=== PATIENT | male | born 1965 | race African-American/Black ===

== ENCOUNTER → 2021-12-21 10:54 | Outpatient (BNVA) | payer OTHER, SELFPAY | PROVIDERS: PCP Internal Medicine; Visit Provider Physician Assistant | DX: K59.09 Other constipation (principal); R12 Heartburn; K58.9 Irritable bowel syndrome, unspecified; A04.8 Other specified bacterial intestinal infections; Z86.79 Personal history of other diseases of the circulatory system; Z12.11 Encounter for screening for malignant neoplasm of colon | CPT/HCPCS: 99202 ==

== ENCOUNTER 2022-02-13 17:12 | Outpatient (REF) | payer OTHER, SELFPAY | END 2022-02-13 17:13 | disposition home or self-care (01) | LOC: HO.LNP 17:12 | PROVIDERS: Visit Provider Physician Assistant | DX: A04.8 Other specified bacterial intestinal infections (principal) | CPT/HCPCS: 87338 ==

== ENCOUNTER 2022-02-19 14:41 | Outpatient (REF) | payer OTHER, SELFPAY ==
[2022-02-19 15:01] LABS: MANUAL DIFF FLAG NO
[2022-02-19 15:04] LABS: Basophils Percent Auto 0.5 % (0-2); Eosinophils Absolute Auto 0.2 X10*3/uL (0.0-0.4); Eosinophils Percent Auto 1.7 % (0-4); Hemoglobin 13.8 g/dl (14.0-18.0); Imm Gran Abs Auto 0.01 X10*3/uL (0.00-0.03); Imm Gran Pct Auto 0.1 % (0.0-0.4); Lymphocytes Absolute Auto 3.1 X10*3/uL (1.2-4.9); Lymphocytes Percent Auto 35.8 % (20-40); Mean Corpuscular HGB Conc 32.1 g/dl (31.0-36.0); Mean Corpuscular Hemoglobin 26.3 pg (27.0-33.0); Mean Corpuscular Volume 81.9 fL (80.0-98.0); Monocytes Absolute Auto 0.7 X10*3/uL (0.1-1.2); Monocytes Percent Auto 8.5 % (2-11); Neutrophils Absolute Auto 4.6 x10*3/uL (2.0-8.3); Neutrophils Percent Auto 53.4 % (45-73); Platelet Count 193 X10*3/uL (160-400); Red Blood Count 5.25 X10*6/uL (4.60-5.80); Red Cell Distribution Width 15.3 % (11.0-16.0); White Blood Count 8.6 X10*3/uL (4.8-10.8)
[2022-02-19 16:14] LABS: Alanine Aminotransferase 18 U/L (0-40); Albumin Level 4.2 g/dL (3.5-5.0); Alkaline Phosphatase 80 U/L (39-117); Anion Gap 10 (12-20); Aspartate Amino Transferase 30 U/L (5-37); Bilirubin Total 0.4 mg/dL (0.0-1.0); Blood Urea Nitrogen 14 mg/dL (9-16); Calcium 9.3 mg/dL (8.4-10.2); Carbon Dioxide 29 mmol/L (22-29); Chloride 104 mmol/L (96-108); Estimated Glomerular Filt Rate > 60; Glucose Random 102 mg/dL (60-115); Sodium 139 mmol/L (135-145); Thyroid Stimulating Hormone 0.67 uIU/mL (0.32-4.0)
== END 2022-02-19 14:42 | disposition home or self-care (01) ==
LOC: HO.XRAY 14:41
PROVIDERS: PCP Internal Medicine; Visit Provider Physician Assistant
DX: K59.09 Other constipation (principal); K58.9 Irritable bowel syndrome, unspecified; R12 Heartburn; Z86.79 Personal history of other diseases of the circulatory system
CPT/HCPCS: 36415; 74018; 80053; 84443; 85025; 99212

== ENCOUNTER 2024-03-20 07:36 | Inpatient (IN) | payer OTHER, SELFPAY ==
[2024-03-20] VITALS (7 sets, daily range): BP systolic 161–174; BP diastolic 82–107; PULSE 67–97; RESP 14–20; TEMP 36.7–36.8; O2SAT 98–159; BMI 23.9
--- NOTE | ~2024-03-20 | CT_ITS ---
EXAMINATION: CT ANGIOGRAM HEAD AND NECK CLINICAL INFORMATION: Left-sided weakness. COMPARISON: None available. TECHNIQUE: Noncontrast axial imaging of the head was performed. This was followed by test bolus sequences and head and neck intravenous bolus administration mL of . Helical imaging was performed in the axial plane from the aortic arch to the skull vertex. A [address] head was also obtained. The data was processed at the fibre technologist's workstation for generation of MIP sequences. Angled MIPs and volume rendered reformatted images were also generated at an offline 3D workstation. Stenoses are assessed in accordance with NASCET criteria unless otherwise indicated. This CT examination was performed using dose optimization techniques as appropriate, variously including the following: *Automated exposure control *Adjustment of mA and/or kV according to patient size (this includes techniques or standardized protocols for targeted exams where dose is matched to indication/reason for exam; i.e. extremities or head) *Use of iterative reconstruction technique FINDINGS: NONCONTRAST HEAD CT: There is no evidence of intracranial hemorrhage or extra-axial fluid collection. There is no mass effect, or edema. No CT evidence of acute territorial infarct. Ventricles, sulci, and cisterns are normal in size and configuration for patient age. No hydrocephalus. No midline shift. Negative hyperdense MCA sign. Negative insular ribbon sign. No significant white matter abnormalities. Mild atheromatous calcification of the bilateral carotid siphons and V4 segments vertebral arteries bilaterally. Globes and orbital contents image normally. No extracranial soft tissue abnormalities. The paranasal sinuses, mastoid air cells, and tympanic cavities are normally aerated. No suspicious bony abnormalities. NECK CTA: -AORTIC ARCH: Normal in caliber without aneurysm. Mild atheromatous calcified plaque. -GREAT VESSEL ORIGINS: 3 vessel branching pattern. Great vessels mildly patent. -RIGHT COMMON CAROTID ARTERY: Normal in course and caliber to the level of the bifurcation. -CERVICAL RIGHT INTERNAL CAROTID ARTERY: Mild calcific atherosclerotic disease of the carotid bulb and proximal internal carotid artery without flow-limiting stenosis. -LEFT COMMON CAROTID ARTERY: Normal in course and caliber to the level of the bifurcation. -CERVICAL LEFT INTERNAL CAROTID ARTERY: Mild calcific atherosclerotic disease of the carotid bulb and proximal internal carotid artery without flow-limiting stenosis. -CERVICAL RIGHT VERTEBRAL ARTERY: Patent origin. Normal in course and caliber into the skull base. -CERVICAL LEFT VERTEBRAL ARTERY: Mildly dominant. Moderate origin stenosis secondary to calcific plaque. Remainder of the vessel is normal in course and caliber into the skull base. OTHER, SOFT TISSUES: -Globally enlarged thyroid without discrete nodule is detected. -No masses or adenopathy. -Lung apices demonstrate no abnormalities. -Imaged superior mediastinal structures appear normal. OSSEOUS STRUCTURES: -Degenerative changes of the cervical spine present with large ventral disc osteophytes spanning C3-C5. These indent upon the anterior right retropharyngeal space. -Prior anterior plate and screw fusion of C5-6 with disc prosthesis. No complication. 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 CTA OF THE BRAIN: -INTRACRANIAL INTERNAL CAROTID ARTERIES: Calcific atherosclerotic disease of the intracranial internal carotid arteries without occlusion or flow-limiting stenosis. No aneurysm. -RIGHT ANTERIOR CEREBRAL ARTERY: Normal A1 segment. Normal arborization of the distal segments. -LEFT ANTERIOR CEREBRAL ARTERY: Normal A1 segment. Normal arborization of the distal segments. -ANTERIOR COMMUNICATING ARTERY: Normal. -RIGHT MIDDLE CEREBRAL ARTERY: Normal M1 segment of the MCA without focal stenosis or occlusion. Normal arborization of the distal segments. -LEFT MIDDLE CEREBRAL ARTERY: Normal M1 segment of the MCA without focal stenosis or occlusion. Normal arborization of the distal segments. -RIGHT VERTEBRAL ARTERY V4: Normal in course and caliber. Normal PICA branch. -LEFT VERTEBRAL ARTERY V4: Normal in course and caliber. Normal PICA branch. -BASILAR ARTERY: Normal without focal stenosis or occlusion. Normal appearance of the proximal superior cerebellar arteries. Normal basilar tip. Normal right AICA branch. Duplicated left AICA branches. -RIGHT POSTERIOR CEREBRAL ARTERY: Normal P1 segment. Normal opacification of the distal BORING MACHINE OPERATOR segments. -LEFT POSTERIOR CEREBRAL ARTERY: Normal P1 segment. Normal opacification of the distal BORING MACHINE OPERATOR segments. -POSTERIOR COMMUNICATING ARTERIES: Not well seen. MIPPED reconstructions demonstrate no vascular territories of oligemia. Normal opacification of the superior sagittal, straight, transverse, and sigmoid sinuses. No venous thrombosis. CT/CT angio head neck IMPRESSION: 1. No evidence of acute cranial hemorrhage, mass effect, edema, or acute territorial infarction. 2. Moderate stenosis at the origin of the left vertebral artery. 3. Otherwise, no additional evidence of significant stenosis, occlusion, dissection, or aneurysm in the major cervical or intracranial arterial circulation. 4. No evidence of venous thrombosis. 5. Globally enlarged thyroid gland. 6. Additional ancillary findings as discussed in the body of the report. Electronically signed by: Deshawn Constantino MD 03/20/2024 11:10 AM [place]
--- NOTE | 2024-03-20 07:54 | ED_ITS ---
HPI - General Adult General Chief complaint: Weakness Stated complaint: LIMPING LEG PAIN Time Seen by Provider: 03/20/24 07:54 History of Present Illness ED Provider: Rosa IRAHETA narrative: The patient is a 58-year-old male who says that yes shopping he started to feel that the left side of his body felt heavy and weak. This was at around 15:00. The symptoms persisted throughout the evening. He went to bed last night with these symptoms present but he became more concerned this morning when he woke up and the symptoms were present and so he had his girlfriend called 911 and he was brought to the hospital. Not had any difficulty speaking. He has not missed any facial changes. He may have a mild headache but no severe headache. The patient says that he has experienced similar symptoms when he has had potassium problems in the past. He says that his potassium problems were usually attributed to his blood pressure medications. No chest pain or shortness of breath. No fever, sweats, chills. Related Data Home Medications ?Medication ?Instructions ?Recorded ?Confirmed docusate sodium 100 mg capsule 100 mg PO DAILY 12/21/21 02/19/22 (Colace) lisinopril 5 mg tablet 5 mg PO DAILY 12/21/21 02/19/22 Previous Rx's ?Medication ?Instructions ?Recorded methylcellulose (laxative) 500 mg 500 mg PO TID #90 tabs 12/21/21 tablet (Citrucel) bisacodyl 10 mg rectal suppository 10 mg AL DAILY PRN constipation 02/19/22 (Dulcolax (bisacodyl)) #20 ea docusate sodium 100 mg capsule 200 mg (2 x 100 mg) PO BEDTIME #60 02/19/22 (Colace) caps polyethylene glycol 3350 17 17 g PO DAILY #510 grams 02/19/22 gram/dose oral powder (Miralax) Allergies Allergy/AdvReac Type Severity Reaction Status Date / Time No Known Allergies Allergy Verified 03/20/24 07:55 Review of Systems 2 Review of Systems: Yes all other systems are reviewed and are negative [facility] Past Medical History Surgical History Hx of heart surgery Hx of hernia repair Hx of neck surgery Family History Family History Mother HTN (hypertension) Maternal Grandmother HTN (hypertension) Social History Social History Household Members: Family Alcohol intake: current Patient Tobacco Use Status: Current everyday Tobacco user Tobacco use type: Cigarette Cigarette Packs Per Day: 1.5 Cigarettes Per Day: 10 Years Smoked: 15 Substance Use Type: Marijuana Advance Directives: No Advance Directives Information Provided: Yes Physical Exam ED Vital Signs: Vital Signs - 24 hr 03/20/24 07:53 03/20/24 08:26 03/20/24 08:47 Temperature 98.2 F Pulse Rate 74 69 67 Respiratory Rate 16 20 16 Blood Pressure 161/102 H 161/99 H Pulse Oximetry 100 100 159 H Oxygen Delivery Method Room Air Room Air Room Air BMI result Body Mass Index 23.9 Const Other: The patient is a slim 58-year-old man who was awake and alert with a normal mental status. He does not appear obviously acutely ill. He is not exhibit any obvious neurological deficit. HENMT Other: Face is symmetrical. Tongue is midline. Eyes Other: Pupils are round equal, conjunctivae are clear, extraocular movements are intact bilaterally, including lateral movements in both directions. Visual watkins are intact to confrontation. Neck Neck: Yes no JVD Resp Effort & Inspection: normal respiratory effort Auscultation: clear to auscultation bilaterally Cardio Rate: regular rate Rhythm: regular rhythm Heart sounds: S1 normal heart sound present and S2 normal heart sound present GI Other: The abdomen is soft and nontender Skin Other: Skin is dry and unremarkable Neuro Other: The patient is awake and alert with a normal mental status. He is appropriately oriented. He follows commands appropriately. Lateral gaze is intact. Visual watkins are intact. The face is symmetrical. Speech is normal, no aphasia or dysarthria. The patient reports a sense of weakness in the left arm in the left leg but he seems to have 5/5 strength in both extremities although he does seem stronger on the right side. Finger-nose is intact. Heel-winter is intact. Sensation is intact throughout. When he walks he seems to be making additional effort to move the left leg. When I check his strength I have a suspicion that there is an extremely subtle weakness to the left arm and the left leg but the weakness is of both extremities are so subtle I do not feel I can give them a point on the NIH stroke scale. Therefore the NIH stroke scale for this patient is 0. Medications Administered Discontinued Medications Generic Name Dose Route Start Last Admin Trade Name Annamarie PRN Reason Stop Dose Admin Iohexol 70 ml 03/20/24 10:21 03/20/24 10:27 Iohexol 350 Mg/Ml 100 Ml Infus..Btl IV 03/20/24 10:22 70 ml ONCE ONE Administration Medical Decision Making Medical Decision Making [facility] Narrative: The patient is a 58-year-old male who presents with a complaint that the left arm in the left leg feel ?heavy. ? On my exam I really do not appreciate any definite weakness except for possibly some weakness that is so subtle it is hard to characterize. Functionally the patient's NIH stroke scale is 0. He does have some difficulty using the left leg when he walks. This is the most objective finding. Symptoms began yesterday. He is therefore well outside the window for consideration of thrombolytic therapy. additionally his symptoms are so mild he would not has been a thrombolytic candidate. Nevertheless I think his physical exam suggests a very subtle stroke affecting the left arm and left leg. I will order a swallow screen which I assume he will pass and will order aspirin. He is hypertensive. This will be tolerated. He will be admitted to the hospitalist service. Lab Data 03/20/24 08:34 03/20/24 08:34 Labs: Lab Results 03/20/24 03/20/24 Range/Units 08:34 11:15 WBC 5.9 (4.8-10.8) X10*3/uL RBC 5.33 (4.60-5.80) X10*6/uL Hgb 15.5 (14.0-18.0) g/dl Hct 45.5 (42.0-52.0) % MCV 85.4 (80.0-98.0) fL MCH 29.1 (27.0-33.0) pg MCHC 34.1 (31.0-36.0) g/dl RDW 15.4 (11.0-16.0) % Plt Count 179 (160-400) X10*3/uL MPV 9.8 (9.4-12.4) fL Immature Gran % (Auto) 0.2 (0.0-0.4) % Neut % (Auto) 55.3 (45-73) % Lymph % (Auto) 35.9 (20-40) % [place] % (Auto) 6.9 (2-11) % Eos % (Auto) 1.0 (0-4) % Baso % (Auto) 0.7 (0-2) % Lymph # (Auto) 2.1 (1.2-4.9) X10*3/uL [place] # (Auto) 0.4 (0.1-1.2) X10*3/uL Eos # (Auto) 0.1 (0.0-0.4) X10*3/uL Baso # (Auto) 0.0 (0.0-0.2) X10*3/uL Abs Immat Gran (auto) 0.01 (0.00-0.03) X10*3/uL Absolute Neuts (auto) 3.3 (2.0-8.3) x10*3/uL Absolute Nucleated RBC 0.000 (0.0-0.012) X10*3/uL Nucleated RBC % (auto) 0.0 (0.0-0.2) /100WBC Sodium 141 (135-145) mmol/L Potassium 3.7 (3.3-5.1) mmol/L Chloride 109 H (96-108) mmol/L Carbon Dioxide 27 (22-29) mmol/L Anion Gap 9 L (12-20) BUN 6 L (9-16) mg/dL Creatinine 0.77 (0.5-1.4) mg/dL Estim Creat Clear Calc 96.5 Estimated GFR > 60 Random Glucose 83 (60-115) mg/dL Calcium 8.2 L D (8.4-10.2) mg/dL Magnesium 1.9 (1.6-2.6) mg/dL Total Bilirubin 0.4 (0.0-1.0) mg/dL Direct Bilirubin 0.2 (0.0-0.5) mg/dL AST 31 (5-37) U/L ALT 23 (0-40) U/L Alkaline Phosphatase 66 (39-117) U/L Troponin I High Sens < 2.7 (<3.5-35.0) ng/L C-Reactive Protein < 0.10 (< or = 0.50) mg/dL B-Natriuretic Peptide 40 (<100) pg/mL Total Protein 7.4 (6.5-8.0) g/dL Albumin 3.9 (3.5-5.0) g/dL Urine Color Yellow Urine Appearance Clear Urine pH 6.5 (5.0-9.0) Ur Specific [place] >= 1.030 H (1.005-1.025) Urine Protein Trace (Neg-Trace) mg/dL Urine Glucose (UA) Negative (Negative) mg/dL Urine Ketones Negative (Negative) mg/dL Urine Blood Negative (Negative) Urine Nitrite Negative (Negative) Ur Leukocyte Esterase Negative (Negative) Ethyl Alcohol 76 mg/dL Influenza Type A (PCR) NEGATIVE (Negative) Influenza Type B (PCR) NEGATIVE (Negative) RSV RNA Qual (PCR) NEGATIVE (Negative) SARS-CoV-2 RNA (RT-PCR) NEGATIVE (Negative) Independent Interpretation I performed an independent interpretation of an: EKG Interpretation: EKG at await 1 2 shows an incomplete right bundle branch block. He has T-wave inversions inferiorly and laterally. Critical Care Time Critical Care Time Critical Care Time: Yes Total Critical Care Time: 35 Attestation: The patient was critically ill with a high probability of imminent or life- threatening deterioration. ?I spent greater than 30 minutes of discontinuous time evaluating the patient, delivering critical care at the bedside, discussing evaluating data with consultants. ?Critical care time does not include time spent performing separately billable procedures or teaching. ?Time spent performing critical care with 35 minutes. Discharge Plan Discharge Prescriptions: No Action polyethylene glycol 3350 [Miralax] 17 gram/dose powder 17 g PO DAILY Qty: 510 6RF docusate sodium [Colace] 100 mg capsule 200 mg PO BEDTIME Qty: 60 5RF bisacodyl [Dulcolax (bisacodyl)] 10 mg suppository 10 mg AL DAILY PRN (Reason: constipation) Qty: 20 0RF lisinopril 5 mg tablet 5 mg PO DAILY docusate sodium [Colace] 100 mg capsule 100 mg PO DAILY Citrucel 500 mg tablet 500 mg PO TID Qty: 90 5RF Print Language: Yoruba
--- NOTE | 2024-03-20 07:59 | ECG_ITS ---
Test Reason : lt side weakness Blood Pressure : */* mmHG Vent. Rate : 69 BPM Atrial Rate : 69 BPM P-R Int : 156 ms QRS Dur : 92 ms QT Int : 412 ms P-R-T Axes : 37 61 -37 degrees QTcB Int : 441 ms Normal sinus rhythm Incomplete right bundle branch block Minimal voltage criteria for LVH, may be normal variant ( Sokolow-Canales ) T wave abnormality, consider inferolateral ischemia Abnormal ECG No previous ECGs available Referred By: Oracio Lee Electronically Signed By: GENA ESPINOSA MD
--- OUTSIDE RECORDS SUMMARY | 2024-03-20 08:21 | XMS_ITS ---
Author Name [facility] [facility] [place] Address [address] [place] [id number] Care Team Providers Care Diploma Dental Assistant Name Role Phone JAMMIE MCFARLANE Primary Care Provider Unavailabl e Insurance Providers: All historical and current Section Date Range: From patient's date of to the date document was created. This section includes the names of all active insurance providers for the patient. Insurance Provider Type of Coverage Plan Name Start of Policy Coverage End of Policy Coverage Group Number Member ID Insurance Provider's Telephone Number Policy Cullen's Name Patient's Relationship to Policy Cullen [facility] Mar 04, 2021 MEDICAI D [id number] [phone] [facility],[place] LTER PATIENT MEDICAID MEDICAID [facility] [place] Mar 11, 2017 MEDICAI D [id number] CHES,MI LTER PATIENT Selected Encounter This section includes the information on record at [place] for the Encounter. Date/Time Encounter Type Encounter Description Reason Pro vider Source Oct 28, 2023 10:39 AM Outpatient Encounter ADMIN PAT ACTIVTIES (MASNONCT) I[facility] Encounter Template Text not used by [facility] Plan of Treatment: Future Appointments (+ 6 months) and Future Tests (+/- 45 days) The Plan of Treatment section includes future care activities for the [facility] This section includes future appointments and future orders which are active, pending or scheduled. Future Appointments This section includes appointments that were scheduled to occur 6 months from the date of the Encounter, up to a maximum of 20 appointments. The data comes from all [facility]. Appointment Date/Time Appointment Type Appointme nt Facility Name Nov 22, 2023 03:00 PM AMBULATORY - MEDICINE [facility] Dec 05, 2023 09:00 AM AMBULATORY - PSYCHIATRY [facility] Dec 19, 2023 10:00 AM AMBULATORY - PSYCHIATRY [facility] Apr 15, 2024 02:30 PM AMBULATORY - NONE [facility] [place] [facility] Active, Pending, and Scheduled Orders This section includes a listing of several types of active, pending, and scheduled orders, including clinic medications orders, diagnostic test orders, procedure orders and consult orders; where the start date of the order is 45 days before the date of the Encounter or 45 days after the date of theEncounter. The data comes from all [facility]. Test Date/Time Test Type Test Details Facility Name Nov 22, 2023 03:53 PM Consult Order COMMUNITY CARE-COLONOSCOPY SCREENING Cons Interventionist's [facility] Social History: Smoking Status (Most current) and Tobacco Use (All prior to encounter date) This section includes the most current, and the historical, smoking and tobacco- related health factors from the [place] facility where the Encounter took place. Current Smoking Status This section includes the most current smoking, or tobacco-related health factor, from the [place] facility where the Encounter took place. Date/Time Current Smoking Status Comment Delphine bennett Apr 17, 2021 09:00 AM VA-TOBACCO USER EVERY DAY [facility] [place] [facility] Tobacco Use History This section includes a history of the smoking, or tobacco-related health factors, that were collected on or before the date of the Encounter. The data comes from the [place] facility where the Encounter took place. 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 May 11, 2020 10:54 AM VA-TOBACCO USE > 15 LESS THAN 30 YEARS [facility] May 11, 2020 10:54 AM VA-TOBACCO USE ADVICE [facility] May 11, 2020 10:54 AM VA-TOBACCO USE PULMONOLOGIST INTENSIVIST YES Vet would like Patche to help him quit. [facility] May 11, 2020 10:54 AM VA-TOBACCO USE MED NOTIFY PROVIDER Wants Patches. [facility] May 11, 2020 10:54 AM VA-TOBACCO USER EVERY DAY [facility] Encounter Notes: All associated encounter notes This section contains the clinical notes associated to the Encounter. Date/Time Encounter Note(s) Provider Source Oct 30, 2023 08:41 AM ADDENDUM: LOCAL TITLE: Addendum STANDARD TITLE: ADDENDUM DATE OF NOTE: OCT 30, 2023@08:41:56 ENTRY DATE: OCT 30, 2023@08:41:56 AUTHOR: RUSH HEDRICK EXP COSIGNER: URGENCY: STATUS: COMPLETED I do not see this medication in patient chart. Please inform the Thank you /damien/ RUSH HEDRICK MD PRIMARY CARE PHYSICIAN Signed: 10/30/2023 08:42 Receipt Acknowledged By: 10/30/2023 11:30 /damien/ CATALINA HUERTA RN-BC REGISTERED NURSE === --- Original Document --- 10/28/23 CCC: SCHEDULING ADMINISTRATION: Patient Demographics Patient Name: ABDIAZIZ VILLAVICENCIO Patient Primary Phone: [phone] Patient Primary Address: [address] [place] [id number] Patient : 1965 Patient Age: 58 Caller/Recipient Relation to Patient: Self Administrative Administrative Note Reason: Other Administrative Note Comments: called requesting to renew the below medications. 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 [place] states he is completely out. denied symptoms and declined transfer to triage at this time. Kindly assist with a return call [phone] HCTZ 12.5/LISINOPRIL 20MG TAB ASPIRIN 81MG EC TAB HYDROCHLOTHIAZIDE IMPORTANT: This note was created by [facility] staff. Please do not alert the staff member by adding them as a signer for future communications. Alerts are not monitored by this user. /damien/ WILFRED FLETCHER [facility] Signed: 10/28/2023 10:39 Receipt Acknowledged By: 10/28/2023 12:15 /es/ CATALINA HUERTA RN- REGISTERED NURSE 10/30/2023 08:41 /damien/ RUSH HEDRICK MD PRIMARY CARE PHYSICIAN RUSH HEDRICK [facility] [place] [facility] Oct 28, 2023 10:39 AM ADMINISTRATIVE NOT E: LOCAL TITLE: CCC: SCHEDULING ADMINISTRATION STANDARD TITLE: ADMINISTRATIVE NOTE DATE OF NOTE: OCT 28, 2023@10:39:14 ENTRY DATE: OCT 28, 2023@10:39:14 AUTHOR: WILFRED CUI EXP COSIGNER: URGENCY: STATUS: COMPLETED CCC: SCHEDULING ADMINISTRATION Has ADDENDA Patient Demographics Patient Name: ABDIAZIZ VILLAVICENCIO Patient Primary Phone: [phone] Patient Primary Address: [address] [place] [id number] Patient : 1965 Patient Age: 58 Caller/Recipient Relation to Patient: Self Administrative Administrative Note Reason: Other Administrative Note Comments: called requesting to renew the below medications. 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 [place] states he is completely out. denied symptoms and declined transfer to triage at this time. Kindly assist with a return call [phone] HCTZ 12.5/LISINOPRIL 20MG TAB ASPIRIN 81MG EC TAB HYDROCHLOTHIAZIDE IMPORTANT: This note was created by [facility] staff. Please do not alert the staff member by adding them as a signer for future communications. Alerts are not monitored by this user. /damien/ WILFRED FLETCHER 1 [facility] Signed: 10/28/2023 10:39 Receipt Acknowledged By: 10/28/2023 12:15 /damien/ CATALINA HUERTA RN-BC REGISTERED NURSE 10/30/2023 08:41 /damien/ RUSH HEDRICK MD PRIMARY CARE PHYSICIAN 10/30/2023 ADDENDUM STATUS: COMPLETED I do not see this medication in patient chart. Please inform the Thank you /james HEDRICK MD PRIMARY CARE PHYSICIAN Signed: 10/30/2023 08:42 Receipt Acknowledged By: * AWAITING SIGNATURE * SAÚL FRANKS JESSICA L [facility]
--- OUTSIDE RECORDS SUMMARY | 2024-03-20 08:21 | XMS_ITS | Encounter Summary ---
Author Name [facility] [facility] [place] Organization [facility] [place] Address [address] [place] [address] Care Team Providers Care Vp Treasurer Name Role Phone JAMMIE MCFARLANE Primary Care [...] Cullen's Name Patient's Relationship to Policy [facility] Mar 04, 2021 MEDICAI D [id number] [place], [place] LTER PATIENT MEDICAID MEDICAID [facility] [place] Mar 11, 2017 MEDICAI D [id number] [facility] LTER PATIENT Selected Encounter This section includes the information on record at [place] for the Encounter. Date/Time Encounter Type Encounter Description Reason Pro vider Source Oct 28, 2023 12:11 PM Outpatient Encounter PRIMARY CARE/MEDICINE IHE Encounter Template Text not used by [facility] Plan of Treatment: Future Appointments (+ 6 months) and Future Tests (+/- 45 days) The Plan of Treatment section includes future care activities for the patient from all [facility] treatmentfacilities. This section includes future appointments and future orders which are active, pending or scheduled. Future Appointments This section includes appointments that were scheduled to occur 6 months from the date of the Encounter, up to a maximum of 20 appointments. The data comes from all [place] treatment [facility]. Appointment Date/Time Appointment Type Appointme nt Facility Name Nov 22, 2023 03:00 PM AMBULATORY - MEDICINE [facility] Dec 05, 2023 09:00 AM AMBULATORY - PSYCHIATRY [facility] Dec 19, 2023 10:00 AM AMBULATORY - PSYCHIATRY [facility] Apr 15, 2024 02:30 PM AMBULATORY - NONE [facility] Active, Pending, and Scheduled Orders This section includes a listing of several types of active, pending, and scheduled orders, including clinic medications orders, diagnostic test orders, procedure orders and consult orders; where the start date of the order is 45 days before the date of the Encounter or 45 days after the date of theEncounter. The data comes from all [facility]. Test Date/Time Test Type Test Details Facility Name Nov 22, 2023 03:53 PM Consult Order COMMUNITY CARE-COLONOSCOPY SCREENING Cons Surface [facility] Choice [place] Social History: Smoking Status (Most current) and Tobacco Use (All prior to encounter date) This section includes the most current, and the historical, smoking and tobacco- related health factors from the [place] facility where the Encounter took place. Current Smoking Status This section includes the most current smoking, or tobacco-related health factor, from the [place] facility where the Encounter took place. Date/Time Current Smoking Status Comment [facility] Apr 17, 2021 09:00 AM VA-TOBACCO USER EVERY DAY [facility] Tobacco Use History This section includes a history of the smoking, or tobacco-related health factors, that were collected on or before the date of the Encounter. The data comes from the [place] facility where the Encounter took place. 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 [facility] May 11, 2020 10:54 AM VA-TOBACCO USE MED NOTIFY PROVIDER Wants Patches. [facility] May 11, 2020 10:54 AM VA-TOBACCO USER EVERY DAY [facility] Encounter Notes: All associated encounter notes This section contains the clinical notes associated to the Encounter. Date/Time Encounter Note(s) Provider Source Oct 30, 2023 09:02 AM ADDENDUM: LOCAL TITLE: Addendum STANDARD TITLE: ADDENDUM DATE OF NOTE: OCT 30, 2023@09:02:05 ENTRY DATE: OCT 30, 2023@09:02:06 AUTHOR: RUSH HEDRICK EXP COSIGNER: URGENCY: STATUS: COMPLETED I renew his baby aspirin. The diuretics were prescribed only for 1 month in March We are going to discuss during his office visit /damien/ RUSH HEDRICK MD PRIMARY CARE PHYSICIAN Signed: 10/30/2023 09:02 Receipt Acknowledged By: 11/01/2023 15:38 /damien/ CATALINA HUERTA RN-BC REGISTERED NURSE ======== --- Original Document --- 10/28/23 OUTPATIENT MEDICATION REQUEST: Please renew. Noelle reports that he is out of supply for following medications: 03/07/2023 14:08 New Order entered by CHILO SINGH (PHYSICIAN) Order Text: ASPIRIN TAB,EC 81MG TAKE ONE TABLET BY MOUTH ONCE DAILY TO PREVENT STROKE/HEART ATTACK Quantity: 90 Refills: 0 Indication: FOR MYOCARDIAL REINFARCTION PREVENTION 03/08/2023 03:16 Change entered by MORALES CARDONA (Availigent) Changed to: ASPIRIN TAB,EC 81MG TAKE ONE TABLET BY MOUTH ONCE DAILY TO PREVENT STROKE/HEART ATTACK Quantity: 120 Refills: 0 Indication: FOR MYOCARDIAL REINFARCTION PREVENTION 03/07/2023 14:09 New Order entered by CHILO SINGH (PHYSICIAN) Order Text: HYDROCHLOROTHIAZIDE/TRIAMTERENE TAB HCTZ 25/TRIAMTERENE 37.5MG TAB TAKE ONE TABLET BY MOUTH ONCE DAILY Quantity: 30 Refills: 0 Indication: FOR HIGH BLOOD PRESSURE /CATALINA Henderson REGISTERED NURSE Signed: 10/28/2023 12:18 Receipt Acknowledged By: 10/30/2023 09:01 /damien/ RUSH HEDRICK MD PRIMARY CARE PHYSICIAN 10/28/2023 ADDENDUM STATUS: COMPLETED Called [place] and advised that his EMR indicates that he received a 30 day supply of his hctz/triamterine in Mar 2023 and should have run out in Apr 2023. [place] reports that he had needed to be scheduled for his annual appt with PCP and then found out that PCP had left clinic. Author advised that medication requests have been forwarded to new PCP for review and that he will be contacted to schedule an appt with his currently assigned PCP to discuss management of his chronic medical conditions. /CATALINA Henderson REGISTERED NURSE Signed: 10/28/2023 12:21 10/28/2023 ADDENDUM STATUS: COMPLETED Please contact [place] to assist with scheduling PCP appt for for follow up on chronic diagnoses. /CATALINA Henderson REGISTERED NURSE Signed: 10/28/2023 12:21 Receipt Acknowledged By: 10/28/2023 15:05 /james WANG ADVANCED FINANCIAL SERVICES EDUCATION CONSULTANT 10/28/2023 ADDENDUM STATUS: COMPLETED THIS SOLUTION COORDINATOR HAD SPOKEN TO TO SCHEDULE F2F APPT WITH CWM/SO/PACT EIGHT PROVIDER ON 11/20/2023 AT 14:00 FOR 60MINS NEW PATIENT AND TO DISCUSS CHRONIC DIAGNOSES. /damien/ LEOPOLDO WANG ADVANCED FINANCIAL SERVICES EDUCATION CONSULTANT Signed: 10/28/2023 15:08 10/28/2023 ADDENDUM STATUS: COMPLETED THIS SOLUTION COORDINATOR HAD SPOKEN TO TO RESCHEDULE F2F APPT WITH CWM/SO/PACT EIGHT PROVIDER ON 11/22/2023 AT 15:00 FOR NEW PT 60MINS FOR CHRONIC DIAGNOSES. /james WANG ADVANCED FINANCIAL SERVICES EDUCATION CONSULTANT Signed: 10/28/2023 15:13 RUSH HEDRICK YANCEY Oct 28, 2023 12:21 PM ADDENDUM: LOCAL TITLE: Addendum STANDARD TITLE: ADDENDUM DATE OF NOTE: OCT 28, 2023@12:21:19 ENTRY DATE: OCT 28, 2023@12:21:19 AUTHOR: SAÚL FRANKSER: URGENCY: STATUS: COMPLETED Please contact [place] to assist with scheduling PCP appt for [place] for follow up on chronic diagnoses. /CATALINA Henderson RN-BC REGISTERED NURSE Signed: 10/28/2023 12:21 Receipt Acknowledged By: 10/28/2023 15:05 /james WANG ADVANCED FINANCIAL SERVICES EDUCATION CONSULTANT ======== --- Original Document --- 10/28/23 OUTPATIENT MEDICATION REQUEST: Please renew. reports that he is out of supply for following medications: 03/07/2023 14:08 New Order entered by CHILO SINGH (PHYSICIAN) Order Text: ASPIRIN TAB,EC 81MG TAKE ONE TABLET BY MOUTH ONCE DAILY TO PREVENT STROKE/HEART ATTACK Quantity: 90 Refills: 0 Indication: FOR MYOCARDIAL REINFARCTION PREVENTION 03/08/2023 03:16 Change entered by MORALES CARDONA ([employer]ail[employer]) Changed to: ASPIRIN TAB,EC 81MG TAKE ONE TABLET BY MOUTH ONCE DAILY TO PREVENT STROKE/HEART ATTACK Quantity: 120 Refills: 0 Indication: FOR MYOCARDIAL REINFARCTION PREVENTION 03/07/2023 14:09 New Order entered by CHILO SINGH (PHYSICIAN) Order Text: HYDROCHLOROTHIAZIDE/TRIAMTERENE TAB HCTZ 25/TRIAMTERENE 37.5MG TAB TAKE ONE TABLET BY MOUTH ONCE DAILY Quantity: 30 Refills: 0 Indication: FOR HIGH BLOOD PRESSURE /es/ CATALINA HUERTA RN-BC REGISTERED NURSE Signed: 10/28/2023 12:18 Receipt Acknowledged By: * AWAITING SIGNATURE * RUSH HEDRICK 10/28/2023 ADDENDUM STATUS: COMPLETED Called and advised that his EMR indicates that he received a 30 day supply of his hctz/triamterine in Mar 2023 and should have run out in Apr 2023. reports that he had needed to be scheduled for his annual appt with PCP and then found out that PCP had left clinic. Author advised that medication requests have been forwarded to new PCP for review and that he will be contacted to schedule an appt with his currently assigned PCP to discuss management of his chronic medical conditions. /damien/ CATALINA HUERTA RN-BC REGISTERED NURSE Signed: 10/28/2023 12:21 SAÚL FRANKS Oct 28, 2023 12:11 PM MEDICATION MGT NOT E: LOCAL TITLE: OUTPATIENT MEDICATION REQUEST STANDARD TITLE: MEDICATION MGT NOTE DATE OF NOTE: OCT 28, 2023@12:11 ENTRY DATE: OCT 28, 2023@12:11:57 AUTHOR: SAÚL FRANKS COSIGNER: URGENCY: STATUS: COMPLETED OUTPATIENT MEDICATION REQUEST Has ADDENDA Please renew. reports that he is out of supply for following medications: 03/07/2023 14:08 New Order entered by CHILO SINGH (PHYSICIAN) Order Text: ASPIRIN TAB,EC 81MG TAKE ONE TABLET BY MOUTH ONCE DAILY TO PREVENT STROKE/HEART ATTACK Quantity: 90 Refills: 0 Indication: FOR MYOCARDIAL REINFARCTION PREVENTION 03/08/2023 03:16 Change entered by MORALES CARDONA (CLINICAL PHARMA) Changed to: ASPIRIN TAB,EC 81MG TAKE ONE TABLET BY MOUTH ONCE DAILY TO PREVENT STROKE/HEART ATTACK Quantity: 120 Refills: 0 Indication: FOR MYOCARDIAL REINFARCTION PREVENTION 03/07/2023 14:09 New Order entered by CHILO SINGH (PHYSICIAN) Order Text: HYDROCHLOROTHIAZIDE/TRIAMTERENE TAB HCTZ 25/TRIAMTERENE 37.5MG TAB TAKE ONE TABLET BY MOUTH ONCE DAILY Quantity: 30 Refills: 0 Indication: FOR HIGH BLOOD PRESSURE /damien/ CATALINA HUERTA RN-BC REGISTERED NURSE Signed: 10/28/2023 12:18 Receipt Acknowledged By: 10/30/2023 09:01 /damien/ RUSH HEDRICK MD PRIMARY CARE PHYSICIAN 10/28/2023 ADDENDUM STATUS: COMPLETED Called [place] and advised that his EMR indicates that he received a 30 day supply of his hctz/triamterine in Mar 2023 and should have run out in Apr 2023. [place] reports that he had needed to be scheduled for his annual appt with PCP and then found out that PCP had left clinic. Author advised that medication requests have been forwarded to new PCP for review and that he will be contacted to schedule an appt with his currently assigned PCP to discuss management of his chronic medical conditions. /CATALINA Henderson RN-KJ REGISTERED NURSE Signed: 10/28/2023 12:21 10/28/2023 ADDENDUM STATUS: COMPLETED Please contact [place] to assist with scheduling PCP appt for [place] for follow up on chronic diagnoses. /CATALINA Henderson RN-KJ REGISTERED NURSE Signed: 10/28/2023 12:21 Receipt Acknowledged By: 10/28/2023 15:05 /damien/ LEOPOLDO WANG ADVANCED FINANCIAL SERVICES EDUCATION CONSULTANT 10/28/2023 ADDENDUM STATUS: COMPLETED THIS SOLUTION COORDINATOR HAD SPOKEN TO TO SCHEDULE F2F APPT WITH CWM/SO/PACT EIGHT PROVIDER ON 11/20/2023 AT 14:00 FOR 60MINS NEW PATIENT AND TO DISCUSS CHRONIC DIAGNOSES. /damien/ LEOPOLDO WANG ADVANCED FINANCIAL SERVICES EDUCATION CONSULTANT Signed: 10/28/2023 15:08 10/28/2023 ADDENDUM STATUS: COMPLETED THIS SOLUTION COORDINATOR HAD SPOKEN TO TO RESCHEDULE F2F APPT WITH CWM/SO/PACT EIGHT PROVIDER ON 11/22/2023 AT 15:00 FOR NEW PT 60MINS FOR CHRONIC DIAGNOSES. /es/ LEOPOLDO WANG ADVANCED FINANCIAL SERVICES EDUCATION CONSULTANT Signed: 10/28/2023 15:13 10/30/2023 ADDENDUM STATUS: COMPLETED I renew his baby aspirin. The diuretics were prescribed only for 1 month in March We are going to discuss during his office visit /es/ RUSH HEDRICK MD PRIMARY CARE PHYSICIAN Signed: 10/30/2023 09:02 Receipt Acknowledged By: * AWAITING SIGNATURE * SAÚL FRANKS KRISTIN [place]
--- OUTSIDE RECORDS SUMMARY | 2024-03-20 08:21 | XMS_ITS | Encounter Summary ---
Author Name [facility] [place] Address [address] [place] [address] Care Team Providers Care Case Repairer Name Role Phone JAMMIE MCFARLANE Primary Care [...] Cullen's Name Patient's Relationship to Policy [facility] Mar 04, 2021 MEDICAI D [id number] [place], [place] LTER PATIENT MEDICAID MEDICAID [facility] [place] Mar 11, 2017 MEDICAI D [id number] [facility] LTER PATIENT Selected Encounter This section includes the information on record at [place] for the Encounter. Date/Time Encounter Type Encounter Description Reason Pro vider Source Oct 24, 2023 03:18 PM Outpatient Encounter PRIMARY CARE/MEDICINE IHE Encounter [...] 20 appointments. The data comes from all [place] treatment [facility]. Appointment Date/Time Appointment Type Appointme nt Facility Name Nov 22, 2023 03:00 PM AMBULATORY - MEDICINE [facility] Dec 05, 2023 09:00 AM AMBULATORY - PSYCHIATRY [facility] Dec 19, 2023 10:00 AM AMBULATORY - PSYCHIATRY [facility] Apr 15, 2024 02:30 PM AMBULATORY - NONE [facility] Active, Pending, and Scheduled Orders This section includes a listing of several types of active, pending, and scheduled orders, including clinic medications orders, diagnostic test orders, procedure orders and consult orders; where the start date of the order is 45 days before the date of the Encounter or 45 days after the date of theEncounter. The data comes from all [facility]. Test Date/Time Test Type Test Details Facility Name Nov 22, 2023 03:53 PM Consult Order COMMUNITY CARE-COLONOSCOPY SCREENING Cons [place]e Sewer's Choice [place] Social History: Smoking Status (Most current) and Tobacco Use (All prior to encounter date) This section includes the most current, and the historical, smoking and tobacco- related health factors from the [place] facility where the Encounter took place. Current Smoking Status This section includes the most current smoking, or tobacco-related health factor, from the [place] facility where the Encounter took place. Date/Time Current Smoking Status Comment [facility] Apr 17, 2021 09:00 AM VA-TOBACCO USER EVERY DAY [facility] Tobacco Use History This section includes a history of the smoking, or tobacco-related health factors, that were collected on or before the date of the Encounter. The data comes from the [place] facility where the Encounter took place. 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 [place] [facility] Apr 17, 2021 09:00 AM VA-TOBACCO USE MED NO [facility] Apr 17, 2021 09:00 AM VA-TOBACCO USE WI 30 MIN [facility]UP [facility] Apr 17, 2021 09:00 AM VA-TOBACCO USER EVERY DAY [facility] May 11, 2020 10:54 AM VA-TOBACCO DOESNT USE WI 30 MIN WAKEUP [facility] May 11, 2020 10:54 AM VA-TOBACCO USE > 15 LESS THAN 30 YEARS 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 [facility] May 11, 2020 10:54 AM VA-TOBACCO USE MED NOTIFY PROVIDER Wants Patches. [facility] May 11, 2020 10:54 AM VA-TOBACCO USER EVERY DAY [facility] Encounter Notes: All associated encounter notes This section contains the clinical notes associated to the Encounter. Date/Time Encounter Note(s) Provider Source Oct 31, 2023 08:48 AM ADDENDUM: LOCAL TITLE: Addendum STANDARD TITLE: ADDENDUM DATE OF NOTE: OCT 31, 2023@08:48:54 ENTRY DATE: OCT 31, 2023@08:48:55 AUTHOR: RUSH HEDRICK EXP COSIGNER: URGENCY: STATUS: COMPLETED Please inform the [place] he is not on lisinopril and hydrochlorothiazide he did not receive these medications from [place] pharmacy. Thank you /damien/ RUSH HEDRICK MD PRIMARY CARE PHYSICIAN Signed: 10/31/2023 08:49 Receipt Acknowledged By: 11/01/2023 15:38 /damien/ CATALINA HUERTA RN-BC REGISTERED NURSE ======== --- Original Document --- 10/24/23 WALK-IN NOTE PRIMARY CARE (T): <====Click to Start Advanced Medical Support presents to the Primary Care clinic with the following request: [ X ]Medication Renewal/Refill [ ]Consultation with Team RN [ ]Symptoms [ ]Other The states they are: [ ]Waiting [ X ]Not Waiting No Walk in visit scheduled with PACT Nurse [ X ] At this encounter the 's demographics were verified. [ X ] At this encounter the [place]'s Insurance information was verified. [ X ] At this encounter the below scheduled visits for the were discussed and appointment reminder card was offered. Future appointments: No data available [place] requesting a medication refill for: Hydrochlorothiazide Lisinopril Baby aspirin 81mg Herron would like to belt picker medications when available. /es/ TIARA DENNY Signed: 10/24/2023 15:23 Receipt Acknowledged By: 10/28/2023 12:15 /es/ CATALINA HUERTA RN-BC REGISTERED NURSE 10/31/2023 11:30 /es/ TENZIN B[place] LPN Licensed Practical Nurse 10/31/2023 08:48 /es/ RUSH HEDRICK MD PRIMARY CARE PHYSICIAN RUSH HEDRICK Oct 24, 2023 03:18 PM PRIMARY CARE NOTE: LOCAL TITLE: WALK-IN NOTE PRIMARY CARE (T) STANDARD TITLE: PRIMARY CARE NOTE DATE OF NOTE: OCT 24, 2023@15:18 ENTRY DATE: OCT 24, 2023@15:19:06 AUTHOR: TIARA GUADARRAMA EXP COSIGNER: URGENCY: STATUS: COMPLETED WALK-IN NOTE PRIMARY CARE (T) Has ADDENDA <====Click to Start Advanced Medical Support Herr[place] presents to the Primary Care clinic with the following request: [ X ]Medication Renewal/Refill [ ]Consultation with Team RN [ ]Symptoms [ ]Other The [place] states they are: [ ]Waiting [ X ]Not Waiting No Walk in visit scheduled with PACT Nurse [ X ] At this encounter the 's demographics were verified. [ X ] At this encounter the [place]'s Insurance information was verified. [ X ] At this encounter the below scheduled visits for the were discussed and appointment reminder card was offered. Future appointments: No data available requesting a medication refill for: Hydrochlorothiazide Lisinopril Baby aspirin 81mg [place] would like to belt picker medications when available. /damien/ TIARA DENNY Signed: 10/24/2023 15:23 Receipt Acknowledged By: 10/28/2023 12:15 /es/ CATALINA HUERTA RN-BC REGISTERED NURSE 10/31/2023 11:30 /damien/ TENZIN BIRMINGHAM LPN Licensed Practical Nurse 10/31/2023 08:48 /damien/ RUSH HEDRICK MD PRIMARY CARE PHYSICIAN 10/31/2023 ADDENDUM STATUS: COMPLETED Please inform the he is not on lisinopril and hydrochlorothiazide he did not receive these medications from [place] pharmacy. Thank you /damien/ RUSH HEDRICK MD PRIMARY CARE PHYSICIAN Signed: 10/31/2023 08:49 Receipt Acknowledged By: * AWAITING SIGNATURE * SAÚL FRANKS SONYA K [place]
--- OUTSIDE RECORDS SUMMARY | 2024-03-20 08:21 | XMS_ITS | Encounter Summary ---
Author Name [facility] Organization [facility] [place] Address [address] [place] [address] Care Team Providers Care Pediatric Hospitalist Name Role Phone JAMMIE MCFARLANE Primary Care [...] Cullen's Name Patient's Relationship to Policy Cullen [facility] Mar 04, 2021 MEDICAI D [id number] [place], [place] LTER PATIENT MEDICAID MEDICAID [facility] [place] Mar 11, 2017 MEDICAI D [id number] [place], [place] LTER PATIENT Selected Encounter This section includes the information on record at [place] for the Encounter. Date/Time Encounter Type Encounter Description Reason Pro vider Source Mar 22, 2023 12:50 PM Outpatient Encounter PRIMARY CARE/MEDICINE I[facility] Encounter Template Text not used by [facility] Lab Results: +/- 30 days of the encounter This section includes the Chemistry and Hematology Lab Results on record with [place] for the patient. Radiology Reports and Pathology Reports are provided separately, in subsequent sections. Lab Results This section contains the Chemistry/Hematology Results that were resulted 30 days before or 30 daysafter the date of the Encounter. Date/Time Source Result Type Result - Unit Interpretation Reference Range Comment Mar 25, 2023 02:41 PM [facility] BASIC METABOLIC PANEL (fasting) Specime n Type: SERUM No comment entered. Ordering Provider: JESI SINGH Report Released Date/Time: Mar 07, 2023 02:09 PM Reporting Lab: [address] [address] Performing Lab: [address] [address] UREA NITROGEN 9 mg/dL 7-25 GLUCOSE 96 mg/dL 65-100 SODIUM 139 mmol/L 135-145 POTASSIUM 4.0 mmol/L 3.5-5.0 CHLORIDE 101 mmol/L 100-110 CO2 30 meq/L 20-30 CREATININE, Serum 0.85 mg/dL 0.50-1.40 eGFR(CKD-EPI 2020) >90 mL/min >60 Mar 25, 2023 02:41 PM [facility] LIPID PANEL FASTING Specimen Type: SERUM No comment entered. Ordering Provider: JESI SINGH Report Released Date/Time: Mar 07, 2023 02:09 PM Reporting Lab: [address] [address] Performing Lab: [address] [address] CHOLESTEROL 182 mg/dL TRIGLYCERIDE 66 mg/dL 0-150 LDL calculated 104 mg/dL 0-129 CHOL/HDL 2.8 HDL CHOLESTEROL 65 mg/dL H 40-60 Mar 25, 2023 02:41 PM [facility] HEMOGLOBIN A1C PANEL Specimen Type: BLOOD Comment: Values obtained from A1C measurements can vary. For atypical A1C assays, a reported value of 7.0 could actually be between 6.72 and 7.28 if measured by a reference method. A reported value of 9.0 could actually be between 8.73 and 9.27. Ref: http://www.ngs p.org/CAPdata. asp Ordering Provider: JESI SINGH Report Released Date/Time: Mar 07, 2023 02:09 PM Reporting Lab: [address] [place] [address] [facility]forming [facility]: [facility] [address] [address] HEMOGLOBIN A1C 5.1 4.0-5.6 Mar 25, 2023 02:41 PM P[facility] LIVER FUNCTION Specimen Type: SERUM No comment entered. Ordering Provider: JESI SINGH Report Released Date/Time: Mar 07, 2023 02:09 PM Reporting Lab: [address] [address] Performing Lab: [address] [address] PROTEIN,TOTAL 7.0 g/dL 6.0-8.3 ALBUMIN 3.4 g/dL L 3.5-5.0 ALKALINE PHOSPHATASE 64 U/L 40-150 AST 21 U/L 5-34 ALT 15 U/L BILIRUBIN, TOTAL 0.4 mg/dL 0.2-1.2 Mar 25, 2023 02:41 PM P[facility]EER TSH Specimen Type: SERUM No comment entered. Ordering Provider: JESI SINGH Report Released Date/Time: Mar 07, 2023 02:09 PM Reporting Lab: [address] [address] Performing Lab: [address] [address] TSH 0.57 u[IU]/mL 0.35-5.00 Mar 25, 2023 02:41 PM P[facility]ER CBC AND DIFF (AUTO) Specimen Type: BLOOD No comment entered. Ordering Provider: JESI SINGH Report Released Date/Time: Mar 07, 2023 02:09 PM Reporting Lab: [address] [address] Performing Lab: [address] [address] WBC 9.70 10*3/uL 4.50-11.00 RBC 5.52 10*6/uL 4.23-5.66 HGB 15.1 g/dL 12.8-17 HCT 45.9 39.2-50.4 MCV 83.2 fL 82-99 MCHC 32.9 g/dL 30.8-35.1 PLT 234 10*3/uL 140-360 RDW-CV 15.8 12.0-16.0 [place], Abs 0.56 10*3/uL 0.30-1.10 MCH 27.4 pg 26.2-32.6 Neut % 66.2 43.7-75.8 Lymph % 26.7 14.0-42.3 [place] % 5.8 5.1-13.7 Eos % 0.5 0.4-6.8 Baso % 0.5 0.1-2.0 Neut, Abs 6.42 10*3/uL 2.20-7.60 Lymph, Abs 2.59 10*3/uL 1.00-3.20 Eos, Abs 0.05 10*3/uL 0.03-0.44 Baso, Abs 0.05 10*3/uL 0.01-0.13 Immature Gran % 0.3 0.0-0.7 Immature Gran, Abs 0.03 10*3/uL 0.00-0.06 Mar 25, 2023 02:41 PM P[facility]EER URINALYSIS Specimen Type: URINE Comment: *MICROSCOPIC AUTOMATED, URINE Not Performed: Mar 25, 2023@16:10 by 3 *INTERNET MARKETING COORDINATOR Reason: ORDERED IN ERROR If Glucose = >500 and Ketones are positive, please alert the Physician. Ordering Provider: JESI SINGH Report Released Date/Time: Mar 07, 2023 02:09 PM Reporting Lab: [address] [address] Performing Lab: [address] [address] UA COLOR Colorless Yellow UA APPEARANCE Clear Clear UA GLUCOSE NEGATIVE mg/dL Negative UA KETONES NEGATIVE mg/dL Negative UA BLOOD NEGATIVE mg/dL Negative UA PROTEIN NEGATIVE mg/dL Negative UA NITRITE NEGATIVE mg/dL Negative UA BILIRUBIN NEGATIVE mg/dL Negative UA SPECIFIC GRAVITY 1.013 L 1.016-1.022 UA pH 7.0 5.0-9.0 UA UROBILINOGEN <2.0 mg/dL <2.0 UA LEUKOCYTE NEGATIVE Negative Mar 25, 2023 02:41 PM P[facility]EER PSA Specimen Type: SERUM No comment entered. Ordering Provider: JESI SINGH Report Released Date/Time: Mar 26, 2023 08:20 AM Reporting Lab: [facility] [place] [facility] [address] [facility] [address] Performing Lab: [facility] [place] [facility] [address] [facility] [address] PSA 0.77 ng/mL 0.00-4.00 Social History: Smoking Status (Most current) and Tobacco Use (All prior to encounter date) This section includes the most current, and the historical, smoking and tobacco- related health factors from the [place] facility where the Encounter took place. Current Smoking Status This section includes the most current smoking, or tobacco-related health factor, from the [place] facility where the Encounter took place. Date/Time Current Smoking Status Comment [facility] Apr 17, 2021 09:00 AM [facility]-TOBACCO USE [place] 30 MIN OF WAKEUP [facility] Tobacco Use History This section includes a history of the smoking, or tobacco-related health factors, that were collected on or before the date of the Encounter. The data comes from the [facility] facility where the Encounter took place. Date/Time Smoking Status/Tobac co Use Comment Facility Apr 17, 2021 09:00 AM VA-TOBACCO USE ADVICE [facility] [place] [facility] Apr 17, 2021 09:00 AM VA-TOBACCO USE INVENTORY CONTROL/SHIPPING RECEIVING NO [facility] [place] [facility] Apr 17, 2021 09:00 AM VA-TOBACCO USE MED NO [facility] [place] [facility] Apr 17, 2021 09:00 AM VA-TOBACCO USE WI 30 MIN OF WAKEUP [facility] [place] [facility] Apr 17, 2021 09:00 AM VA-TOBACCO USER EVERY DAY [facility] [place] [facility] May 11, 2020 10:54 AM VA-TOBACCO DOESNT USE WI 30 MIN WAKEUP [facility] [place] [facility] May 11, 2020 10:54 AM VA-TOBACCO USE > 15 LESS THAN 30 YEARS [facility] [place] [facility] May 11, 2020 10:54 AM VA-TOBACCO USE ADVICE [facility] [place] [facility] May 11, 2020 10:54 AM VA-TOBACCO USE INVENTORY CONTROL/SHIPPING RECEIVING YES Precioust would like Patche to help him quit. [facility] May 11, 2020 10:54 AM VA-TOBACCO USE MED NOTIFY PROVIDER Wants Patches. [facility] [place] [facility] May 11, 2020 10:54 AM VA-TOBACCO USER EVERY DAY [facility] Encounter Notes: All associated encounter notes This section contains the clinical notes associated to the Encounter. Date/Time Encounter Note(s) Provider Source Mar 22, 2023 01:38 PM ADDENDUM: LOCAL TITLE: Addendum STANDARD TITLE: ADDENDUM DATE OF NOTE: MAR 22, 2023@13:38:48 ENTRY DATE: MAR 22, 2023@13:38:49 AUTHOR: STACY ATKINSON EXP COSIGNER: URGENCY: STATUS: COMPLETED Will include PCP in above reported issue. /damien/ STACY ATKINSON LPN LICENSED PRACTICAL NURSE Signed: 03/22/2023 13:39 Receipt Acknowledged By: 03/24/2023 12:59 /es/ Jesi Singh M.D. STAFF PHYSICIAN --- Original Document --- 03/22/23 WALK-IN NOTE PRIMARY CARE (T): <====Click to Start Advanced [facility] Support [place] presents to the Primary Care clinic with the following request: [ ]Medication Renewal/Refill [ ]Consultation with Team RN [ ]Symptoms [ X ]Other The states they are: [ X ]Waiting [ ]Not Waiting No Walk in visit scheduled with PACT Nurse [ X ] At this encounter the Flaxton's demographics were verified. [ X ] At this encounter the Flaxton's Insurance information was verified. [ X ] At this encounter the below scheduled visits for the Fla[place] were discussed and appointment reminder card was offered. Future appointments: No data available Flaxton is requesting out of work note for March 16, and today 03/22 due to change in medication. Would like to speak to the nurse as well. /damien/ BELTRAN DENNY Signed: 03/22/2023 12:52 Receipt Acknowledged By: 03/22/2023 13:42 /damien/ STACY ATKINSON LPN LICENSED PRACTICAL NURSE * AWAITING SIGNATURE * MARY ATWOOD 03/22/2023 ADDENDUM STATUS: COMPLETED is stating the medication for his stomach New Order entered by JESI SINGH (PHYSICIAN) Order Text: LACTOBACILLUS ACIDOPHILUS CAP,ORAL LACTOBACILLUS ACIDOPHILUS CAP TAKE 1 CAPSULE BY MOUTH ONCE DAILY Quantity: 100 Refills: 0 is giving him upset stomach, [place], burning. He feels funny.Stating he feels alost like he has the flu. /damien/ BELTRAN DENNY Signed: 03/22/2023 13:00 Receipt Acknowledged By: 03/22/2023 13:38 /damien/ STACY ATKINSON LPN LICENSED PRACTICAL NURSE * AWAITING SIGNATURE * MARY ATWOOD 03/22/2023 ADDENDUM STATUS: COMPLETED has not been seen by PCP since 10/2021. Unable to do work note as Flaxton has not been seen in clinic. /damien/ MARY ATWOOD RN REGISTERED NURSE Signed: 03/22/2023 13:00 03/24/2023 ADDENDUM STATUS: UNSIGNED You may not VIEW this UNSIGNED Addendum. STACY ATKINSON PIONEER Mar 22, 2023 12:57 PM ADDENDUM: LOCAL TITLE: Addendum STANDARD TITLE: ADDENDUM DATE OF NOTE: MAR 22, 2023@12:57:32 ENTRY DATE: MAR 22, 2023@12:57:33 AUTHOR: BELTRAN RAMIREZ EXP COSIGNER: URGENCY: STATUS: COMPLETED [place] is stating the medication for his stomach New Order entered by JESI SINGH (PHYSICIAN) Order Text: LACTOBACILLUS ACIDOPHILUS CAP,ORAL LACTOBACILLUS ACIDOPHILUS CAP TAKE 1 CAPSULE BY MOUTH ONCE DAILY Quantity: 100 Refills: 0 is giving him upset stomach, [place], burning. He feels funny.Stating he feels alost like he has the flu. /damien/ BELTRAN DENNY Signed: 03/22/2023 13:00 Receipt Acknowledged By: 03/22/2023 13:38 /james ATKINSON LPN LICENSED PRACTICAL NURSE 03/25/2023 08:46 /james ATWOOD RN REGISTERED NURSE --- Original Document --- 03/22/23 WALK-IN NOTE PRIMARY CARE (T): <====Click to Start Advanced Medical Support [place] presents to the Primary Care clinic with the following request: [ ]Medication Renewal/Refill [ ]Consultation with Team RN [ ]Symptoms [ X ]Other The [place] states they are: [ X ]Waiting [ ]Not Waiting No Walk in visit scheduled with PACT Nurse [ X ] At this encounter the Flaxton's demographics were verified. [ X ] At this encounter the Flaxton's Insurance information was verified. [ X ] At this encounter the below scheduled visits for the [place] were discussed and appointment reminder card was offered. Future appointments: No data available is requesting out of work note for March 16, and today 03/22 due to change in medication. Would like to speak to the nurse as well. /james DENNY Signed: 03/22/2023 12:52 Receipt Acknowledged By: 03/22/2023 13:42 /james ATKINSON LPN LICENSED PRACTICAL NURSE 03/25/2023 08:46 /james ATWOOD RN REGISTERED NURSE 03/22/2023 ADDENDUM STATUS: COMPLETED has not been seen by PCP since 10/2021. Unable to do work note as has not been seen in clinic. /james ATWOOD RN REGISTERED NURSE Signed: 03/22/2023 13:00 03/22/2023 ADDENDUM STATUS: COMPLETED Will include PCP in above reported issue. /james ATKINSON LPN LICENSED PRACTICAL NURSE Signed: 03/22/2023 13:39 Receipt Acknowledged By: 03/24/2023 12:59 /damien/ Jesi Singh M.D. STAFF PHYSICIAN 03/24/2023 ADDENDUM STATUS: COMPLETED pt can go to sick call of [place] contracted urgent care /damien/ Jesi Singh M.D. STAFF PHYSICIAN Signed: 03/24/2023 12:59 03/25/2023 ADDENDUM STATUS: COMPLETED Spoke with on Saturday afternoon when he was at the clinic. Flaxton states he has been feeling unwell since starting medication. States he did not request this medication or ever taken it in the past. Asked Flaxton if he had stopped medication since he did not feel well, Flaxton stated no because it worked. Informed him PCP prescribed this back in 2021 when the Miralax was also prescribed to help w/stomach issues. stated he does not remember gettin git or taking it. Flaxton will stop medication during the weekend and try eating foods that have the same probiotics like prescription to see if that will help w/stomach issues. If the Flaxton is not feeling well by Saturday morning when he come in to do bloodwrok, he will come to [place]. /damien/ MARY ATWOOD RN REGISTERED NURSE Signed: 03/25/2023 08:45 BELTRAN RAMIREZ Mar 22, 2023 12:50 PM PRIMARY CARE NOTE: LOCAL TITLE: WALK-IN NOTE PRIMARY CARE (T) STANDARD TITLE: PRIMARY CARE NOTE DATE OF NOTE: MAR 22, 2023@12:50 ENTRY DATE: MAR 22, 2023@12:50:22 AUTHOR: BELTRAN RAMIREZ EXP COSIGNER: URGENCY: STATUS: COMPLETED WALK-IN NOTE PRIMARY CARE (T) Has ADDENDA <====Click to Start Advanced Medical Support [place] presents to the Primary Care clinic with the following request: [ ]Medication Renewal/Refill [ ]Consultation with Team RN [ ]Symptoms [ X ]Other The [place]xton states they are: [ X ]Waiting [ ]Not Waiting No Walk in visit scheduled with PACT Nurse [ X ] At this encounter the Flaxton's demographics were verified. [ X ] At this encounter the Flaxton's Insurance information was verified. [ X ] At this encounter the below scheduled visits for the were discussed and appointment reminder card was offered. Future appointments: No data available is requesting out of work note for March 16, and today 03/22 due to change in medication. Would like to speak to the nurse as well. /damien/ BELTRAN DENNY Signed: 03/22/2023 12:52 Receipt Acknowledged By: 03/22/2023 13:42 /damien/ STACY ATKINSON LPN LICENSED PRACTICAL NURSE 03/25/2023 08:46 /damien/ MARY ATWOOD RN REGISTERED NURSE 03/22/2023 ADDENDUM STATUS: COMPLETED [place] is stating the medication for his stomach New Order entered by JESI SINGH (PHYSICIAN) Order Text: LACTOBACILLUS ACIDOPHILUS CAP,ORAL LACTOBACILLUS ACIDOPHILUS CAP TAKE 1 CAPSULE BY MOUTH ONCE DAILY Quantity: 100 Refills: 0 is giving him upset stomach, [place], burning. He feels funny.Stating he feels alost like he has the flu. /damien/ BELTRAN DENNY Signed: 03/22/2023 13:00 Receipt Acknowledged By: 03/22/2023 13:38 /damien/ STACY ATKINSON LPN LICENSED PRACTICAL NURSE 03/25/2023 08:46 /damien/ MARY ATWOOD RN REGISTERED NURSE 03/22/2023 ADDENDUM STATUS: COMPLETED has not been seen by PCP since 10/2021. Unable to do work note as [place] has not been seen in clinic. /damien/ MARY ATWOOD RN REGISTERED NURSE Signed: 03/22/2023 13:00 03/22/2023 ADDENDUM STATUS: COMPLETED Will include PCP in above reported issue. /james ATKINSON LPN LICENSED PRACTICAL NURSE Signed: 03/22/2023 13:39 Receipt Acknowledged By: 03/24/2023 12:59 /damien/ Jesi Singh M.D. STAFF PHYSICIAN 03/24/2023 ADDENDUM STATUS: COMPLETED pt can go to sick call of [place] contracted urgent care /james Singh M.D. STAFF PHYSICIAN Signed: 03/24/2023 12:59 03/25/2023 ADDENDUM STATUS: COMPLETED Spoke with on Saturday afternoon when he was at the clinic. [place] states he has been feeling unwell since starting medication. States he did not request this medication or ever taken it in the past. Asked Flaxton if he had stopped medication since he did not feel well, Flaxton stated no because it worked. Informed him PCP prescribed this back in 2021 when the Miralax was also prescribed to help w/stomach issues. stated he does not remember gettin git or taking it. will stop medication during the weekend and try eating foods that have the same probiotics like prescription to see if that will help w/stomach issues. If the Flaxton is not feeling well by Saturday morning when he come in to do bloodwrok, he will come to [place]. /damien/ MARY ATWOOD RN REGISTERED NURSE Signed: 03/25/2023 08:45 BELTRAN RAMIREZ PIONEER
--- OUTSIDE RECORDS SUMMARY | 2024-03-20 08:21 | XMS_ITS | Continuity of Care Document ---
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 It does not include entries that were removed or entered in error. Problem Status Onset Date Problem Type Date of Resolution Comments Source AF- Atrial Fibrillation (SCT 69349037) Active Condition Dec 22, 2018 Entered By: SOLO SINGH IE Comment: ablation 12/02/18 [facility] Alcohol dependence (SNOMED CT 67822680) Active Condition [facility] CAD - Coronary Artery Disease (SCT 09801262) Active Condition Dec 22, 2018 Entered By: SOLO SINGH IE Comment: cath 09/19 showed 30% mid lad and 60% D2 w/DONNELL 3 flow [facility] CALCULUS OF KIDNEY Active Condition [facility] Cervical Radiculopathy (ICD-9-CM 723.4) Active Condition Apr 11, 2010 Entered By: SOLO SINGH IE Comment: s/p C5-6 ACDF w/allograft [facility] Cervical spondylosis with myelopathy (ICD-9-CM 721.1) Active Condition [facility] Constipation (SCT 25828916) Active Condition [facility] Depression (SCT 52680026) Active Condition [facility] Gastroesophageal Reflux Disorder * (ICD-9-CM 530.81) Active Condition [facility] Housing adequate Active Condition [facility] Housing problem Active [facility] Housing problem solved Active Condition [facility] HTN - Hypertension (SCT 74905188) [facility] (SCT 51144252) Active Condition [facility] Hypertension * (ICD-9-CM 401.9) Active Condition [facility] Inguinal hernia Active Condition July 14, 2020 Entered By: SOLO SINGH IE Comment: left s/o repair 07/2020 [facility] Osteoarthritis * (ICD-9-CM 715.90) Active Condition [facility] Pain in joint involving hand (ICD-9-CM 719.44) Active Condition [facility] Substance abuse (SNOMED CT 18175673) Active Condition [facility] Tobacco Use Disorder * (ICD-9-CM 305.1) Active Condition [facility] Diagnosis: ICD-10-CM I10 Essential (primary) hypertension Active Diagnosis [facility] Medications Combined list of outpatient medications from Department of Defense and Veterans Affairs facilities.Medications provided include 1) outpatient medications from the last 15 months, and 2) patient-reported medications. Medication Details Route Status Patient Instructions Prescription Expires Prescription Number Last Dispense Date Ordering Provider Order Date Order Qty Source ASPIRIN 81MG TAB,EC TAKE ONE TABLET BY MOUTH ONCE DAILY PREVENTI VE TO PREVENT STROKE/H EART ATTACK ORAL ACTIVE 11/22/2024 [id number] 4 RYLEYMAREN YAN F 2023 90 [facility] ASPIRIN 81MG TAB,EC TAKE ONE TABLET BY MOUTH ONCE DAILY PREVENTI VE TO PREVENT STROKE/H EART ATTACK ORAL DISCONT INUED 01/28/2024 [id number] 4 MAREN HEDRICK EN F 2023 120 [facility] ASPIRIN 81MG TAB,EC TAKE ONE TABLET BY MOUTH ONCE DAILY TO PREVENT STROKE/H EART ATTACK ORAL 06/05/2023 [id number] 4 KATHY SINGH 2023 120 [facility] ASPIRIN 81MG TAB,EC TAKE ONE TABLET BY MOUTH DAILY ORAL ACTIVE KATHY SINGH 2009 [facility] ASPIRIN 81MG TAB,EC TAKE ONE TABLET BY MOUTH ONCE DAILY ORAL ACTIVE BRIAN,RE ROVERTO N 2009 [place] [facility] BISACODYL TAB,EC TAKE BY MOUTH ONCE DAILY ORAL ACTIVE KATHY SINGH 2021 [facility] DOCUSATE NA CAP,ORAL TAKE BY MOUTH ONCE DAILY ORAL ACTIVE KATHY SINGH 2021 [facility] FISH OIL 1000MG CAP,ORAL TAKE 1 CAPSULE BY MOUTH ONCE DAILY ORAL ACTIVE BRIAN,RE ROVERTO N 2009 [facility] GABAPENTIN 600MG TAB TAKE ONE TABLET BY MOUTH THREE TIMES A DAY ORAL ACTIVE BRIAN,RE ROVERTO N 2009 [facility] HYDROCHLORO THIAZIDE 12.5MG/REGINA NOPRIL 20MG TAB TAKE ONE TABLET BY MOUTH ONCE DAILY ORAL ACTIVE BRIAN,RE ROVERTO N 2009 [facility] HYDROCHLORO THIAZIDE 25MG TAB TAKE ONE TABLET BY MOUTH ONCE DAILY FOR HIGH BLOOD PRESSURE ORAL 02/20/2024 [id number] 4 MAREN HEDRICK RMMYKEL F 2023 90 [place] HYDROCHLORO THIAZIDE 25MG/TRIAMT ERENE 37.5MG TAB TAKE 1 TABLET BY MOUTH ONCE DAILY FOR HIGH BLOOD PRESSURE ORAL 04/06/2023 [id number] 4 KATHY SINGH 2023 30 [place] LACTOBACILL US ACIDOPHILUS CAP TAKE 1 CAPSULE BY MOUTH ONCE DAILY ORAL 06/05/2023 [id number] KATHY SINGH 2023 100 [place] LISINOPRIL 5MG TAB TAKE ONE TABLET BY MOUTH ONCE DAILY TO CONTROL BLOOD PRESSURE ORAL 02/20/2024 [id number] 4 MAREN HEDRICK EN F 2023 90 [place] LISINOPRIL 5MG TAB TAKE ONE TABLET BY MOUTH ONCE DAILY TO CONTROL BLOOD PRESSURE ORAL 04/06/2023 [id number] 4 KATHY SINGH 2023 30 [place] NICOTINE 14MG/24HRS PATCH APPLY 1 PATCH TO SKIN ONCE DAILY FOR SMOKING CESSATIO N (REMOVE OLD PATCH BEFORE APPLYING NEW PATCH) TRANSD ERMAL ACTIVE 11/22/2024 [id number] 4 MAREN HEDRICK RMYMKEL F 2023 42 [place] POLYETHYLEN E GLYCOL 3350 PWDR,ORAL TAKE 17 GRAMS(FI LL CAP TO 17GM LINE) BY MOUTH ONCE DAILY FOR CONSTIPA TION [MIX WITH 4 TO 8OZ. OF BEVERAGE ] ORAL 04/06/2023 [id number] 4 KATHY SINGH 2023 238 [place] SENNOSIDES 8.6MG TAB TAKE ONE TABLET BY MOUTH ONCE DAILY NEEDED FOR CONSTIPA TION ORAL 02/20/2024 [id number] 4 MAREN HEDRICK RMEN F 2023 100 [place] SILDENAFIL CITRATE 100MG TAB TAKE ONE TABLET BY MOUTH ONCE DAILY NEEDED TAKE 1 HOUR PRIOR TO SEXUAL ACTIVITY ORAL 04/06/2023 [id number] 4 KATHY SINGH 2023 6 [place] Allergies, Adverse Reactions, Alerts Combined list of allergies from Department of Defense and Veterans Affairs facilities. It does not include entries that were removed or entered in error. Substance Category Reaction Severity Reaction type Status Date Reported Comments Source ENVIRONMENTAL ALLERGENS Propensity to adverse reaction (finding) Nasal mucosa dry, Sneezing active 0 [facility] ENVIRONMENTAL ALLERGENS Propensity to adverse reaction (finding) active 0 [facility] Immunizations Combined list of available immunizations from the Department of Defense and Veterans Affairs facilities. Immunization Series Date Given Administered By Site Reaction Lot Number CVX Code Drug Runstitching Machine Operator Status Comments Source INFLUENZA, SPLIT VIRUS, TRIVALENT, PF 2023 [place]OH[place]ON RIGHT [place] ID [id number] 140 complet ed [facility] ZOSTER RECOMBINANT 1 2021 187 complet ed [facility] TDAP 2021 115 complet ed [facility] INFLUENZA, INJECTABLE, QUADRIVALENT, PRESERVATIVE FREE 2021 150 complet ed [facility] COVID-19 (PFIZER), MRNA, LNP-S, PF, 30 MCG/0.3 ML DOSE 2 2020 208 complet ed [facility] COVID-19 (PFIZER), MRNA, LNP-S, PF, 30 MCG/0.3 ML DOSE 1 2020 208 complet ed [facility] INFLUENZA, SEASONAL, INJECTABLE 2018 141 complet ed in [place] [facility] INFLUENZA, SEASONAL, INJECTABLE 2018 141 complet ed [facility] FLU,3 YRS (HISTORICAL) 2012 88 complet ed Site: Right Deltoid [place] FLU,3 YRS (HISTORICAL) 2011 88 complet ed Site: Left Deltoid [place] PNEUMOCOCCAL POLYSACCHARID E PPV23 2010 33 complet ed [place] PNEUMOCOCCAL, UNSPECIFIED FORMULATION 2010 109 complet ed [place] FLU,3 YRS (HISTORICAL) 2009 88 complet ed Site: Left Deltoid, Site: Right Deltoid [facility] FLU,3 YRS (HISTORICAL) 2009 88 complet ed [facility] FLU,3 YRS (HISTORICAL) 2006 88 complet ed Site: Left Deltoid [place] TD(ADULT) UNSPECIFIED FORMULATION 2005 MARTIR DILLON 139 complet ed [facility] FLU,3 YRS (HISTORICAL) 2002 PRASANNA TAN A 88 complet ed [place] TD(ADULT) UNSPECIFIED FORMULATION 1998 SMILEY HENDRICKS A 139 complet ed [place] Results Combined list of recent chemistry, hematology and other laboratory results from Department of Defense and Veterans Affairs, ranging from 15 months to all on record, depending upon the facility. Order Name Results Value Reference Range Date Interpretation Specimen Comments Source BASIC METABOLI C PANEL (fasting ) UREA NITROGEN [MASS/VOLU ME] IN SERUM OR PLASMA 9 mg/dL 7 - 25 03/25 Specimen Type: SERUM No comment entered. Ordering Provider: SOLO SINGH IE Report Released Date/Time: Mar 07, 2023 02:09 PM Reporting Lab: [facility] [address] [address] Performing Lab: [facility] [address] [address] [facility] BASIC METABOLI C PANEL (fasting ) GLUCOSE [MASS/VOLU ME] IN SERUM OR PLASMA 96 mg/dL 65 - 100 03/25 Specimen Type: SERUM No comment entered. Ordering Provider: SOLO SINGH IE Report Released Date/Time: Mar 07, 2023 02:09 PM Reporting Lab: [facility] [address] [address] Performing Lab: [facility] [address] [address] [place] BASIC METABOLI C PANEL (fasting ) SODIUM [MOLES/VOL UME] IN SERUM OR PLASMA 139 mmol/L 135 - 145 03/25 Specimen Type: SERUM No comment entered. Ordering Provider: SOLO SINGH IE Report Released Date/Time: Mar 07, 2023 02:09 PM Reporting Lab: [address] [address] Performing Lab: [address] [address] [place] BASIC METABOLI C PANEL (fasting ) POTASSIUM [MOLES/VOL UME] IN SERUM OR PLASMA 4.0 mmol/L 3.5 - 5.0 03/25 Specimen Type: SERUM No comment entered. Ordering Provider: SOLO SINGH IE Report Released Date/Time: Mar 07, 2023 02:09 PM Reporting Lab: [address] [address] Performing Lab: [address] [address] [place] BASIC METABOLI C PANEL (fasting ) CHLORIDE [MOLES/VOL UME] IN SERUM OR PLASMA 101 mmol/L 100 - 110 03/25 Specimen Type: SERUM No comment entered. Ordering Provider: SOLO SINGH IE Report Released Date/Time: Mar 07, 2023 02:09 PM Reporting Lab: [address] [address] Performing Lab: [address] [address] [place] BASIC METABOLI C PANEL (fasting ) CARBON DIOXIDE, TOTAL [MOLES/VOL UME] IN SERUM OR PLASMA 30 meq/L 20 - 30 03/25 Specimen Type: SERUM No comment entered. Ordering Provider: SOLO SINGH IE Report Released Date/Time: Mar 07, 2023 02:09 PM Reporting Lab: [address] [place] [address] Performing Lab: [facility] [address] [address] [place] BASIC METABOLI C PANEL (fasting ) CREATININE [MASS/VOLU ME] IN SERUM OR PLASMA 0.85 mg/dL 0.50 - 1.40 03/25 Specimen Type: SERUM No comment entered. Ordering Provider: SOLO SINGH IE Report Released Date/Time: Mar 07, 2023 02:09 PM Reporting Lab: [address] [address] Performing Lab: [address] [address] [place] BASIC METABOLI C PANEL (fasting ) GLOMERULAR FILTRATION RATE/1.73 SQ M.PREDICTE D [VOLUME RATE/AREA] IN SERUM, PLASMA OR BLOOD BY CREATININE -BASED FORMULA (CKD-EPI 2020) >90mL/mi n 60 03/25 Specimen Type: SERUM No comment entered. Ordering Provider: SOLO SINGH IE Report Released Date/Time: Mar 07, 2023 02:09 PM Reporting Lab: [address] [address] Performing Lab: [address] [address] [place] LIPID PANEL FASTING CHOLESTERO L [MASS/VOLU ME] IN SERUM OR PLASMA 182 mg/dL 03/25 Specimen Type: SERUM No comment entered. Ordering Provider: SOLO SINGH IE Report Released Date/Time: Mar 07, 2023 02:09 PM Reporting Lab: [address] [address] Performing Lab: [address] [address] [place] LIPID PANEL FASTING TRIGLYCERI DE [MASS/VOLU ME] IN SERUM OR PLASMA 66 mg/dL 0 - 150 03/25 Specimen Type: SERUM No comment entered. Ordering Provider: SOLO SINGH IE Report Released Date/Time: Mar 07, 2023 02:09 PM Reporting Lab: [facility] [address] [address] Performing Lab: [facility] [address] [address] [place] LIPID PANEL FASTING CHOLESTERO L IN LDL [MASS/VOLU ME] IN SERUM OR PLASMA BY CALCULATIO N 104 mg/dL 0 - 129 03/25 Specimen Type: SERUM No comment entered. Ordering Provider: SOLO SINGH IE Report Released Date/Time: Mar 07, 2023 02:09 PM Reporting Lab: [facility] [address] [address] Performing Lab: [facility] [address] [address] [place] LIPID PANEL FASTING CHOLESTERO L.TOTAL/CH OLESTEROL IN HDL [MASS RATIO] IN SERUM OR PLASMA 2.8 03/25 Specimen Type: SERUM No comment entered. Ordering Provider: SOLO SINGH IE Report Released Date/Time: Mar 07, 2023 02:09 PM Reporting Lab: [address] [address] Performing Lab: [facility] [address] [address] [place] LIPID PANEL FASTING CHOLESTERO L IN HDL [MASS/VOLU ME] IN SERUM OR PLASMA 65 mg/dL 40 - 60 03/25 H Specimen Type: SERUM No comment entered. Ordering Provider: SOLO SINGH IE Report Released Date/Time: Mar 07, 2023 02:09 PM Reporting Lab: [facility] [address] [address] Performing Lab: [facility] [address] [address] [place] HEMOGLOB IN A1C PANEL HEMOGLOBIN A1C/HEMOGL OBIN.TOTAL IN BLOOD BY HPLC 5.1 4.0 - 5.6 03/25 Specimen Type: BLOOD Comment: Values obtained from A1C measurement s can vary. For atypical A1C assays, a reported value of 7.0 could actually be between 6.72 and 7.28 if measured by a reference method. A reported value of 9.0 could actually be between 8.73 and 9.27. Ref: [email or web address] Pdata.asp Ordering Provider: SOLO SINGH Report Released Date/Time: Mar 07, 2023 02:09 PM Reporting Lab: [address] [address] Performing Lab: [address] [address] [place] [facility] PROTEIN [MASS/VOLU ME] IN SERUM OR PLASMA 7.0 g/dL 6.0 - 8.3 03/25 Specimen Type: SERUM No comment entered. Ordering Provider: SOLO SINGH IE Report Released Date/Time: Mar 07, 2023 02:09 PM Reporting Lab: [address] [address] Performing Lab: [address] [address] [place] [facility] ALBUMIN [MASS/VOLU ME] IN SERUM OR PLASMA 3.4 g/dL 3.5 - 5.0 03/25 L Specimen Type: SERUM No comment entered. Ordering Provider: SOLO SINGH IE Report Released Date/Time: Mar 07, 2023 02:09 PM Reporting Lab: [address] [address] Performing Lab: [address] [address] [place] [facility] ALKALINE PHOSPHATAS E [ENZYMATIC ACTIVITY/V OLUME] IN SERUM OR PLASMA 64 U/L 40 - 150 03/25 Specimen Type: SERUM No comment entered. Ordering Provider: SOLO SINGH IE Report Released Date/Time: Mar 07, 2023 02:09 PM Reporting Lab: [address] [address] Performing Lab: [address] [address] [place] LIVER FUNCTION ASPARTATE AMINOTRANS FERASE [ENZYMATIC ACTIVITY/V OLUME] IN SERUM OR PLASMA 21 U/L 5 - 34 03/25 Specimen Type: SERUM No comment entered. Ordering Provider: SOLO SINGH IE Report Released Date/Time: Mar 07, 2023 02:09 PM Reporting Lab: [facility] [address] [address] Performing Lab: [address] [address] [place] LIVER FUNCTION ALANINE AMINOTRANS FERASE [ENZYMATIC ACTIVITY/V OLUME] IN SERUM OR PLASMA 15 U/L 03/25 Specimen Type: SERUM No comment entered. Ordering Provider: SOLO SINGH IE Report Released Date/Time: Mar 07, 2023 02:09 PM Reporting Lab: [address] [address] Performing Lab: [address] [address] [facility] BILIRUBIN. TOTAL [MASS/VOLU ME] IN SERUM OR PLASMA 0.4 mg/dL 0.2 - 1.2 03/25 Specimen Type: SERUM No comment entered. Ordering Provider: SOLO SINGH IE Report Released Date/Time: Mar 07, 2023 02:09 PM Reporting Lab: [address] [address] Performing Lab: [address] [address] [place] TSH THYROTROPI N [UNITS/VOL UME] IN SERUM OR PLASMA 0.57 u[IU]/mL 0.35 - 5.00 03/25 Specimen Type: SERUM No comment entered. Ordering Provider: SOLO SINGH IE Report Released Date/Time: Mar 07, 2023 02:09 PM Reporting Lab: [address] [address] Performing Lab: [address] [address] [place] CBC AND DIFF (AUTO) LEUKOCYTES [#/VOLUME] IN BLOOD BY AUTOMATED COUNT 9.70 10*3/uL 4.50 - 11.00 03/25 Specimen Type: BLOOD No comment entered. Ordering Provider: SOLO SINGH IE Report Released Date/Time: Mar 07, 2023 02:09 PM Reporting Lab: [address] [address] Performing Lab: [address] [address] [place] CBC AND DIFF (AUTO) ERYTHROCYT ES [#/VOLUME] IN BLOOD BY AUTOMATED COUNT 5.52 10*6/uL 4.23 - 5.66 03/25 Specimen Type: BLOOD No comment entered. Ordering Provider: SOLO SINGH IE Report Released Date/Time: Mar 07, 2023 02:09 PM Reporting Lab: [address] [address] Performing Lab: [address] [address] [place] CBC AND DIFF (AUTO) HEMOGLOBIN [MASS/VOLU ME] IN BLOOD 15.1 g/dL 12.8 - 17 03/25 Specimen Type: BLOOD No comment entered. Ordering Provider: SOLO SINGH IE Report Released Date/Time: Mar 07, 2023 02:09 PM Reporting Lab: [address] [address] Performing Lab: [address] [address] [place] CBC AND DIFF (AUTO) HEMATOCRIT [VOLUME FRACTION] OF BLOOD BY AUTOMATED COUNT 45.9 39.2 - 50.4 03/25 Specimen Type: BLOOD No comment entered. Ordering Provider: SOLO SINGH IE Report Released Date/Time: Mar 07, 2023 02:09 PM Reporting Lab: [address] [address] Performing Lab: [address] [address] [place] CBC AND DIFF (AUTO) MCV [ENTITIC VOLUME] BY AUTOMATED COUNT 83.2 fL 82 - 99 03/25 Specimen Type: BLOOD No comment entered. Ordering Provider: SOLO SINGH IE Report Released Date/Time: Mar 07, 2023 02:09 PM Reporting Lab: [address] [address] Performing Lab: [address] [address] [place] CBC AND DIFF (AUTO) MCHC [MASS/VOLU ME] BY AUTOMATED COUNT 32.9 g/dL 30.8 - 35.1 03/25 Specimen Type: BLOOD No comment entered. Ordering Provider: SOLO SINGH IE Report Released Date/Time: Mar 07, 2023 02:09 PM Reporting Lab: [address] [address] Performing Lab: [address] [address] [place] CBC AND DIFF (AUTO) PLATELETS [#/VOLUME] IN BLOOD BY AUTOMATED COUNT 234 10*3/uL 140 - 360 03/25 Specimen Type: BLOOD No comment entered. Ordering Provider: SOLO SINGH IE Report Released Date/Time: Mar 07, 2023 02:09 PM Reporting Lab: [address] [address] Performing Lab: [address] [address] [place] CBC AND DIFF (AUTO) ERYTHROCYT E DISTRIBUTI ON WIDTH [RATIO] BY AUTOMATED COUNT 15.8 12.0 - 16.0 03/25 Specimen Type: BLOOD No comment entered. Ordering Provider: SOLO SINGH IE Report Released Date/Time: Mar 07, 2023 02:09 PM Reporting Lab: [address] [address] Performing Lab: [address] [address] [place] CBC AND DIFF (AUTO) MONOCYTES [#/VOLUME] IN BLOOD BY AUTOMATED COUNT 0.56 10*3/uL 0.30 - 1.10 03/25 Specimen Type: BLOOD No comment entered. Ordering Provider: SOLO SINGH IE Report Released Date/Time: Mar 07, 2023 02:09 PM Reporting Lab: [facility] [address] [address] Performing Lab: [facility] [place] [address] [address] [place] CBC AND DIFF (AUTO) MCH [ENTITIC MASS] BY AUTOMATED COUNT 27.4 pg 26.2 - 32.6 03/25 Specimen Type: BLOOD No comment entered. Ordering Provider: SOLO SINGH IE Report Released Date/Time: Mar 07, 2023 02:09 PM Reporting Lab: [facility] [address] [address] Performing Lab: [facility] [address] [place] CBC AND DIFF (AUTO) NEUTROPHIL S/100 LEUKOCYTES IN BLOOD BY AUTOMATED COUNT 66.2 43.7 - 75.8 03/25 Specimen Type: BLOOD No comment entered. Ordering Provider: SOLO SINGH IE Report Released Date/Time: Mar 07, 2023 02:09 PM Reporting Lab: [facility] [address] [address] Performing Lab: [facility] [address] [place] CBC AND DIFF (AUTO) LYMPHOCYTE S/100 LEUKOCYTES IN BLOOD BY AUTOMATED COUNT 26.7 14.0 - 42.3 03/25 Specimen Type: BLOOD No comment entered. Ordering Provider: SOLO SINGH IE Report Released Date/Time: Mar 07, 2023 02:09 PM Reporting Lab: [facility] [place] [address] [address] Performing Lab: [facility] [address] [place] CBC AND DIFF (AUTO) MONOCYTES/ 100 LEUKOCYTES IN BLOOD BY AUTOMATED COUNT 5.8 5.1 - 13.7 03/25 Specimen Type: BLOOD No comment entered. Ordering Provider: SOLO SINGH IE Report Released Date/Time: Mar 07, 2023 02:09 PM Reporting Lab: [facility] [address] [address] Performing Lab: [facility] [address] [address] [place] CBC AND DIFF (AUTO) EOSINOPHIL S/100 LEUKOCYTES IN BLOOD BY AUTOMATED COUNT 0.5 0.4 - 6.8 03/25 Specimen Type: BLOOD No comment entered. Ordering Provider: SOLO SINGH IE Report Released Date/Time: Mar 07, 2023 02:09 PM Reporting Lab: [facility] [address] [address] Performing Lab: [facility] [address] [address] [place] CBC AND DIFF (AUTO) BASOPHILS/ 100 LEUKOCYTES IN BLOOD BY AUTOMATED COUNT 0.5 0.1 - 2.0 03/25 Specimen Type: BLOOD No comment entered. Ordering Provider: SOLO SINGH IE Report Released Date/Time: Mar 07, 2023 02:09 PM Reporting Lab: [facility] [address] [address] Performing Lab: [facility] [address] [address] [place] CBC AND DIFF (AUTO) NEUTROPHIL S [#/VOLUME] IN BLOOD BY AUTOMATED COUNT 6.42 10*3/uL 2.20 - 7.60 03/25 Specimen Type: BLOOD No comment entered. Ordering Provider: SOLO SINGH IE Report Released Date/Time: Mar 07, 2023 02:09 PM Reporting Lab: [facility] [address] [address] Performing Lab: [facility] [address] [address] [place] CBC AND DIFF (AUTO) LYMPHOCYTE S [#/VOLUME] IN BLOOD BY AUTOMATED COUNT 2.59 10*3/uL 1.00 - 3.20 03/25 Specimen Type: BLOOD No comment entered. Ordering Provider: SOLO SINGH IE Report Released Date/Time: Mar 07, 2023 02:09 PM Reporting Lab: [facility] [address] [address] Performing Lab: [facility] [address] [address] [place] CBC AND DIFF (AUTO) EOSINOPHIL S [#/VOLUME] IN BLOOD BY AUTOMATED COUNT 0.05 10*3/uL 0.03 - 0.44 03/25 Specimen Type: BLOOD No comment entered. Ordering Provider: SOLO SINGH IE Report Released Date/Time: Mar 07, 2023 02:09 PM Reporting Lab: [facility] [address] [address] [facility]: [facility] [address] [address] [place] CBC AND DIFF (AUTO) BASOPHILS [#/VOLUME] IN BLOOD BY AUTOMATED COUNT 0.05 10*3/uL 0.01 - 0.13 03/25 Specimen Type: BLOOD No comment entered. Ordering Provider: SOLO SINGH IE Report Released Date/Time: Mar 07, 2023 02:09 PM Reporting Lab: [facility] [address] [address] Performing Lab: [facility] [address] [address] [place] CBC AND DIFF (AUTO) IMMATURE GRANULOCYT ES/100 LEUKOCYTES IN BLOOD BY AUTOMATED COUNT 0.3 0.0 - 0.7 03/25 Specimen Type: BLOOD No comment entered. Ordering Provider: SOLO SINGH IE Report Released Date/Time: Mar 07, 2023 02:09 PM Reporting Lab: [facility] [address] [address] Performing Lab[facility] [address] [address] [place] CBC AND DIFF (AUTO) IMMATURE GRANULOCYT ES [#/VOLUME] IN BLOOD 0.03 10*3/uL 0.00 - 0.06 03/25 Specimen Type: BLOOD No comment entered. Ordering Provider: SOLO SINGH IE Report Released Date/Time: Mar 07, 2023 02:09 PM Reporting Lab: [address] [address] Performing Lab: [address] [address] [place] URINALYS IS COLOR OF URINE Colorles s 03/25 Specimen Type: URINE Comment: *MICROSCOPI C AUTOMATED, URINE Not Performed: Mar 25, 2023@16:10 by 3 *[employer] Reason: ORDERED IN ERROR If Glucose = >500 and Ketones are positive, please alert the Physician. Ordering Provider: SOLO SINGH IE Report Released Date/Time: Mar 07, 2023 02:09 PM Reporting Lab: [address] [address] Performing Lab: [address] [address] [email or web address] UR[place] IS APPEARANCE OF URINE Clear 03/25 Specimen Type: URINE Comment: *MICROSCOPI C AUTOMATED, URINE Not Performed: Mar 25, 2023@16:10 by 3 *[employer]PERVISOR Reason: ORDERED IN ERROR If Glucose = >500 and Ketones are positive, please alert the Physician. Ordering Provider: SOLO SINGH IE Report Released Date/Time: Mar 07, 2023 02:09 PM Reporting Lab: [address] [address] Performing Lab: [address] [address] [place] URINALYS IS GLUCOSE [MASS/VOLU ME] IN URINE NEGATIVE mg/dL 03/25 Specimen Type: URINE Comment: *MICROSCOPI C AUTOMATED, URINE Not Performed: Mar 25, 2023@16:10 by 3 *[employer] SUPERVISOR Reason: ORDERED IN ERROR If Glucose = >500 and Ketones are positive, please alert the Physician. Ordering Provider: SOLO SINGH IE Report Released Date/Time: Mar 07, 2023 02:09 PM Reporting Lab: [address] [address] Performing Lab: [address] [address] [place] URINALYS IS KETONES [MASS/VOLU ME] IN URINE BY TEST STRIP NEGATIVE mg/dL 03/25 Specimen Type: URINE Comment: *MICROSCOPI C AUTOMATED, URINE Not Performed: Mar 25, 2023@16:10 by 3 *[employer] SUPERVISOR Reason: ORDERED IN ERROR If Glucose = >500 and Ketones are positive, please alert the Physician. Ordering Provider: SOLO SINGH IE Report Released Date/Time: Mar 07, 2023 02:09 PM Reporting Lab: [address] [address] Performing Lab: [address] [address] [place] URINALYS IS ERYTHROCYT ES [PRESENCE] IN URINE SEDIMENT BY LIGHT MICROSCOPY NEGATIVE mg/dL 03/25 Specimen Type: URINE Comment: *MICROSCOPI C AUTOMATED, URINE Not Performed: Mar 25, 2023@16:10 by 3 *[employer] SUPERVISOR Reason: ORDERED IN ERROR If Glucose = >500 and Ketones are positive, please alert the Physician. Ordering Provider: SOLO SINGH IE Report Released Date/Time: Mar 07, 2023 02:09 PM Reporting Lab: [address] [address] Performing Lab: [address] [address] [place] URINALYS IS PROTEIN [MASS/VOLU ME] IN URINE BY TEST STRIP NEGATIVE mg/dL 03/25 Specimen Type: URINE Comment: *MICROSCOPI C AUTOMATED, URINE Not Performed: Mar 25, 2023@16:10 by 3 *[employer] SUPERVISOR Reason: ORDERED IN ERROR If Glucose = >500 and Ketones are positive, please alert the Physician. Ordering Provider: SOLO SINGH IE Report Released Date/Time: Mar 07, 2023 02:09 PM Reporting Lab: [address] [address] Performing Lab: [facility] [place] [address] [address] [place] URINALYS IS NITRITE [PRESENCE] IN URINE NEGATIVE mg/dL 03/25 Specimen Type: URINE Comment: *MICROSCOPI C AUTOMATED, URINE Not Performed: Mar 25, 2023@16:10 by 3 *[employer] SUPERVISOR Reason: ORDERED IN ERROR If Glucose = >500 and Ketones are positive, please alert the Physician. Ordering Provider: SOLO SINGH IE Report Released Date/Time: Mar 07, 2023 02:09 PM Reporting Lab: [facility] [address] [address] [facility]forming [facility]: [facility] [address] [address] [place] IS BILIRUBIN. TOTAL [PRESENCE] IN URINE NEGATIVE mg/dL 03/25 Specimen Type: URINE Comment: *MICROSCOPI C AUTOMATED, URINE Not Performed: Mar 25, 2023@16:10 by 3 *[employer] SUPERVISOR Reason: ORDERED IN ERROR If Glucose = >500 and Ketones are positive, please alert the Physician. Ordering Provider: SOLO SINGH IE Report Released Date/Time: Mar 07, 2023 02:09 PM Reporting Lab: [facility] [address] [address] Performing [facility]: [facility] [address] [address] [place] URINALYS IS SPECIFIC GRAVITY OF URINE BY REFRACTOME TRY 1.013 1.016 - 1.022 03/25 L Specimen Type: URINE Comment: *MICROSCOPI C AUTOMATED, URINE Not Performed: Mar 25, 2023@16:10 by 3 *[employer] SUPERVISOR Reason: ORDERED IN ERROR If Glucose = >500 and Ketones are positive, please alert the Physician. Ordering Provider: SOLO ISNGH IE Report Released Date/Time: Mar 07, 2023 02:09 PM Reporting Lab: [facility] [address] Performing Lab: [facility] [address] [place]INAL[place] IS PH OF URINE BY TEST STRIP 7.0 5.0 - 9.0 03/25 Specimen Type: URINE Comment: *MICROSCOPI C AUTOMATED, URINE Not Performed: Mar 25, 2023@16:10 by 3 *[employer] SUPERVISOR Reason: ORDERED IN ERROR If Glucose = >500 and Ketones are positive, please alert the Physician. Ordering Provider: SOLO SINGH IE Report Released Date/Time: Mar 07, 2023 02:09 PM Reporting Lab: [facility] [place] [facility] [address] [address] Performing Lab: [facility] [address] [place]INALYS IS UROBILINOG EN [MASS/VOLU ME] IN URINE BY TEST STRIP <2.0mg/d L <2.0 - 2.0 03/25 Specimen Type: URINE Comment: *MICROSCOPI C AUTOMATED, URINE Not Performed: Mar 25, 2023@16:10 by 3 *[employer] SUPERVISOR Reason: ORDERED IN ERROR If Glucose = >500 and Ketones are positive, please alert the Physician. Ordering Provider: SOLO SINGH IE Report Released Date/Time: Mar 07, 2023 02:09 PM Reporting Lab: [facility] [address] Performing Lab: [facility] [address] [address] [place] URINALYS IS LEUKOCYTE ESTERASE [PRESENCE] IN URINE BY TEST STRIP NEGATIVE 03/25 Specimen Type: URINE Comment: *MICROSCOPI C AUTOMATED, URINE Not Performed: Mar 25, 2023@16:10 by 3 *[employer] SUPERVISOR Reason: ORDERED IN ERROR If Glucose = >500 and Ketones are positive, please alert the Physician. Ordering Provider: SOLO SINGH IE Report Released Date/Time: Mar 07, 2023 02:09 PM Reporting Lab: [facility] [place] [facility] [address] [address] Performing Lab: [facility] [address] [address] [place] PSA PROSTATE SPECIFIC AG [MASS/VOLU ME] IN SERUM OR PLASMA 0.77 ng/mL 0.00 - 4.00 03/25 Specimen Type: SERUM No comment entered. 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 Vital Sign Value Date Comments Source SYSTOLIC BLOOD PRESSURE 154 11/22/2023 15:12:12 [facility] DIASTOLIC BLOOD PRESSURE 90 11/22/2023 15:12:12 [facility] PULSE OXIMETRY 98 11/22/2023 15:12:12 [place] WEIGHT 154.6 11/22/2023 15:12:12 [facility] BMI 24kg/m2 11/22/2023 15:12:12 [facility] TEMPERATURE 98.3 11/22/2023 15:12:12 [facility] PULSE 86 11/22/2023 15:12:12 [facility] Encounters Combined list of: 1) Encounters from Department of Veterans Affairs facilities going back up to thelast 18 months. 2) Encounters from the Department of Defense facilities going back up to 280 months. Location Location Details Encounter Type Encounter Number Reason For Visit Attending Provider ADM Date DC Date Status Disposition Source [facility] Outpatient Encounter [id number] 03/07 [facility] [id number] 03/07 [facility] [id number] 03/22 [facility] [place] [facility] Outpatient Encounter [id number] 1.10/23 [facility] [id number] 1.10/27 [facility] [id number] 1[facility]10/27 [facility] [id number] 1.10/31 [facility] [id number] 1[facility]10/31 [facility] [id number] 1[facility]10/31 [facility] [id number] 1.11/21 [facility] [place] [facility] [place] O/P EST MOD 30 MIN [id number] Diagnos is: ICD-10- CM I10 Essenti al (primar y) hyperte nsion<b r/> STELEA,CAR MEN F 11/21 [place] [facility] [place] AD[place] [id number] 1. STELEA,CAR MEN F 11/21 [facility] En[facility] [id number] 1.01/22 [facility] Social History Combined list of available smoking, tobacco, and other social history from Department of Defense and Veterans Affairs facilities. Social History Type Response Date Comment Source Tobacco smoking status [facility] VA-TOBACCO USER EVERY DAY 11/22/2023 [facility] [place] [facility] History of tobacco use VA-TOBACCO USE WI 30 MIN OF WAKEUP 11[facility]22[facility]2023 [facility] [place] [facility] History of tobacco use [place]-TOBACCO USER EVERY DAY 04/17/2021 [facility] [place] [facility] History of tobacco use NC-TOBACCO DOESNT USE WI 30 MIN WAKEUP 05/11/2020 [facility] of tobacco use NC-TOBACCO NEVER USED 12/05/2018 [facility] History of tobacco use CURRENT SMOKER 12/30/2012 6 CIGARETTES A DAY [facility] History of tobacco use V1-PT THINKING ABOUT QUIT TOBACCO USE 05/31/2011 [facility] History of tobacco use CURRENT SMOKER 04/30/2011 States he smokes 5-6 cigarretts/day and is thinking about quitting. [facility] History of tobacco use V1-PT DECLINES TOBACCO CESSATION MEDS 04/11/2010 [facility] History of tobacco use CURRENT SMOKER 07/18/2009 [facility] History of tobacco use CURRENT SMOKER 12/26/2006 1/2 pack/day and doesn't want to quit [facility] History of tobacco use HISTORY OF SMOKING 01/21/2003 Patient states he quit smoking in 1977. [facility] History of tobacco use HISTORY OF SMOKING 08/12/2001 Stopped tobacco 5 years ago [facility] Plan of Care List of future care activities from Department of [facility] Affairs facilities. Additional future care activities may be listed in the Assessment and Plan section. Date/Time Care Activity Care Activity Detail Facili ty 04/15/2024 [facility]
--- OUTSIDE RECORDS SUMMARY | 2024-03-20 08:22 | XMS_ITS | Encounter Summary ---
Author Name [facility] [facility] [place] Address [address] [place] [address] Care Team Providers Care Supervisor Logging Name Role Phone JAMMIE MCFARLANE Primary Care [...] Cullen's Name Patient's Relationship to Policy Cullen [facility] Mar 04, 2021 MEDICAI D [id number] [place], [place] LTER PATIENT MEDICAID MEDICAID [facility] [place] Mar 11, 2017 MEDICAI D [id number] [place] LTER PATIENT Selected Encounter This section includes the information on record at [place] for the Encounter. Date/Time Encounter Type Encounter Description Reason Provider Source Nov 22, 2023 03:13 PM IMMUNIZATION ADMIN PRIMARY CARE/MEDICINE ICD-10-CM Z23. Encounter for immunization RUSH HEDRICK Encounter Template Text not used by [facility] Assessments - Encounter Diagnoses This section includes the primary and secondary diagnoses documented for the Encounter. Date/Time Primary/Secondary Diagnosis Diagnosis Name Provider Source Nov 22, 2023 03:13 PM SECONDARY Encounter for immunization ALEX,NOLA E [facility] Plan of Treatment: Future Appointments (+ 6 months) and Future Tests (+/- 45 days) The Plan of Treatment section includes future care activities for the patient from all [place] treatmentfacilities. This section includes future appointments and future orders which are active, pending or scheduled. Future Appointments This section includes appointments that were scheduled to occur 6 months from the date of the Encounter, up to a maximum of 20 appointments. The data comes from all [place] treatment [facility]. Appointment Date/Time Appointment Type Appointme nt Facility Name Dec 05, 2023 09:00 AM AMBULATORY - PSYCHIATRY [facility] Dec 19, 2023 10:00 AM AMBULATORY - PSYCHIATRY [facility] Apr 15, 2024 02:30 PM AMBULATORY - NONE [facility] Active, Pending, and Scheduled Orders This section includes a listing of several types of active, pending, and scheduled orders, including clinic medications orders, diagnostic test orders, procedure orders and consult orders; where the start date of the order is 45 days before the date of the Encounter or 45 days after the date of theEncounter. The data comes from all [facility]. Test Date/Time Test Type Test Details Facility Name Nov 22, 2023 03:53 PM Consult Order COMMUNITY CARE-COLONOSCOPY SCREENING Cons Architectural Superintendent's Choice [place] Immunizations: All administered on the encounter date This section contains immunizations associated to the Encounter. Immunization Series Date Issued Reaction Comments INFLUENZA, SPLIT VIRUS, TRIVALENT, PF Nov 21, 2 024 Social History: Smoking Status (Most current) and Tobacco Use (All prior to encounter date) This section includes the most current, and the historical, smoking and tobacco- related health factors from the [place] facility where the Encounter took place. Current Smoking Status This section includes the most current smoking, or tobacco-related health factor, from the [place] facility where the Encounter took place. Date/Time Current Smoking Status Comment Delphine leach Nov 22, 2023 03:13 PM VA-TOBACCO USER EVERY DAY [facility] Tobacco Use History This section includes a history of the smoking, or tobacco-related health factors, that were collected on or before the date of the Encounter. The data comes from the [place] facility where the Encounter took place. Date/Time Smoking Status/Tobac co Use Comment Facility Nov 22, 2023 03:13 PM VA-TOBACCO USE ADVICE [facility] [place] [facility] Nov 22, 2023 03:13 PM VA-TOBACCO USE FORESTER AIDE YES [facility] [place] [facility] Nov 22, 2023 03:13 PM VA-TOBACCO USE MED NOTIFY PROVIDER [facility] [place] [facility] Nov 22, 2023 03:13 PM VA-TOBACCO USE WI 30 MIN OF WAKEUP [facility] [place] [facility] Nov 22, 2023 03:13 PM VA-TOBACCO USER EVERY DAY [facility] [place] [facility] Apr 17, 2021 09:00 AM VA-TOBACCO USE 1 TO < 5 YEARS [facility] [place] [facility] Apr 17, 2021 09:00 AM VA-TOBACCO USE ADVICE [facility] [place] [facility] Apr 17, 2021 09:00 AM VA-TOBACCO USE FORESTER AIDE NO [facility] [place] [facility] Apr 17, 2021 09:00 AM VA-TOBACCO USE MED NO [facility] [place] [facility] Apr 17, 2021 09:00 AM VA-TOBACCO USE WI 30 MIN OF WAKEUP [facility] [place] [facility] Apr 17, 2021 09:00 AM VA-TOBACCO USER EVERY DAY [facility] [place] [facility] May 11, 2020 10:54 AM VA-TOBACCO DOESNT USE WI 30 MIN WAKEUP [facility] [place] [facility] May 11, 2020 10:54 AM VA-TOBACCO USE > 15 LESS THAN 30 YEARS [facility] [place] [facility] May 11, 2020 10:54 AM VA-TOBACCO USE ADVICE [facility] [place] [facility] May 11, 2020 10:54 AM VA-TOBACCO USE FORESTER AIDE YES Vet would like Patche to help him quit. [facility] [place] [facility] May 11, 2020 10:54 AM VA-TOBACCO USE MED NOTIFY PROVIDER Wants Patches. [facility] [place] [facility] May 11, 2020 10:54 AM VA-TOBACCO USER EVERY DAY [facility] [place] [facility] Encounter Notes: All associated encounter notes This section contains the clinical notes associated to the Encounter. Date/Time Encounter Note(s) Provider Source Nov 22, 2023 03:13 PM PREVENTIVE MEDICIN E NURSING NOTE: LOCAL TITLE: CLINICAL REMINDERS/NURSING STANDARD TITLE: PREVENTIVE MEDICINE NURSING NOTE DATE OF NOTE: NOV 22, 2023@15:13 ENTRY DATE: NOV 22, 2023@15:13:15 AUTHOR: LISA JOHNSONIGNER: URGENCY: STATUS: COMPLETED Suicide Screen: C-SSRS Screening [place] Suicide Severity Rating Scale (C-SSRS) screener 1. Over the past month, have you wished you were or wished you could go to sleep and not wake up? No 2. Over the past month, have you had any actual thoughts of killing yourself? No 3. Over the past month, have you been thinking about how you might do this? Response not required due to responses to other questions. 4. Over the past month, have you had these thoughts and had some intention of acting on them? Response not required due to responses to other questions. 5. Over the past month, have you started to work out or worked out the details of how to kill yourself? Response not required due to responses to other questions. 6. If yes, at any time in the past month did you intend to carry out this plan? Response not required due to responses to other questions. 7. In your lifetime, have you ever done anything, started to do anything, or prepared to do anything to end your life (for example, collected pills, obtained a gun, gave away valuables, went to the roof but didn't jump)? No 8. If YES, was this within the past 3 months? Response not required due to responses to other questions. 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 The [place]/caregiver was informed that we will continue to ask this screening question every 5 years. They can contact their provider/healthcare team if they have concerns about exposures and would like to be screened sooner. Printed information was offered and provided if desired. Homelessness/Food Insecurity Screen: In the past 2 months, have you been living in stable housing that you own, rent, or stay in as part of a household? Yes - Living in stable housing. Are you worried or concerned that in the next 2 months you may NOT have stable housing that you own, rent, or stay in as part of a household? No - Not worried about housing near future The [place] reports the following: Within the past 12 months, you worried whether your food would run out before you got money to buy more. Never true Within the past 12 months, the food you bought just didn't last and you didn't have money to get more. Never true Avg Risk Colorectal Cancer Screen: AVERAGE RISK colorectal cancer screening is due based on information available to this clinical reminder Screening is due now. Colonoscopy consult has been ordered. See orders tab for details. Depression Screening: Perform PHQ-2 A PHQ-2 screen was performed. The score was 4 which is a positive screen for depression. Over the past two weeks, how often have you been bothered by the following problems? 1. Little interest or pleasure in doing things Several days 2. Feeling down, depressed, or hopeless Nearly every day Licensed Independent Provider notified of positive screen and need for follow-up. Name of provider notified: DR. HEDRICK Hepatitis B Serology/Immunization: The patient declines to have HBV serology done. Reason: patient choice Pneumococcal Conjugate Vaccine (PCV15/PCV20): Refuses PCV vaccine Immunization: PNEUMOCOCCAL CONJUGATE, UNSPECIFIED FORMULATION Refusal Reason: PATIENT DECISION Patient refuses all immunization(s) in the PneumoPCV group Date Documented: 11/22/23 15:15 PTSD Screening: PC-PTSD-5 A PTSD screening test (PC-PTSD-5) was negative (score=0). IN THE PAST MONTH, have you ever had any experience that was so frightening, horrible or traumatic. For example: A serious accident or fire a physical or sexual assault or abuse An earthquake or flood A war Seeing someone be killed or seriously injured Having a loved one through homicide or suicide 1. Have you ever experienced this kind of event? NO 2. Had nightmares about the event(s) or thought about the event(s) when you did not want to? Response not required due to responses to other questions. 3. Tried hard not to think about the event(s) or went out of your way to avoid situations that reminded you of the event(s)? Response not required due to responses to other questions. 4. Been constantly on guard, watchful, or easily startled? Response not required due to responses to other questions. 5. Gail numb or detached from people, activities, or your surroundings? Response not required due to responses to other questions. 6. Gail guilty or unable to stop blaming yourself or others for the event(s) or any problems the event(s) may have caused? Response not required due to responses to other questions. Tobacco Use Screening: The patient uses tobacco every day. The patient uses tobacco within 30 minutes of waking up. The patient has been smoking or using tobacco for more than 1 year and less than 5 years. Patient was advised to quit smoking and/or using tobacco. Discussion with patient included: - Quitting smoking or tobacco use is one of the most important things you can do to protect and improve your health and [place] has the resources to support you. - Set a quit date when you are ready to quit. - Get support from your family and friends. - Review any past quit attempts- What helped? What didn't? - On the day you plan to quit, get rid of all cigarettes and tobacco products from your home, car or work. - Using a combination of behavioral counseling or other support strategies and FDA-approved cessation medications is the most effective way to ensure success in quitting. Patient was offered Behavioral Counseling and other support strategies to assist with quitting. Discussion with patient included: - Behavioral counseling or other support strategies greatly increases your chances of successfully quitting smoking or tobacco use by helping you develop a quit plan and providing support and other strategies to make behavioral changes to help you quit. - [place] has a number of behavioral counseling options to help you with quitting, including: * Provide information about the facility smoking or tobacco use treatment options or clinics * [place]'s national quitline, 4-300-GQQA-VET, with counseling available Saturday-Saturday The patient requested and was provided with more information about how to use the treatment options discussed. Patient was offered FDA-approved cessation medications. Discussion with patient included: - Medications for Nicotine replacement therapy such as the patch, gum or lozenge, and other medications such as varenicline or bupropion, can play an important role in the initial weeks and months after you quit smoking or tobacco use. - Medications help with cravings and withdrawal symptoms and they greatly increase your chances of successfully quitting. Yes, Provider notified of patient's request for medication assistance. Influenza Immunization: Influenza, Trivalent, Preservative Free (Fluarix-Syringe) Administered: INFLUENZA, SPLIT VIRUS, TRIVALENT, PF Date Administered: Nov 22, 2023 15:17 [employer]: [employer] Lot: [id number] Exp Date: Aug 31, 2024 [facility]: [id number] Admin Route/Site: INTRAMUSCULAR/RIGHT DELTOID Dosage: 0.5mL Vaccine Information Statement(s): INFLUENZA(FLU) VACC(INACTIVATED OR RECOMBINANT)VIS Oct 07, 2020 ([place]) Order By: Policy Administered By: Lisa Johnson The Influenza Vaccine Information Statement (VIS) was reviewed with the patient/caregiver which lists the benefits and risks of the vaccine and the risks of not receiving the Influenza vaccine. The patient/caregiver denied any prior severe reaction to this vaccine or its components or a severe allergic reaction, such as anaphylaxis, to any vaccine or any injectable therapy. The patient/caregiver gave verbal consent to receive the vaccine. Alcohol Use Screen (AUDIT-C): Alcohol Screen: SCREEN FOR ALCOHOL (AUDIT-C) An alcohol screening test (AUDIT-C) was positive (score=6). 1. How often did you have a drink containing alcohol in the past year? Consider a drink to be a 12 ounce can or bottle of regular beer, 8 ounces of malt liquor, a 5 ounce glass of table wine, or a 1.5 ounce shot of liquor (like scotch, gin, or vodka). Four or more times a week 2. How many drinks containing alcohol did you have on a typical day when you were drinking in the past year? Five or six drinks 3. How often did you have six or more drinks on one occasion in the past year? Never COVID-19 Immunization: Refused Moderna Monovalent COVID-19 vaccine Immunization: COVID-19 (MODERNA), MRNA, LNP-S, PF, 50 MCG/0.5 ML (AGES 12+ YEARS) Refusal Reason: PATIENT DECISION Patient refuses all immunization(s) in the COVID-19 group Date Documented: 11/22/23 15:18 Herpes Zoster (Shingles) Vaccine: The patient declines to receive the recommended dose of zoster (shingles) vaccine. Immunization: ZOSTER RECOMBINANT Refusal Reason: PATIENT DECISION Patient refuses all immunization(s) in the ZOSTER group Date Documented: 11/22/23 15:18 Sexual Orientation: The patient thinks of their sexual orientation as: Straight or Heterosexual RHS Screen: RHS Screen Environmental Check Upon inquiry, the individual reports that the environment is safe to proceed. Informed Consent to Screen and Document The individual consents to proceed with screening. The individual consents to documentation of responses. PRIMARY SCREEN: In the past 12 months, how often did a current or former intimate partner (e.g., boyfriend, girlfriend, , , sexual partner): 1. Scream or curse at you Never 2. Insult or talk down to you Never 3. Threaten you with harm Never 4. Physically hurt you Never 5. Force or pressure you to have sexual contact against your will, or when you were unable to say no Never ?? The HITS tool (items 1-4 above) is [place] copyright protected by Braxton Schultz MD, and the user has full rights to use it throughout the [place] system. PRIMARY SCREEN RESULT: The Primary Screen is NEGATIVE. The individual answered never to all forms of IPV above (i.e., answered never to all 5 items) The individual accepts education and/or resources: No EDUCATION: The individual indicated readiness to learn. Education offered during this session as noted above. The individual indicated understanding by asking relevant questions and making appropriate comments. No barriers to learning were observed or identified. Hepatitis A Vaccine for High Risk: Patient declines/refuses Hepatitis A immunization Immunization: HEP A, UNSPECIFIED FORMULATION Refusal Reason: PATIENT DECISION Patient refuses all immunization(s) in the HepA group Date Documented: 11/22/23 15:19 Information on advanced directive given. /damien/ LISA JOHNSON LPN LPN Signed: 11/22/2023 15:23 LISA JOHNSON [place]
--- OUTSIDE RECORDS SUMMARY | 2024-03-20 08:22 | XMS_ITS | Encounter Summary ---
Author Name [facility] [place] Organization [facility] [facility] [place] Address [address] [place] [address] Care Team Providers Care Round Cutter Operator Name Role Phone JAMMIE MCFARLANE Primary Care [...] Cullen's Name Patient's Relationship to Policy Cullen [facility], 2021 MEDICAI D [id number] [place], [place] LT PATIENT MEDICAID MEDICAID [facility] [place] Mar 11, 2017 MEDICAI D [id number] [place] LTER PATIENT Selected Encounter This section includes the information on record at [place] for the Encounter. Date/Time Encounter Type Encounter Description Reason Provider Source Nov 22, 2023 03:00 PM OFFICE O/P EST MOD 30 MIN PRIMARY CARE/MEDICINE ICD-10-CM I10 Essential (primary) hypertension RUSH HEDRICK IHBabita Encounter Template Text not used by VA Assessments - Encounter Diagnoses This section includes the primary and secondary diagnoses documented for the Encounter. Date/Time Primary/Secondary Diagnosis Diagnosis Name Provider Source Nov 22, 2023 03:58 PM PRIMARY Essential (primary) hypertension RUSH HEDRICK [place] Nov 22, 2023 03:58 PM SECONDARY Athscl heart disease of [place] coronary artery w/o ang pctrs RUSH HEDRICK [place] Nov 22, 2023 03:58 PM SECONDARY Constipation, unspecified RUSH HEDRICK [place] Nov 22, 2023 03:58 PM SECONDARY Depression, unspecified RUSH HEDRICK [place] Nov 22, 2023 03:58 PM SECONDARY Nicotine dependence, unspecified, uncomplicated [facility] Plan of Treatment: Future Appointments (+ 6 months) and Future Tests (+/- 45 days) The Plan of Treatment section includes future care activities for the patient from all [place] [facility]. This section includes future appointments and future orders which are active, pending or scheduled. Future Appointments This section includes appointments that were scheduled to occur 6 months from the date of the Encounter, up to a maximum of 20 appointments. The data comes from all [facility]. Appointment Date/Time Appointment Type Appointme nt Facility Name Dec 05, 2023 09:00 AM AMBULATORY - PSYCHIATRY [facility] Dec 19, 2023 10:00 AM AMBULATORY - PSYCHIATRY [facility] Apr 15, 2024 02:30 PM AMBULATORY - NONE [place] [facility] [place] [facility] Active, Pending, and Scheduled Orders This section includes a listing of several types of active, pending, and scheduled orders, including clinic medications orders, diagnostic test orders, procedure orders and consult orders; where the start date of the order is 45 days before the date of the Encounter or 45 days after the date of theEncounter. The data comes from all [facility]. Test Date/Time Test Type Test Details Facility Name Nov 22, 2023 03:53 PM Consult Order COMMUNITY CARE-COLONOSCOPY SCREENING Cons Ict Sales Representative's Choice [place] Vital Signs: All taken on the encounter date This section contains inpatient and outpatient Vital Signs collected on the date of the Encounter. Date/Time Temperature Pulse Blood Pressure Respiratory Rate SP02 Pain Height Weight Body Mass Index Source Nov 22, 2023 03:12 PM 98.3 86 154/90 98 154.6 24 [place] Social History: Smoking Status (Most current) and Tobacco Use (All prior to encounter date) This section includes the most current, and the historical, smoking and tobacco- related health factors from the [place] facility where the Encounter took place. Current Smoking Status This section includes the most current smoking, or tobacco-related health factor, from the [place] facility where the Encounter took place. Date/Time Current Smoking Status Comment Delphine leach Dec 05, 2018 10:18 AM VA-TOBACCO NEVER USED [place] Tobacco Use History This section includes a history of the smoking, or tobacco-related health factors, that were collected on or before the date of the Encounter. The data comes from the [place] facility where the Encounter took place. Date/Time Smoking Status/Tobacco Use Comment [facility] Dec 30, 2012 01:08 PM CURRENT SMOKER 6 CIGARETTES A DAY [place] Dec 30, 2012 01:08 PM V1-PT DECLINES REF TO TOBACCO CESS [facility] Dec 30, 2012 01:08 PM V1-PT DECLINES TOB ACCO CESSATION [facility] Dec 30, 2012 01:08 PM V1-PT THINKING ABO UT QUIT TOBACCO USE [place] May 31, 2011 02:42 PM V1-PT THINKING ABO UT QUIT TOBACCO USE [place] Apr 30, 2011 08:15 AM CURRENT SMOKER States he smokes 5-6 cigarretts/day and is thinking about quitting. [place] Apr 11, 2010 10:03 AM V1-PT DECLINES REF TO TOBACCO CESS [facility] Apr 11, 2010 10:03 AM V1-PT DECLINES TOB ACCO CESSATION [facility] Apr 11, 2010 10:03 AM V1-PT THINKING ABO UT QUIT TOBACCO USE [place] July 18, 2009 11:11 AM CURRENT SMOKER [facility] July 18, 2009 11:11 AM V1-PT DECLINES REF TO TOBACCO CESS [facility] July 18, 2009 11:11 AM V1-PT DECLINES TOB ACCO CESSATION [facility] July 18, 2009 11:11 AM V1-PT THINKING ABO UT QUIT TOBACCO USE [place] Dec 26, 2006 01:20 PM CURRENT SMOKER 1/2 pack/day and doesn't want to quit [place] Dec 26, 2006 01:20 PM V1-PT DECLINES REF TO TOBACCO CESS [facility] Dec 26, 2006 01:20 PM V1-PT DECLINES TOB ACCO CESSATION [facility] Dec 26, 2006 01:20 PM V1-PT NOT INTEREST ED IN QUIT TOBACCO USE [place] Jan 21, 2003 11:36 AM HISTORY OF SMOKING Patient states he quit smoking in 1977. [place] Jan 21, 2003 11:36 AM QUIT TOBACCO USE 1 -7 YEARS AGO [place] Aug 12, 2001 01:08 PM HISTORY OF SMOKING Stopped tobacco 5 years ago [place] Aug 12, 2001 01:08 PM QUIT TOBACCO USE 1 -7 YEARS AGO stopped tobacco 5 years ago [place] Encounter Notes: All associated encounter notes This section contains the clinical notes associated to the Encounter. Date/Time Encounter Note(s) Provider Source Nov 22, 2023 03:37 PM PHYSICIAN NOTE: LOCAL TITLE: MD NOTE STANDARD TITLE: PHYSICIAN NOTE DATE OF NOTE: NOV 22, 2023@15:37 ENTRY DATE: NOV 22, 2023@15:37:44 AUTHOR: RUSH HEDRICK COSIGNER: URGENCY: STATUS: COMPLETED HISTORY OF PRESENT ILLNESS: first time seen , transferred from Dr Marcos ABDIAZIZ VILLAVICENCIO, is a 58 yo MALE , who presents at the [facility] to meet the new PCP. Active problems - Computerized Problem List is the source for the following: -Essential hypertension -CAD -Constipation -Current smoker -PTSD and depression The following VA and Non-VA meds were reconciled with patient: Active Outpatient Medications (including Supplies): Issue Date Status Last Fill Active Outpatient Medications Refills Expiration ========= 1) ASPIRIN 81MG EC TAB Qty: 120 for 90 ACTIVE Issu:10-30-23 days Sig: TAKE ONE TABLET BY MOUTH Refills: 0 Last:10-30-23 ONCE DAILY PREVENTIVE TO PREVENT Expr:01-28-24 STROKE/HEART ATTACK Start Date Active Non-VA Medications Refills Expiration ========= 1) Non-VA ASPIRIN 81MG EC TAB SiMG BY ACTIVE MOUTH DAILY 2) Non-VA BISACODYL TAB,EC Sig: BY MOUTH ACTIVE ONCE DAILY 3) Non-VA DOCUSATE NA CAP,ORAL Sig: BY ACTIVE MOUTH ONCE DAILY 4 Total Medications ALLERGIES: ========= ENVIRONMENTAL ALLERGENS LAB HISTORY: no new labs HISTORY: PERIOD OF SERVICE - [employer] FROM Oct TO Aug COMBAT SERVICE INDICATED: No REVIEW OF SYSTEMS: No fever, chills No chest pain, shortness of breath at rest or with ambulation No cough or wheezing No abdominal pain nausea or vomiting Positive for chronic constipation on and off No headaches or dizziness Positive for PTSD and depression but denies any suicidal or homicidal ideation PHYSICAL EXAMINATION: WD/WN [place] seems to be in NAD S1-S2 positive, RRR OLGA, CTA bilateral Abdomen soft nontender to palpation No edema lower extremities AAO x3; ambulates without help ASSESSMENT/PLAN: -Essential hypertension-blood pressure mild elevated today in office but patient is asymptomatic the is off medication since April of this year I restart lisinopril 5 and hydrochlorothiazide 25 mg p.o. daily I advised him to decrease salt intake and exercise as tolerated -CAD-continue baby aspirin healthy diet and exercise I advised him to quit smoking -Constipation-senna ordered -Current smoker-he states smokes half pack a day and he is interesting in using patches Nicotine patches 14 mcg patch ordered for 6 weeks -PTSD and depression -he denies any suicidal or homicidal ideation Mental health consultation placed I advised him to decrease alcohol intake to maximum 14 drinks in a week FOLLOW UP: ========= RTC -beginning of January with fasting labs for hypertension smoker depression CAD Today's documentation was made using voice recognition software. This note may contain spelling/grammatical errors secondary to this software. Every effort is made to correct errors, but if mistakes are found they need to be taken in context. UPCOMING APPOINTMENTS: No data available No barriers; Patient understands and agrees to current treatment plan. If pt has any questions, concerns, or changes in current health status he/she will call or come in to the VA. Follow-Up Pos PTSD/Depression: I have reviewed the results of the Mental Health screens and have evaluated the patient. Based on the evaluation, the following disposition plan will be implemented: Patient to be evaluated by Mental Health Routine/Non-emergent Mental Health Evaluation needed. Follow-up Pos Alcohol : Patient's AUDIT-C score was greater than or equal to 5; brief alcohol intervention is indicated. Shared concern that the patient may be drinking at unhealthy levels known to increase his/her risk of alcohol related health problems. Specifically the following were reviewed: High blood pressure, heart disease, depression The patient was advised/informed to drink within safe limits, which are no more than 2 drinks per day on average and no more than 4 drinks on any one day AND no more than 14 drinks per week. Will discuss again at next visit. Medication Reconciliation: Outpatient: Has the patient been taking medications as documented in the EMLR? No: Discrepencies were identified. See below. Essential Medication List for Review used to complete this medication reconciliation. INCLUDED IN THIS LIST: Alphabetical list of active outpatient prescriptions dispensed from this VA (local) and dispensed from another VA or DoD facility (remote) as well as inpatient orders (local, pending and active), local clinic medications, locally documented non-VA medications, and local prescriptions that have or been discontinued in the past 90 days. - Discrepancies were identified, addressed, and discussed with the patient/caregiver at this encounter. - All changes in medications, including all non-VA/Herbal/OTC medications were entered into CPRS. - If there were any medications the patient should no longer take, they were discontinued. - The patient/caregiver was instructed to update this list, discard old lists, and take this list to the next appointment, whether with a VA or non-VA provider. JLV Link Data on this list may not be complete. Please check JLV. Allergies/ADRs (Tool #5) FACILITY ALLERGY/ADR -------- [facility] [place] [facility] ENVIRONMENTAL ALLERGENS [facility] ENVIRONMENTAL ALLERGENS [facility] (Tool #1) INCLUDED IN THIS LIST: Alphabetical list of active outpatient prescriptions dispensed from this VA (local) and dispensed from another VA or [facility] facility (remote) as well as inpatient orders (local pending and active), local clinic medications, locally documented non-VA medications, and local prescriptions that have or been discontinued in the past 90 days. Non-VA Meds Last Documented On: Oct 20, 2021 NOTE The display of VA prescriptions dispensed from another VA or DoD facility (remote) is limited to active outpatient prescription entries matched to National Drug File at the originating site and may not include some items such as investigational drugs, compounds, etc. NOT INCLUDED IN THIS LIST: Medications self-entered by the patient into personal health records (i.e. [facility]) are NOT included in this list. Non-VA medications documented outside this [place], remote inpatient orders (regardless of status) and remote clinic medications are NOT included in this list. The patient and provider must always discuss medications the patient is taking, regardless of where the medication was dispensed or obtained. -------- Non-VA ASPIRIN 81MG EC TAB TAKE ONE TABLET BY MOUTH DAILY OUTPT ASPIRIN 81MG EC TAB (Status = Active) TAKE ONE TABLET BY MOUTH ONCE DAILY PREVENTIVE TO PREVENT STROKE/HEART ATTACK Rx# [id number] Last Released: 11/06/23 Qty/Days Supply: 120/90 Rx Expiration Date: 01/28/24 Refills Remainin Indication: PREVENTIVE Non-VA BISACODYL TAB,EC TAKE BY MOUTH ONCE DAILY Non-VA DOCUSATE NA CAP,ORAL TAKE BY MOUTH ONCE DAILY -------- SUPPLIES -------- /damien/ RUSH HEDRICK MD PRIMARY CARE PHYSICIAN Signed: 11/22/2023 15:59 RUSH HEDRICK [place] Nov 14, 2023 12:48 PM ADMINISTRATIVE NOT E: LOCAL TITLE: ADMINISTRATIVE NOTE STANDARD TITLE: ADMINISTRATIVE NOTE DATE OF NOTE: NOV 14, 2023@12:48 ENTRY DATE: NOV 14, 2023@12:48:33 AUTHOR: BELTRAN RAMIREZ COSIGNER: URGENCY: STATUS: COMPLETED [facility] [address] [place] [phone] * [phone] * [address] [address] Date: NOV 14, 2023 re: This is a reminder of your upcoming PCP appt with RUSH HEDRICK. Appointment Date: Nov@15:00 Appointment Type: In-person visit Fasting blood work NON fasting blood work CONFIRMED WITH THE Sincerely, Office Staff for: RUSH HEDRICK Primary Care Provider [facility] [address] [place] [id number] T [phone] F [phone] Upcoming Appointments: 11/22/2023 15:00 CWM/SO/PACT EIGHT WH APPOINTMENT ABBREVIATION COLÓN (SPOPC OR SO = [address]) (GOPC OR GO = [address]) (NHM or NO = [facility]) (VVC - Video Call) (Tel-X Telephone Visit) (TH - Telehealth) /damien/ BELTRAN DENNY Signed: 11/14/2023 12:49 BELTRAN RAMIRZE [place]
--- OUTSIDE RECORDS SUMMARY | 2024-03-20 08:22 | XMS_ITS ---
Author Name [facility] [place] [facility] [place] Address [address] [place] [address] Care Team Providers Care Seed Collector Name Role Phone JAMMIE MCFARLANE Primary Care [...] Cullen's Name Patient's Relationship to Policy Cullen [facility] Mar 04, 2021 MEDICAI D [id number] [facility]TER PATIENT MEDICAID MEDICAID [facility] [place] [place] Mar 11, 2017 MEDICAI D [id number] [place] PAT[place] Selected Encounter This section includes the information on record at [place] for the Encounter. Date/Time Encounter Type Encounter Description Reason Pro vider Source Nov 01, 2023 04:08 PM Outpatient Encounter ADMIN PAT ACTIVTIES (MASNONCT) IHE Encounter Template Text not used by VA Plan of Treatment: Future Appointments (+ 6 months) and Future Tests (+/- 45 days) The Plan of Treatment section includes future care activities for the patient [facility] This section includes future appointments and future orders which are active, pending or scheduled. Future Appointments This section includes appointments that were scheduled to occur 6 months from the date of the Encounter, up to a maximum of 20 appointments. The data comes from all [facility]. Appointment Date/Time Appointment Type Appointme nt Facility Name Nov 22, 2023 03:00 PM AMBULATORY - MEDICINE [facility] Dec 05, 2023 09:00 AM AMBULATORY - PSYCHIATRY [facility] Dec 19, 2023 10:00 AM AMBULATORY - PSYCHIATRY [facility] Apr 15, 2024 02:30 PM [facility] [place] [facility] Active, Pending, and Scheduled Orders This section includes a listing of several types of active, pending, and scheduled orders, including clinic medications orders, diagnostic test orders, procedure orders and consult orders; where the start date of the order is 45 days before the date of the Encounter or 45 days after the date of theEncounter. The data comes from all [facility]. 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 Current Smoking Status This section includes the most current smoking, or tobacco-related health factor, from the [place] facility where the Encounter took place. Date/Time Current Smoking Status Comment Delphine bennett Apr 17, 2021 09:00 AM VA-TOBACCO USER EVERY DAY [place] [facility] [place] [facility] Tobacco Use History This section includes a history of the smoking, or tobacco-related health factors, that were collected on or before the date of the Encounter. The data comes from the [place] facility where the Encounter took place. Date/Time Smoking Status/Tobac co Use Comment Facility Apr 17, 2021 09:00 AM VA-TOBACCO USE ADVICE [place] [facility] [place] [facility] Apr 17, 2021 09:00 AM VA-TOBACCO USE BLADE BONER NO [place] [facility] [place] [facility] Apr 17, 2021 09:00 AM VA-TOBACCO USE MED NO [facility] [place] [facility] Apr 17, 2021 09:00 AM VA-TOBACCO USE WI 30 MIN [facility] Apr 17, 2021 09:00 AM VA-[facility]BACCO USER EVERY DAY [facility] May 11, 2020 10:54 AM VA-TOBACCO DOESNT USE WI 30 MIN WAKEUP [facility] May 11, 2020 10:54 AM VA-TOBACCO USE > 15 LESS THAN 30 YEARS [facility] May 11, 2020 10:54 AM VA-TOBACCO USE ADVICE [facility] May 11, 2020 10:54 AM VA-TOBACCO USE BLADE BONER YES Vet would like Patche to help him quit. [facility] May 11, 2020 10:54 AM VA-TOBACCO USE MED NOTIFY PROVIDER Wants Patches. [facility] May 11, 2020 10:54 AM VA-TOBACCO USER EVERY DAY [facility] Encounter Notes: All associated encounter notes This section contains the clinical notes associated to the Encounter. Date/Time Encounter Note(s) Provider Source Nov 01, 2023 04:08 PM PHARMACY NOTE: LOCAL TITLE: V1 PHARMACY CUSTOMER CARE MEDICATION RENEWAL STANDARD TITLE: PHARMACY NOTE DATE OF NOTE: NOV 01, 2023@16:08 ENTRY DATE: NOV 01, 2023@16:08:20 AUTHOR: STACY TELLES COSIGNER: URGENCY: STATUS: COMPLETED V1 PHARMACY CUSTOMER CARE MEDICATION RENEWAL Has ADDENDA Date: Oct Division: [place] Pt referred by Pharmacy Call Center for medication renewal: Non-controlled/maintenan ce medication Medications requested: [id number] HCTZ 25/TRIAMTERENE 37.5MG TAB [id number] LISINOPRIL 5MG TAB To be mailed . Please review and renew if appropriate. *This note was generated by [facility]IN Pharmacy Customer Care. If you have any questions or need assistance, do not contact this author. Please refer all questions to your local, on-site pharmacy departments. /es/ Raciel TELLES CPhT Insole Stiffener, [place]/Pharmacy Customer Care Signed: 11/01/2023 16:08 Receipt Acknowledged By: 11/01/2023 16:11 /damien/ RUSH HEDRICK MD PRIMARY CARE PHYSICIAN 11/06/2023 12:27 /damien/ ESA HUERTAN RN-BC REGISTERED NURSE 11/01/2023 ADDENDUM STATUS: COMPLETED Please see the addendum to previous request /james HEDRICK MD PRIMARY CARE PHYSICIAN Signed: 11/01/2023 16:11 STACY TELLES [facility]L [facility]
--- OUTSIDE RECORDS SUMMARY | 2024-03-20 08:22 | XMS_ITS ---
Author Name [facility] [place] [facility] [place] Address [address] [place] [id number] Care Team Providers Care Insulation Mechanic Name Role Phone JAMMIE MCFARLANE Primary Care [...] Cullen's Name Patient's Relationship to Policy [facility]ICA[facility] Mar 04, 2021 MEDICAI D [id number] [phone] [place] LTER PATIENT MEDICAID [facility]ID [facility] [place] Mar 11, 2017 MEDICAI D [id number] [place] LTER PATIENT Selected Encounter This section includes the information on record at [place] for the Encounter. Date/Time Encounter Type Encounter Description Reason Pro vider Source Nov 01, 2023 09:59 AM Outpatient Encounter ADMIN PAT ACTIVTIES (MASNONCT) IHE Encounter Template Text not used by VA Plan of Treatment: Future Appointments (+ 6 months) and Future Tests (+/- 45 days) The Plan of Treatment section includes future care activities for the [facility] This section includes future appointments and future orders which are active, pending or scheduled. Future Appointments This section includes appointments that were scheduled to occur 6 months from the date of the Encounter, up to a maximum of 20 appointments. The data comes from all [facility]. Appointment Date/Time Appointment Type Appointme nt Facility Name Nov 22, 2023 03:00 PM AMBULATORY - MEDICINE [facility] Dec 05, 2023 09:00 AM AMBULATORY - PSYCHIATRY [facility] Dec 19, 2023 10:00 AM AMBULATORY - PSYCHIATRY [facility] Apr 15, 2024 02:30 PM [facility] [place] [facility] Active, Pending, and Scheduled Orders This section includes a listing of several types of active, pending, and scheduled orders, including clinic medications orders, diagnostic test orders, procedure orders and consult orders; where the start date of the order is 45 days before the date of the Encounter or 45 days after the date of theEncounter. The data comes from all [facility]. Test Date/Time Test Type Test Details Facility Name Nov 22, 2023 03:53 PM Consult Order COMMUNITY CARE-COLONOSCOPY SCREENING Cons Police Sergeant Precinct's [facility] Social History: Smoking Status (Most current) [...] USER EVERY DAY [place] [facility] [place] [facility] Tobacco Use History This section includes a history of the smoking, or tobacco-related health factors, that were collected on or before the date of the Encounter. The data comes from the [place] facility where the Encounter took place. Date/Time Smoking Status/Tobac co Use Comment Facility Apr 17, 2021 09:00 AM VA-TOBACCO USE ADVICE [place] [facility] [place] [facility] Apr 17, 2021 09:00 AM VA-TOBACCO USE DIRECTOR OF ESTATE NO [place] [facility] [place] [facility] Apr 17, 2021 09:00 AM VA-TOBACCO USE MED NO [place] [facility] [place] [facility] Apr 17, 2021 09:00 AM VA-TOBACCO USE WI 30 MIN OF WAKEUP [facility] Apr 17, 2021 09:00 AM VA-TOBACCO USER EVERY DAY [facility] May 11, 2020 10:54 AM VA-TOBACCO DOESNT USE WI 30 MIN WAKEUP [facility] May 11, 2020 10:54 AM VA-TOBACCO USE > 15 LESS THAN 30 YEARS [facility] May 11, 2020 10:54 AM VA-TOBACCO USE ADVICE [facility] May 11, 2020 10:54 AM VA-TOBACCO USE DIRECTOR OF ESTATE YES Vet would like Patche to help him quit. [facility] May 11, 2020 10:54 AM VA-TOBACCO USE MED NOTIFY PROVIDER Wants Patches. [facility] May 11, 2020 10:54 AM VA-TOBACCO USER EVERY DAY [facility] Encounter Notes: All associated encounter notes This section contains the clinical notes associated to the Encounter. Date/Time Encounter Note(s) Provider Source Nov 01, 2023 09:59 AM ADMINISTRATIVE NOT E: LOCAL TITLE: CCC: SCHEDULING ADMINISTRATION STANDARD TITLE: ADMINISTRATIVE NOTE DATE OF NOTE: NOV 01, 2023@09:59:12 ENTRY DATE: NOV 01, 2023@09:59:12 AUTHOR: VERONICA COLEY COSIGNER: URGENCY: STATUS: COMPLETED Patient Demographics Patient Name: ABDIAZIZ VILLAVICENCIO Patient Primary Phone: [phone] Patient Primary [address]: [address] [place] [address] Patient : 1965 Patient Age: 58 Caller/Recipient Relation to Patient: Self Administrative Administrative Note Reason: Medication Renewal [place] Medications Refill/Renewal Request: is requesting a renewal of HCTZ 12.5/LISINOPRIL 20MG TAB. states he has been out of this medication for over 3 weeks. states his arms are tingling and feet are also swelling and was transferred to interior design professional. IMPORTANT: This note was created by [facility] Clinical Contact Center staff. Please do not alert the staff member by adding them as a signer for future communications. Alerts are not monitored by this user. /damien/ VERONICA COLEY VISN1 [facility] AMS[facility] Signed: 11/01/2023 09:59 Receipt Acknowledged By: 11/01/2023 14:31 /es/ ESA HUERTAN RN-BC REGISTERED NURSE 11/01/2023 16:02 /es/ RUSH HEDRICK MD PRIMARY CARE PHYSICIAN VERONICA COLEY [place] [facility]
--- OUTSIDE RECORDS SUMMARY | 2024-03-20 08:22 | XMS_ITS | Encounter Summary ---
Author Name [facility] [place] Address [address] [place] [address] Care Team Providers Care Hr Generalist Name Role Phone JAMMIE MCFARLANE Primary Care [...] Cullen's Name Patient's Relationship to Policy [facility], 2021 MEDICAI D [id number] [place], [place] LTER PATIENT MEDICAID MEDICAID [facility] [place] Mar 11, 2017 MEDICAI D [id number] [place] LTER PATIENT Selected Encounter This section includes the information on record at [place] for the Encounter. Date/Time Encounter Type Encounter Description Reason Pro vider Source Nov 01, 2023 10:14 AM Outpatient Encounter TELEPHONE TRIAGE IHE Encounter Template Text not used by [place] Plan of Treatment: Future Appointments (+ 6 [...] 20 appointments. The data comes from all [place] treatment [facility]. Appointment Date/Time Appointment Type Appointme nt Facility Name Nov 22, 2023 03:00 PM [facility]UL[facility] Dec 05, 2023 09:00 AM AMBULATORY - PSYCHIATRY [facility] Dec 19, 2023 10:00 AM AMBULATORY - PSYCHIATRY [facility] Apr 15, 2024 02:30 PM AMBULATORY - NONE [facility] Active, Pending, and Scheduled Orders This section includes a listing of several types of active, pending, and scheduled orders, including clinic medications orders, diagnostic test orders, procedure orders and consult orders; where the start date of the order is 45 days before the date of the Encounter or 45 days after the date of theEncounter. The data comes from all [facility]. Test Date/Time Test Type Test Details Facility Name Nov 22, 2023 03:53 PM Consult Order COMMUNITY CARE-COLONOSCOPY SCREENING Cons Consulting [employer] [place] Social History: Smoking Status (Most current) and Tobacco Use (All prior to encounter date) This section includes the most current, and the historical, smoking and tobacco- related health factors from the [place] facility where the Encounter took place. Current Smoking Status This section includes the most current smoking, or tobacco-related health factor, from the [place] facility where the Encounter took place. Date/Time Current Smoking Status Comment [facility] Apr 17, 2021 09:00 AM VA-TOBACCO USER EVERY DAY [facility] Tobacco Use History This section includes a history of the smoking, or tobacco-related health factors, that were collected on or before the date of the Encounter. The data comes from the [place] facility where the Encounter took place. Date/Time Smoking Status/Tobac co Use Comment Facility Apr 17, 2021 09:00 AM VA-TOBACCO USE ADVICE IN [facility] [place] [facility] Apr 17, 2021 09:00 AM VA-TOBACCO USE CLINICAL DATA ANALYST NO IN [facility] [place] [facility] Apr 17, 2021 09:00 AM [facility]-TOBACCO [facility] [place] [facility] Apr 17, 2021 09:00 AM VA-TOBACCO USE WI 30 MIN OF WAKEUP [facility] Apr 17, 2021 09:00 AM VA-TOBACCO USER EVERY DAY [facility] May 11, 2020 10:54 AM VA-TOBACCO DOESNT USE WI 30 MIN WAKEUP [facility] May 11, 2020 10:54 AM VA-TOBACCO USE > 15 LESS THAN 30 YEARS [facility] May 11, 2020 10:54 AM VA-TOBACCO USE ADVICE [facility] May 11, 2020 10:54 AM VA-TOBACCO USE CLINICAL DATA ANALYST YES Vet would like Patche to help him quit. [facility] May 11, 2020 10:54 AM VA-TOBACCO USE MED NOTIFY PROVIDER Wants Patches. [facility] May 11, 2020 10:54 AM VA-TOBACCO USER EVERY DAY [facility] Encounter Notes: All associated encounter notes This section contains the clinical notes associated to the Encounter. Date/Time Encounter Note(s) Provider Source Nov 01, 2023 04:02 PM ADDENDUM: LOCAL TITLE: Addendum STANDARD TITLE: ADDENDUM DATE OF NOTE: NOV 01, 2023@16:02:56 ENTRY DATE: NOV 01, 2023@16:02:57 AUTHOR: RUSH HEDRICK EXP COSIGNER: URGENCY: STATUS: COMPLETED The was not seen by Dr. Marcos since October 2021 He did not have any blood work for more than 1 year and a half. I am not sure what medication is he on, how is the blood pressure or kidney function If the needs to be seen he can come in sick clinic or go to urgent care until our appointment Please inform the [place] thank you /damien/ RUSH HEDRICK MD PRIMARY CARE PHYSICIAN Signed: 11/01/2023 16:05 Receipt Acknowledged By: 11/06/2023 12:27 /damien/ CATALINA HUERTA RN-BC REGISTERED NURSE --- Original Document --- 11/01/23 CCC: CLINICAL TRIAGE: Patient Demographics Patient Name: ABDIAZIZ VILLAVICENCIO Patient Primary Address: [address] [place] [address] Patient Primary Phone: [phone] Patient : 1965 Patient Age: 58 Call Back Number: [phone] Caller/Recipient Relation to Patient: Self Emergency Contact: YVONNE HERNANDEZEdi Triage Summary Conducted triage/discussed symptoms Utilized the Triage Tool: Yes Chief Complaint: Feet Swelling System WHEN: Within 2 Weeks Nurse's Recommendation / WHEN: Within 2 Weeks System WHERE: Clinic Nurse's Recommendation / WHERE: Clinic/[facility] Nursing Plan and Disposition Other course(s) of action Generated msg to PACT/Provider Provided guidance for worsening symptoms: *Caller/Patient* advised to call facilities [place] Clinical Contact Center or seek immediate medical attention for new or worsening symptoms Nurse Summary Nurse Summary: Spoke to vet who reports he has been out of his HCTZ/Lisinopril for an unknown amount of time. He has noticed that his feet have been swelling throughout the day. When he wakes in the morning they are back to normal. He denies any other new symptoms but he wants to start retaking his BP med today. He would like to pick it up at the [facility]. Advised ED/UC for new or worsening symptoms. Will alert PACT to above. Clinical Contact Center Codes Clinic/Location: V1 CWM PHONE [facility] RN Decision Support System Output: Triage Complete Triage Date: 11/01/2023, 10:05 AM Triage Note: Decision Support Tool Used: [place] Phone Triage 01 Nov 2023 14:02:18 +0000 [facility] Demographics 58 y/o Male Results CC: Feet Swelling Software suggested: Within 2 Weeks Software suggested follow-up location: Clinic, consider [facility] care Values and Measures Duration of CC: 2 Days Positive Responses PMH: hypertension Negative Responses Denies: HPI: foot erythema, bilateral, worsening Denies: HPI: foot pain, with foot swelling, bilateral Denies: HPI: foot swelling, bilateral, duration longer than 3 days Denies: HPI: foot swelling, worsening Denies: PMH: CHF Denies: PMH: cirrhosis Denies: PMH: diabetes Denies: PMH: kidney disease IMPORTANT: This note was created by [place] [facility] Clinical Contact Center staff. Please do not alert the staff member by adding them as a signer for future communications. Alerts are not monitored by this user. /es/ Michaela McdermottRN,BSN Call Center Registered Nurse Signed: 11/01/2023 10:14 Receipt Acknowledged By: 11/01/2023 14:44 /damien/ CATALINA HUERTA RN-BC REGISTERED NURSE 11/01/2023 15:10 /damien/ TNEZIN BIRMINGHAM LPN Licensed Practical Nurse 11/01/2023 ADDENDUM STATUS: COMPLETED author called [place] to discuss request and advised that his last lisinopril and hctz/tria orders were for 30 day supply and reports that he recently ran out of the medication. Author advised that PCP reviewed previous request and advised that will discuss request at upcoming appt. [place] requests to be provided with short supply of medication until he is able to see provider in Nov 2023. [place] reports that he had previous pcp follow up appt scheduled but his pcp retired and then his next appt with new provider was cancelled and rescheduled. Author encouraged [place] to go to urgent care if having any worsening symptoms as noted above and that will forward this request for short supply to PCP for review. /damien/ CATALINA HUERTA RN-BC REGISTERED NURSE Signed: 11/01/2023 14:47 Receipt Acknowledged By: 11/01/2023 16:00 /damien/ RUSH HEDRICK MD PRIMARY CARE PHYSICIAN RUSH HEDRICK [place] [facility] [place] [facility] Nov 01, 2023 02:44 PM ADDENDUM: LOCAL TITLE: Addendum STANDARD TITLE: ADDENDUM DATE OF NOTE: NOV 01, 2023@14:44:34 ENTRY DATE: NOV 01, 2023@14:44:35 AUTHOR: SAÚL FRANKS EXP COSIGNER: URGENCY: STATUS: COMPLETED author called [place] to discuss request and advised that his last lisinopril and hctz/tria orders were for 30 day supply and [place] reports that he recently ran out of the medication. Author advised that PCP reviewed previous request and advised that will discuss request at upcoming appt. [place] requests to be provided with short supply of medication until he is able to see provider in Nov 2023. [place] reports that he had previous pcp follow up appt scheduled but his pcp retired and then his next appt with new provider was cancelled and rescheduled. Author encouraged to go to urgent care if having any worsening symptoms as noted above and that will forward this request for short supply to PCP for review. /es/ CATALINA HUERTA RN-BC REGISTERED NURSE Signed: 11/01/2023 14:47 Receipt Acknowledged By: 11/01/2023 16:00 /es/ RUSH HEDRICK MD PRIMARY CARE PHYSICIAN --- Original Document --- 11/01/23 CCC: CLINICAL TRIAGE: Patient Demographics Patient Name: ABDIAZIZ VILLAVICENCIO Patient Primary Address: [address] [place] [address] Patient Primary Phone: [phone] Patient : 1965 Patient Age: 58 Call Back Number: [phone] Caller/Recipient Relation to Patient: Self Emergency Contact: YVONNE VILLAVICENCIO Triage Summary Conducted triage/discussed symptoms Utilized the Triage Tool: Yes Chief Complaint: Feet Swelling System WHEN: Within 2 Weeks Nurse's Recommendation / WHEN: Within 2 Weeks System WHERE: Clinic Nurse's Recommendation / WHERE: Clinic/[facility] Nursing Plan and Disposition Other course(s) of action Generated msg to PACT/Provider Provided guidance for worsening symptoms: *Caller/Patient* advised to call facilities [place] Clinical Contact Center or seek immediate medical attention for new or worsening symptoms Nurse Summary Nurse Summary: Spoke to vet who reports he has been out of his HCTZ/Lisinopril for an unknown amount of time. He has noticed that his feet have been swelling throughout the day. When he wakes in the morning they are back to normal. He denies any other new symptoms but he wants to start retaking his BP med today. [facility] Advised ED/UC for new or worsening symptoms. Will alert PACT to above. Clinical Contact Center Codes Clinic/Location: V1 CWM PHONE [facility] RN Decision Support System Output: Triage Complete Triage Date: 11/01/2023, 10:05 AM Triage Note: Decision Support Tool Used: [place] Phone Triage 01 Nov 2023 14:02:18 +0000 [facility] Demographics 58 y/o Male Results CC: Feet Swelling Software suggested: Within 2 Weeks Software suggested follow-up location: Clinic, consider virtual care Values and Measures Duration of CC: 2 Days Positive Responses PMH: hypertension Negative Responses Denies: HPI: foot erythema, bilateral, worsening Denies: HPI: foot pain, with foot swelling, bilateral Denies: HPI: foot swelling, bilateral, duration longer than 3 days Denies: HPI: foot swelling, worsening Denies: PMH: CHF Denies: PMH: cirrhosis Denies: PMH: diabetes Denies: PMH: kidney disease IMPORTANT: This note was created by [facility] Clinical Contact Center staff. Please do not alert the staff member by adding them as a signer for future communications. Alerts are not monitored by this user. /damien/ Michaela Mcdermott RN,BSN Call Center Registered Nurse Signed: 11/01/2023 10:14 Receipt Acknowledged By: 11/01/2023 14:44 /damien/ CATALINA HUERTA RN- REGISTERED NURSE 11/01/2023 15:10 /damien/ TENZIN BIRMINGHAM LPN Licensed Practical Nurse SAÚL FRANKS IN [facility] Nov 01, 2023 10:14 AM RN PROGRESS NOTE: LOCAL TITLE: CCC: CLINICAL TRIAGE STANDARD TITLE: RN PROGRESS NOTE DATE OF NOTE: NOV 01, 2023@10:14:23 ENTRY DATE: NOV 01, 2023@10:14:24 AUTHOR: MICHAELA MCDERMOTT EXP COSIGNER: URGENCY: STATUS: COMPLETED CCC: CLINICAL TRIAGE Has ADDENDA Patient Demographics Patient Name: ABDIAZIZ VILLAVICENCIO Patient Primary Address: [address] [place] [address] Patient Primary Phone: [phone] Patient : 1965 Patient Age: 58 Call Back Number: [phone] Caller/Recipient Relation to Patient: Self Emergency Contact: YVONNE VILLAVICENCIO Triage Summary Conducted triage/discussed symptoms Utilized the Triage Tool: Yes Chief Complaint: Feet Swelling System WHEN: Within 2 Weeks Nurse's Recommendation / WHEN: Within 2 Weeks System WHERE: Clinic Nurse's Recommendation / WHERE: Clinic/[facility] Nursing Plan and Disposition Other course(s) of action Generated msg to PACT/Provider Provided guidance for worsening symptoms: *Caller/Patient* advised to call facilities [place] Clinical Contact Center or seek immediate medical attention for new or worsening symptoms Nurse Summary Nurse Summary: Spoke to vearthur who reports he has been out of his HCTZ/Lisinopril for an unknown amount of time. He has noticed that his feet have been swelling throughout the day. When he wakes in the morning they are back to normal. He denies any other new symptoms but he wants to start retaking his BP med today. He would like to pick it up at the [facility]. Advised ED/UC for new or worsening symptoms. Will alert PACT to above. Clinical Contact Center Codes Clinic/Location: V1 CWM PHONE [facility] RN Decision Support System Output: Triage Complete Triage Date: 11/01/2023, 10:05 AM Triage Note: Decision Support Tool Used: [place] Phone Triage 01 Nov 2023 14:02:18 +0000 [facility] Demographics 58 y/o Male Results CC: Feet Swelling Software suggested: Within 2 Weeks Software suggested follow-up location: Clinic, consider [facility] Values and Measures Duration of CC: 2 Days Positive Responses PMH: hypertension Negative Responses Denies: HPI: foot erythema, bilateral, worsening Denies: HPI: foot pain, with foot swelling, bilateral Denies: HPI: foot swelling, bilateral, duration longer than 3 days Denies: HPI: foot swelling, worsening Denies: PMH: CHF Denies: PMH: cirrhosis Denies: PMH: diabetes Denies: PMH: kidney disease IMPORTANT: This note was created by [facility] Clinical Contact Center staff. Please do not alert the staff member by adding them as a signer for future communications. Alerts are not monitored by this user. /james Mcdermott RN,BSN Call Center Registered Nurse Signed: 11/01/2023 10:14 Receipt Acknowledged By: 11/01/2023 14:44 /CATALINA Henderson RN-BC REGISTERED NURSE 11/01/2023 15:10 /damien/ TENZIN BIRMINGHAM LPN Licensed Practical Nurse 11/01/2023 ADDENDUM STATUS: COMPLETED author called to discuss request and advised that his last lisinopril and hctz/tria orders were for 30 day supply and [place] reports that he recently ran out of the medication. Author advised that PCP reviewed previous request and advised that will discuss request at upcoming appt. [place] requests to be provided with short supply of medication until he is able to see provider in Nov 2023. [place] reports that he had previous pcp follow up appt scheduled but his pcp retired and then his next appt with new provider was cancelled and rescheduled. Author encouraged [place] to go to urgent care if having any worsening symptoms as noted above and that will forward this request for short supply to PCP for review. /CATALINA Henderson RN-BC REGISTERED NURSE Signed: 11/01/2023 14:47 Receipt Acknowledged By: 11/01/2023 16:00 /damien/ RUSH HEDRICK MD PRIMARY CARE PHYSICIAN 11/01/2023 ADDENDUM STATUS: COMPLETED The was not seen by Dr. Marcos since October 2021 He did not have any blood work for more than 1 year and a half. I am not sure what medication is he on, how is the blood pressure or kidney function If the needs to be seen he can come in sick clinic or go to urgent care until our appointment Please inform the [place] thank you /james HEDRICK MD PRIMARY CARE PHYSICIAN Signed: 11/01/2023 16:05 Receipt Acknowledged By: * AWAITING SIGNATURE * SAÚL FRANKS [facility]
--- OUTSIDE RECORDS SUMMARY | 2024-03-20 08:23 | XMS_ITS | Encounter Summary ---
Author Name [facility] [place] Address [address] [place] [address] Care Team Providers Care Line Camera Operator Name Role Phone JAMMIE MCFARLANE Primary [...] Patient's Relationship to Policy [facility] Mar 04, 2021 MEDICAI D [id number] [place], [place] LTER PATIENT MEDICAID MEDICAID [facility] [place] Mar 11, 2017 MEDICAI D [id number] [facility] LTER PATIENT Selected Encounter This section includes the information on record at [place] for the Encounter. Date/Time Encounter Type Encounter Description Reason Pro vider Source Jan 23, 2024 02:55 PM Outpatient Encounter PRIMARY CARE/MEDICINE IHE Encounter [...] The data comes from all [place] treatment facilities. Appointment Date/Time Appointment Type Appointme nt Facility Name Apr 15, 2024 02:30 PM [facility] NONE [place] [facility] Social History: Smoking Status (Most current) and [...] took place. Date/Time Current Smoking Status Comment Facil it Nov 22, 2023 03:13 PM VA-TOBACCO [facility] [place] [facility] Tobacco Use History This section includes a history of the smoking, or tobacco-related health factors, that were collected on or before the date of the Encounter. The data comes from the [place] facility where the Encounter took place. Date/Time Smoking Status/Tobac co Use Comment Facility Nov 22, 2023 03:13 PM VA-TOBACCO USE ADVICE [facility] [place] [facility] Nov 22, 2023 03:13 PM VA-TOBACCO USE ICE SELLER YES [facility] [place] [facility] Nov 22, 2023 03:13 PM VA-TOBACCO USE MED NOTIFY PROVIDER [place] [facility] [place] [facility] Nov 22, 2023 03:13 PM VA-TOBACCO USE WI 30 MIN OF WAKEUP [facility] [place] [facility] Nov 22, 2023 03:13 PM VA-TOBACCO USER EVERY DAY [facility] [place] [facility] Apr 17, 2021 09:00 AM VA-TOBACCO USE 1 TO < 5 YEARS [facility] [place] [facility] Apr 17, 2021 09:00 AM VA-TOBACCO USE ADVICE [facility] [place] [facility] Apr 17, 2021 09:00 AM VA-TOBACCO USE ICE SELLER NO [facility] [place] [facility] Apr 17, 2021 09:00 AM VA-TOBACCO USE MED NO [facility] [place] [facility] Apr 17, 2021 09:00 AM VA-TOBACCO USE WI 30 MIN OF WAKEUP [place] [facility] [place] [facility] Apr 17, 2021 09:00 AM VA-TOBACCO USER EVERY DAY [place] [facility] [place] [facility] May 11, 2020 10:54 AM VA-TOBACCO DOESNT USE WI 30 MIN [facility] May 11, 2020 10:54 AM VA-TOBACCO USE > 15 LESS THAN 30 YEARS [place] [facility] May 11, 2020 10:54 AM VA-TOBACCO USE ADVICE [place] [facility] May 11, 2020 10:54 AM VA-TOBACCO USE ICE SELLER YES Vet would like Patche to help him quit. [facility] May 11, 2020 10:54 AM VA-TOBACCO USE MED NOTIFY PROVIDER Wants Patches. [place] [facility] May 11, 2020 10:54 AM VA-TOBACCO USER EVERY DAY [facility] Encounter Notes: All associated encounter notes This section contains the clinical notes associated to the Encounter. Date/Time Encounter Note(s) Provider Source Jan 23, 2024 02:56 PM LETTERS: LOCAL TITLE: PATIENT LETTER (T) STANDARD TITLE: LETTERS DATE OF NOTE: JAN 23, 2024@14:56 ENTRY DATE: JAN 23, 2024@14:56:58 AUTHOR: DELVIN WANG COSIGNER: URGENCY: STATUS: COMPLETED PATIENT LETTER (T) Has [facility] Toll Free Number Primary Care Telephone Assistance can be reached at extension [phone] [facility] scheduling can be reached at extension [phone] [facility] scheduling can be reached at ext [phone], [address] Date: JAN 23, 2024 Dear [place]: Our goal at the [facility] is to provide you with quality medical care. We have been trying to reach you unsuccessfully to schedule your follow up appt with your primary care provider JAMMIE MCFARLANE at the [facility], [address] [place] [id number]. Please call us at Saturday through Saturday, 8am-4pm to schedule this appointment. 01/23/2024 ADDENDUM STATUS: COMPLETED THIS CARPET MECHANIC MAILED LETTER TO . /james WANG ADVANCED COLLECTION AGENT Signed: 01/23/2024 14:57 Sincerely, Your Primary Care Team [facility] [address] [address] [place] [address] [phone] [facility] [address] [place] [address] [place] [address] [phone] [facility] [address] [facility],[address] [place] [id number] [place] [address] LEOPOLDO WANG Jan 23, 2024 02:55 PM ADMINISTRATIVE NOT E: LOCAL TITLE: ADMINISTRATIVE NOTE STANDARD TITLE: ADMINISTRATIVE NOTE DATE OF NOTE: JAN 23, 2024@14:55 ENTRY DATE: JAN 23, 2024@14:55:39 AUTHOR: DELVIN WANG COSIGNER: URGENCY: STATUS: COMPLETED THIS CARPET MECHANIC CALLED TO RESCHEDULE F2F APPT WITH CWM/SO/PACT 7 PROVIDER FOR CHRONIC MEDICAL CONDITIONS. NO ANSWER, COULD NOT LEAVE A MESSAGE FOR . /james WANG ADVANCED COLLECTION AGENT Signed: 01/23/2024 14:56 LEOPOLDO WANG
--- OUTSIDE RECORDS SUMMARY | 2024-03-20 08:23 | XMS_ITS | Encounter Summary ---
Author Name [facility] [place] Address [address] [place] [address] Care Team Providers Care Assistant Speech Language Pathologist Name Role Phone JAMMIE MCFARLANE Primary Care [...] Cullen's Name Patient's Relationship to Policy [facility], 2021 MEDICAI D [id number] [facility] LTER PATIENT MEDICAID MEDICAID [facility] [place] Mar 11, 2017 MEDICAI D [id number] [facility]TER PATIENT Selected Encounter This section includes the information on record at [place] for the Encounter. Date/Time Encounter Type Encounter Description Reason Pro vider Source Nov 22, 2023 12:00 AM Outpatient Encounter EVENT (HISTORICAL) IHE Encounter Template Text not used by [...] 20 appointments. The data comes from all [place] treatment [facility]. Appointment Date/Time Appointment Type Appointme nt Facility Name Dec 05, 2023 09:00 AM AMBULATORY - PSYCHIATRY [facility] Dec 19, 2023 10:00 AM AMBULATORY - PSYCHIATRY [facility] Apr 15, 2024 02:30 PM AMBULATORY - NONE [facility] Active, Pending, and Scheduled Orders This section includes a listing of several types of active, pending, and scheduled orders, including clinic medications orders, diagnostic test orders, procedure orders and consult orders; where the start date of the order is 45 days before the date of the Encounter or 45 days after the date of theEncounter. The data comes from all [facility]. Test Date/Time Test Type Test Details Facility Name Nov 22, 2023 03:53 PM Consult Order COMMUNITY CARE-COLONOSCOPY SCREENING Cons [facility] Social History: Smoking Status (Most current) and Tobacco Use (All prior to encounter date) This section includes the most current, and the historical, smoking and tobacco- related health factors from the [place] facility where the Encounter took place. Current Smoking Status This section includes the most current smoking, or tobacco-related health factor, from the [place] facility where the Encounter took place. Date/Time Current Smoking Status Comment Facil ity Nov 22, 2023 03:13 PM VA-TOBACCO USE WI 30 MIN OF WAKEUP [facility] Tobacco Use History This section includes a history of the smoking, or tobacco-related health factors, that were collected on or before the date of the Encounter. The data comes from the [place] facility where the Encounter took place. 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 [facility] [place] [facility] Nov 22, 2023 03:13 PM VA-TOBACCO USE MED NOTIFY PROVIDER [facility] Nov 22, 2023 03:13 PM VA-TOBACCO USE WI 30 MIN OF WAKEUP [place] [facility] [place] [facility] Nov 22, 2023 03:13 PM VA-TOBACCO USER EVERY DAY [facility] [place] [facility] Apr 17, 2021 09:00 AM VA-TOBACCO USE 1 TO < 5 YEARS [facility] [place] [facility] Apr 17, 2021 09:00 AM VA-TOBACCO USE ADVICE [place] [place] [facility] Apr 17, 2021 09:00 AM VA-TOBACCO USE SENIOR INFORMATION SECURITY ENGINEER NO [facility] [place] [facility] Apr 17, 2021 09:00 AM VA-TOBACCO USE MED NO [facility] [place] [facility] Apr 17, 2021 09:00 AM VA-TOBACCO USE WI 30 MIN OF WAKEUP [place] [place] [facility] Apr 17, 2021 09:00 AM VA-TOBACCO USER EVERY DAY [facility] [place] [facility] May 11, 2020 10:54 AM VA-TOBACCO DOESNT USE WI 30 MIN WAKEUP [place] [facility] [place] [facility] May 11, 2020 10:54 AM VA-TOBACCO USE > 15 LESS THAN 30 YEARS [place] [facility] [place] [facility] May 11, 2020 10:54 AM VA-TOBACCO USE ADVICE [place] [place] [facility] May 11, 2020 10:54 AM VA-TOBACCO USE 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 [facility] [place] [facility] May 11, 2020 10:54 AM VA-TOBACCO USE MED NOTIFY PROVIDER Wants Patches. [place] [facility] [place] [facility] May 11, 2020 10:54 AM VA-TOBACCO USER EVERY DAY [facility]
[2024-03-20 08:38] LABS: MANUAL DIFF FLAG NO
[2024-03-20 08:40] LABS: Basophils Percent Auto 0.7 % (0-2); Eosinophils Absolute Auto 0.1 X10*3/uL (0.0-0.4); Hematocrit 45.5 % (42.0-52.0); Hemoglobin 15.5 g/dl (14.0-18.0); Imm Gran Abs Auto 0.01 X10*3/uL (0.00-0.03); Imm Gran Pct Auto 0.2 % (0.0-0.4); Lymphocytes Absolute Auto 2.1 X10*3/uL (1.2-4.9); Lymphocytes Percent Auto 35.9 % (20-40); Mean Corpuscular HGB Conc 34.1 g/dl (31.0-36.0); Mean Corpuscular Hemoglobin 29.1 pg (27.0-33.0); Mean Corpuscular Volume 85.4 fL (80.0-98.0); Mean Platelet Volume 9.8 fL (9.4-12.4); Monocytes Absolute Auto 0.4 X10*3/uL (0.1-1.2); Monocytes Percent Auto 6.9 % (2-11); Neutrophils Absolute Auto 3.3 x10*3/uL (2.0-8.3); Neutrophils Percent Auto 55.3 % (45-73); Platelet Count 179 X10*3/uL (160-400); Red Blood Count 5.33 X10*6/uL (4.60-5.80); Red Cell Distribution Width 15.4 % (11.0-16.0); White Blood Count 5.9 X10*3/uL (4.8-10.8)
[2024-03-20 08:52] LABS: Ethanol 76 mg/dL
[2024-03-20 08:55] LABS: Alanine Aminotransferase 23 U/L (0-40); Albumin Level 3.9 g/dL (3.5-5.0); Alkaline Phosphatase 66 U/L (39-117); Anion Gap 9 (12-20); Aspartate Amino Transferase 31 U/L (5-37); Bilirubin Direct 0.2 mg/dL (0.0-0.5); Bilirubin Total 0.4 mg/dL (0.0-1.0); Blood Urea Nitrogen 6 mg/dL (9-16); C Reactive Protein < 0.10 mg/dL (< or = 0.50); Calcium 8.2 mg/dL (8.4-10.2); Carbon Dioxide 27 mmol/L (22-29); Chloride 109 mmol/L (96-108); Creatinine Clr Calc Pharmacy 96.5; Estimated Glomerular Filt Rate > 60; Glucose Random 83 mg/dL (60-115); Magnesium 1.9 mg/dL (1.6-2.6); Potassium 3.7 mmol/L (3.3-5.1); Sodium 141 mmol/L (135-145); Total Protein 7.4 g/dL (6.5-8.0)
[2024-03-20 09:01] LABS: B Type Natriuretic Peptide 40 pg/mL (<100)
[2024-03-20 09:02] LABS: Troponin-I High Sensitivity < 2.7 ng/L (<3.5-35.0)
[2024-03-20 09:17] LABS: Influenza A PCR NEGATIVE (Negative); Influenza B PCR NEGATIVE (Negative); Resp Syncy Virus RNA Qual PCR NEGATIVE (Negative); SARS COV2 PCR INHOUSE NEGATIVE (Negative)
[2024-03-20] MEDS: iohexoL 350 MG/ML 100 ML INFUS..BTL 70 ML IV (10:27)
[2024-03-20 11:23] LABS: Appearance Urine Clear; Color Urine Yellow; Glucose Urine UA Negative (Negative); Leukocyte Esterase Urine Negative (Negative); Nitrite Urine Negative (Negative); PH 6.5 (5.0-9.0); Specific Gravity - Urine >= 1.030 (1.005-1.025); Urine Blood Negative (Negative); Urine Ketones Negative (Negative); Urine Protein Trace mg/dL (Neg-Trace)
[2024-03-20 11:32] LABS: Amphetamine Screen Urine Not Detected (Not Detect); Barbiturates, Urine Not Detected (Not Detect); Benzodiazepines Screen Urine Not Detected (Not Detect); Buprenorphine Scr Not Detected (Not Detect); Cannabinoid Screen Urine POSITIVE (Not Detect); Cocaine Screen Urine Not Detected (Not Detect); Fentanyl, urine Not Detected (Not Detect); Methadone Screen, Urine Not Detected (Not Detect); Opiate Screen Urine Not Detected (Not Detect); Oxycodone Screen Urine Not Detected (Not Detect); Phencyclidine Screen Urine Not Detected (Not Detect)
[2024-03-20] MEDS: Aspirin 81 MG TAB.CHEW 324 MG PO (11:36)
--- NOTE | 2024-03-20 13:01 | PM.IMHP ---
History of Present Illness Date of Service: 03/20/24 Chief Complaint: Left-sided heaviness. 58-year-old gentleman with past medical history of hypertension, atrial fibrillation status post ablation, history of chronic constipation, active smoking and alcohol use presented to [facility] with left-sided weakness/heaviness that started yesterday afternoon while he was shopping, symptom persisted overnight and again this morning associated with headache, he denies visual symptoms, no speech impairment, no word-finding difficulty since symptoms persisted he came to emergency room and noted to have subtle left-sided weakness and noted to have difficulty in ambulation making effort to move left leg, workup in the ED showed normal noncontrast head CT and head and neck CTA, except for 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 In emergency room patient treated with aspirin his headache has now resolved but being admitted due to persistent heaviness left lower extremity, left arm heaviness has improved. Review of Systems Review of Systems: General no headache no dizziness no fever chills. CVS no chest pain, no palpitation. Respiratory no cough no sob Gastrointestinal no nausea no vomiting, no abdominal pain, chronic constipation no urgency, no frequency Musculoskeletal no pain All other system reviewed and are negative. [facility] Family History Mother HTN (hypertension) Maternal Grandmother HTN (hypertension) Surgical History Hx of hernia repair Hx of neck surgery Hx of heart surgery Social History Household Members: Family Alcohol intake: current Alcohol intake frequency: 3 or more drinks per day Alcohol type: hard liquor Patient Tobacco Use Status: Current everyday Tobacco user Tobacco use type: Cigarette Cigarette Packs Per Day: 1.5 Cigarettes Per Day: 10 Years Smoked: 15 Smoked in Last 30 Days: Yes Use of substances other than those prescribed or required for medical reasons: No Substance Use Type: Marijuana Advance Directives: No Advance Directives Information Provided: Yes Nutrition Risks: No Nutritional Risk Meds Allergies Allergy/AdvReac Type Severity Reaction Status Date / Time No Known Allergies Allergy Verified 03/20/24 07:55 Active Medications: Current Medications Acetaminophen (Acetaminophen 325 Mg Tablet) 650 mg PO Q6H PRN PRN Reason: Pain, Mild 1-3,fever,headache Calcium Carbonate (Calcium Carbonate 750 Mg Tab.Chew) 750 mg PO Q4H PRN PRN Reason: Heartburn Magnesium Hydroxide (Milk Of Magnesia 30 Ml Oral.Susp) 30 ml PO DAILY PRN PRN Reason: Constipation Melatonin (Melatonin 3 Mg Tablet) 6 mg PO BEDTIME PRN PRN Reason: Insomnia Ondansetron HCl (Ondansetron Hcl 4 Mg/2 Ml Vial) 4 mg IVPUSH Q8H PRN PRN Reason: Nausea and Vomiting Sodium Chloride (0.9 % Sodium Chloride Flush 3 Ml Syringe) 3 [facility] Medications ?Medication ?Instructions ?Recorded ?Confirmed ?Last Taken ?Type docusate sodium 100 mg capsule 100 mg PO DAILY 12/21/21 02/19/22 Unknown History (Colace) lisinopril 5 mg tablet 5 mg PO DAILY 12/21/21 02/19/22 Unknown History Physical Exam Vital Signs and Narrative: Vital Signs: Last Vital Signs Temp 98.1 F 03/20/24 12:10 Pulse 67 03/20/24 12:10 Resp 14 03/20/24 12:10 BP 170/107 H 03/20/24 12:10 Pulse Ox 100 03/20/24 12:10 O2 Del Method Room Air 03/20/24 12:10 BMI result Body Mass Index 23.9 Const: Other: General resting comfortably in no acute distress. Face symmetrical Anicteric sclera Neck no JVD. CVS regular rate rhythm, Respiratory lungs clear to auscultation, no respiratory distress, no wheeze, no rhonchi. Gastrointestinal abdomen soft, non tender, bowel sounds audible Extremities no edema. Neuro moving all 4 extremity, speech clear, cranial nerve 2-12 intact, normal strength both upper and lower extremity, gait as per ED provider making effort to move left leg. No tremors. Skin no rash Psych appropriate affect Results Labs 03/20/24 08:34 03/20/24 08:34 Labs: Laboratory Results - last 24 hr 03/20/24 03/20/24 08:34 11:15 MCV 85.4 MCH 29.1 MCHC 34.1 RDW 15.4 Plt Count 179 MPV 9.8 Immature Gran % (Auto) 0.2 Neut % (Auto) 55.3 Lymph % (Auto) 35.9 [place] % (Auto) 6.9 Eos % (Auto) 1.0 Baso % (Auto) 0.7 Lymph # (Auto) 2.1 [place] # (Auto) 0.4 Eos # (Auto) 0.1 Baso # (Auto) 0.0 Abs Immat Gran (auto) 0.01 Absolute Neuts (auto) 3.3 Absolute Nucleated RBC 0.000 Nucleated RBC % (auto) 0.0 Anion Gap 9 L Estim Creat Clear Calc 96.5 Estimated GFR > 60 Random Glucose 83 Calcium 8.2 L D Magnesium 1.9 Total Bilirubin 0.4 Direct Bilirubin 0.2 AST 31 ALT 23 Alkaline Phosphatase 66 Troponin I High Sens < 2.7 C-Reactive Protein < 0.10 B-Natriuretic Peptide 40 Total Protein 7.4 Albumin 3.9 Urine Color Yellow Urine Appearance Clear Urine pH 6.5 Ur Specific [place] >= 1.030 H Urine Protein Trace Urine Glucose (UA) Negative Urine Ketones Negative Urine Blood Negative Urine Nitrite Negative Ur Leukocyte Esterase Negative Urine Opiates Screen Not Detected Ur Buprenorphine Scrn Not Detected Ur Oxycodone Screen Not Detected Urine Methadone Screen Not Detected Urine Fentanyl Screen Not Detected Ur Barbiturates Screen Not Detected Ur Phencyclidine Scrn Not Detected Ur Amphetamines Screen Not Detected U Benzodiazepines Scrn Not Detected Urine Cocaine Screen Not Detected U Marijuana (THC) Screen POSITIVE H Ethyl Alcohol 76 Influenza Type A (PCR) NEGATIVE Influenza Type B (PCR) NEGATIVE RSV RNA Qual (PCR) NEGATIVE SARS-CoV-2 RNA (RT-PCR) NEGATIVE Imaging Radiologist's Impressions: Impressions Head/Neck CTA 03/20/24 10:08 IMPRESSION: 1. No evidence of acute cranial hemorrhage, mass effect, edema, or acute territorial infarction. 2. Moderate stenosis at the origin of the left vertebral artery. 3. Otherwise, no additional evidence of significant stenosis, occlusion, dissection, or aneurysm in the major cervical or intracranial arterial circulation. 4. No evidence of venous thrombosis. 5. Globally enlarged thyroid gland. 6. Additional ancillary findings as discussed in the body of the report. Electronically signed by: Deshawn Constantino MD 03/20/2024 11:10 AM [facility] Assessment and Plan (1) Acute left-sided weakness: Status: Acute Plan 58-year-old gentleman with past medical history significant for hypertension, alcohol use disorder, active tobacco, use disorder presented to [facility] with left-sided upper and lower extremity weakness/heaviness since yesterday afternoon. Acute left-sided upper and lower extremity weakness Multiple risk factors for stroke including hypertension and history of atrial fibrillation status post atrial fibrillation, history of tobacco use disorder Question acute CVA Normal CT head and CTA head and neck Obtain Neurology consult Good blood pressure control check lipid profile PT OT Normal speech Continue aspirin History of hypertension uncontrolled blood pressure continue lisinopril and adjust medications, follow BP. Tobacco use disorder counseling done patient declined nicotine replacement therapy. Alcohol use disorder alcohol level 76 last alcohol intake yesterday, monitor CIWA no symptoms of alcohol withdrawal at present. DVT prophylaxis with Lovenox In my clinical judgment patient requires 2 night inpatient hospitalization for further monitoring and treatment of left-sided heaviness/impaired gait and expert consultation. Quality Stroke Does the patient have a stroke diagnosis?: Yes Reason for No Anti-thrombotic by Day Two: N/A - Med Ordered VTE Prior VTE?: No VTE Risk Level:: Medical - moderate - high VTE Device Contraindication: Treatment Not Indicated VTE Drug Contraindication: N/A - Med Ordered
--- NOTE | 2024-03-20 14:52 | PM.DS ---
DS: Providers Provider Date of Service: 03/20/24 Date of admission: 03/20/24 13:14 Date of discharge: 03/20/24 Primary care physician: Unknown Physician DS: Diagnosis Discharge Diagnosis (1) Acute left-sided weakness: Status: Acute DS: Summary Hospital Course Hospital Course: History of presenting illness: Date of Service: 03/20/24 Chief Complaint: Left-sided heaviness. 58-year-old gentleman with past medical history of hypertension, atrial fibrillation status post ablation, history of chronic constipation, active smoking and alcohol use presented to [facility] with left-sided weakness/heaviness that started yesterday afternoon while he was shopping, symptom persisted overnight and again this morning associated with headache, he denies visual symptoms, no speech impairment, no word-finding difficulty since symptoms persisted he came to emergency room and noted to have subtle left-sided weakness and noted to have difficulty in ambulation making effort to move left leg, workup in the ED showed normal noncontrast head CT and head and neck CTA, except for 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 In emergency room patient treated with aspirin his headache has now resolved but being admitted due to persistent heaviness left lower extremity, left arm heaviness has improved. Hospital course: 58-year-old gentleman with past medical history significant for hypertension, alcohol use disorder, active tobacco, use disorder presented to [facility] with left-sided upper and lower extremity weakness/heaviness since yesterday afternoon, due to multiple risk factors for stroke including hypertension, history of atrial fibrillation status post ablation, history of tobacco use disorder there was a concern for acute stroke, patient CT head and CT head and neck were unremarkable, plan was for patient to be seen by Neurology and possibly undergo MRI study patient was treated with aspirin but he is adamant to leave hospital against medical advice therefore recommend outpatient follow-up with primary care physician for further workup continue aspirin 1 tablet daily, recommend good blood pressure control and strongly recommend to abstain from tobacco use. History of hypertension uncontrolled blood pressure continue lisinopril and Tobacco use disorder counseling done patient declined nicotine replacement therapy. Alcohol use disorder alcohol level 76 last alcohol intake yesterday, no symptoms of alcohol withdrawal , strongly recommend to abstain from alcohol. Time Attestation Discharge Coordination Time (in mins): 40 Quality: Safe Use of Opioids Does Pt have an Active Cancer Diagnosis on the Problem List?: No Quality: Stroke Does the patient have a stroke diagnosis?: No Physical Exam Vital Signs: Vital Signs: Last Vital Signs Temp 98.1 F 03/20/24 12:10 Pulse 67 03/20/24 12:10 Resp 14 03/20/24 12:10 BP 170/95 H 03/20/24 13:53 Pulse Ox 100 03/20/24 12:10 O2 Del Method Room Air 03/20/24 12:10 BMI result Body Mass Index 23.9 Const: Other: General resting comfortably in no acute distress. Face symmetrical Anicteric sclera Neck no JVD. CVS regular rate rhythm, Respiratory lungs clear to auscultation, no respiratory distress, no wheeze, no rhonchi. Gastrointestinal abdomen soft, non tender, bowel sounds audible Extremities no edema. Neuro moving all 4 extremity, speech clear, cranial nerve 2-12 intact, normal strength both upper and lower extremity, gait as per ED provider making effort to move left leg. No tremors. Skin no rash Psych appropriate affect DS: Data Data Completed and Pending Labs on day of discharge: Laboratory Results - last 24 hr 03/20/24 03/20/24 08:34 11:15 WBC 5.9 RBC 5.33 Hgb 15.5 Hct 45.5 MCV 85.4 MCH 29.1 MCHC 34.1 RDW 15.4 Plt Count 179 MPV 9.8 Immature Gran % (Auto) 0.2 Neut % (Auto) 55.3 Lymph % (Auto) 35.9 [place] % (Auto) 6.9 Eos % (Auto) 1.0 Baso % (Auto) 0.7 Lymph # (Auto) 2.1 [place] # (Auto) 0.4 Eos # (Auto) 0.1 Baso # (Auto) 0.0 Abs Immat Gran (auto) 0.01 Absolute Neuts (auto) 3.3 Absolute Nucleated RBC 0.000 Nucleated RBC % (auto) 0.0 Sodium 141 Potassium 3.7 Chloride 109 H Carbon Dioxide 27 Anion Gap 9 L BUN 6 L Creatinine 0.77 Estim Creat Clear Calc 96.5 Estimated GFR > 60 Random Glucose 83 Calcium 8.2 L D Magnesium 1.9 Total Bilirubin 0.4 Direct Bilirubin 0.2 AST 31 ALT 23 Alkaline Phosphatase 66 Troponin I High Sens < 2.7 C-Reactive Protein < 0.10 B-Natriuretic Peptide 40 Total Protein 7.4 Albumin 3.9 Urine Color Yellow Urine Appearance Clear Urine pH 6.5 Ur Specific [place] >= 1.030 H Urine Protein Trace Urine Glucose (UA) Negative Urine Ketones Negative Urine Blood Negative Urine Nitrite Negative Ur Leukocyte Esterase Negative Urine Opiates Screen Not Detected Ur Buprenorphine Scrn Not Detected Ur Oxycodone Screen Not Detected Urine Methadone Screen Not Detected Urine Fentanyl Screen Not Detected Ur Barbiturates Screen Not Detected Ur Phencyclidine Scrn Not Detected Ur Amphetamines Screen Not Detected U Benzodiazepines Scrn Not Detected Urine Cocaine Screen Not Detected U Marijuana (THC) Screen POSITIVE H Ethyl Alcohol 76 Influenza Type A (PCR) NEGATIVE Influenza Type B (PCR) NEGATIVE RSV RNA Qual (PCR) NEGATIVE SARS-CoV-2 RNA (RT-PCR) NEGATIVE Discharge Plan Discharge Anticipated Discharge Date/Time: 03/20/24 14:48 Patient Disposition: Left Against Medical Advice Discharge Diagnosis: Left-sided weakness Referrals: Physician,Unknown J [Primary Care Provider] - 1 Week Discharge Medications: New aspirin 81 mg capsule 81 mg PO DAILY Qty: 30 0RF Continued polyethylene glycol 3350 [Miralax] 17 gram/dose powder 17 g PO DAILY Qty: 510 6RF docusate sodium [Colace] 100 mg capsule 200 mg PO BEDTIME Qty: 60 5RF bisacodyl [Dulcolax (bisacodyl)] 10 mg suppository 10 mg MT DAILY PRN (Reason: constipation) Qty: 20 0RF lisinopril 5 mg tablet 5 mg PO DAILY docusate sodium [Colace] 100 mg capsule 100 mg PO DAILY Citrucel 500 mg tablet 500 mg PO TID Qty: 90 5RF Discharge Orders: Discharge Order (Routine); Ordered 03/20/24 Ordered By: Alyse Pena Diet: Advance to usual diet Activity on Discharge: As tolerated Print Language: Occitan Care Plan Goals: Left-sided weakness high risk for stroke with history of smoking, hypertension and prior history of atrial fibrillation status post ablation Take aspirin 1 tablet daily Returned to ED with worsening left-sided weakness or new neurological deficit Health Concerns: Hypertension continue home medication Strongly recommend to abstain from smoking and alcohol use Plan of Treatment: Outpatient follow-up with primary care physician call for appointment Assessment: As above
--- NOTE | 2024-03-20 16:12 | PHA.MEDREC ---
Addendum entered by Eloise Reynoso [facility] 03/20/24 16:28: REVIEWED Original Note: Pharmacy Consult ? Medication Reconciliation Pharmacy has completed the medication reconciliation. Spoke with patient and he stated he is getting medications from the [facility] in [place] and specifically stated he is getting a Hydrochlorothiazide and Lisinopril tablet from there once daily but did not remember the dose of them. I got a list from the [facility] and confirmed the patients med rec; Hydrochlorothiazide 25mg and Lisinopril 5mg tabs were on the list but as of February 20, 2024. Patient states he took all his medications yesterday.
== END 2024-03-20 14:55 | disposition left against medical advice (07) | DRG 57 ==
LOC: HO.ED 11:42 → HO.EDOVER 13:15
PROVIDERS: Admitting Provider Hospitalist; Emergency Provider Emergency Medicine; Visit Provider Hospitalist
DX: G81.94 Hemiplegia, unspecified affecting left nondominant side (principal); F17.210 Nicotine dependence, cigarettes, uncomplicated; K59.09 Other constipation; I10 Essential (primary) hypertension; Y90.3 Blood alcohol level of 60-79 mg/100 ml; F10.90 Alcohol use, unspecified, uncomplicated; Z20.822 Contact with and (suspected) exposure to COVID-19; Z71.6 Tobacco abuse counseling; Z79.82 Long term (current) use of aspirin; Z79.899 Other long term (current) drug therapy
CPT/HCPCS: 0241U; 36415; 70496; 70498; 80048; 80076; 80307; 81003; 83735; 83880; 84484; 85025; 86140; 93005; 97161; 97165; 99285; Q9967

== ENCOUNTER → 2024-03-20 07:59 | Outpatient (BNV) | payer OTHER, SELFPAY | PROVIDERS: Emergency Provider Emergency Medicine; Visit Provider Radiology Diagnostic Radiology | DX: I65.02 Occlusion and stenosis of left vertebral artery (principal); E04.9 Nontoxic goiter, unspecified | CPT/HCPCS: 70496; 70498 ==

== ENCOUNTER → 2024-03-20 07:59 | Outpatient (BNV) | payer OTHER, SELFPAY | PROVIDERS: Admitting Provider Hospitalist; Emergency Provider Emergency Medicine; Visit Provider Internal Medicine Cardiovascular Disease | DX: I45.19 Other right bundle-branch block (principal); R94.31 Abnormal electrocardiogram [ECG] [EKG] | CPT/HCPCS: 93010 ==

== ENCOUNTER → 2024-03-20 13:14 | Outpatient (BNV) | payer OTHER, SELFPAY | PROVIDERS: Admitting Provider Hospitalist; Emergency Provider Emergency Medicine; Visit Provider Hospitalist | DX: R53.1 Weakness (principal) | CPT/HCPCS: 99239; 99499 ==

== ENCOUNTER 2024-10-18 03:02 | Emergency (ER) | payer OTHER, MEDICAID, SELFPAY ==
[2024-10-18 03:11] VITALS: BP 124/75; BP 140/82; PULSE 64; PULSE 75; RESP 16; TEMP 37; O2SAT 96; O2SAT 98; BMI 25.4
--- NOTE | 2024-10-18 03:13 | ECG_ITS ---
Test Reason : CHEST PAIN Blood Pressure : */* mmHG Vent. Rate : 65 BPM Atrial Rate : 65 BPM P-R Int : 154 ms QRS Dur : 94 ms QT Int : 420 ms P-R-T Axes : 37 63 -46 degrees QTcB Int : 436 ms Normal sinus rhythm Incomplete right bundle branch block T wave abnormality, consider inferolateral ischemia Abnormal ECG When compared with ECG of 20-Mar-2024 08:12, No significant change was found Referred By: Isa Sloan Electronically Signed By: Nic Carrasco
--- NOTE | 2024-10-18 03:47 | ED.EXTPRO ---
HPI - Extremity Problem General Chief complaint: Extremity Problem Stated complaint: PARMINDER UE SWELLING,OFF ALL MEDS FOR DAYS PER EMS Time Seen by Provider: 10/18/24 03:11 Source: patient and EMS Mode of arrival: EMS Limitations: other (poor historian) History of Present Illness ED Provider: GILDARDO HPI Narrative: 59 yo male with PMH afib off his thinners due to issues with Rx, HTN, HLD, prior stroke. He is a poor historian. [place] in past as well but I see no record of this. He comes in today with c/o swelling that resolved in his legs and L hand > R hand swelling without rash or trauma. He has no CP/SOB. He is not med compliant. No CP/SOB. He has been telling varying stories to myself and RN he denies chest pain to me but then told RN he had GERD like chest pain. He states most of his work up was done at [facility]. MD Complaint: extremity swelling Onset (ago): day(s) (1) Location: left, right, upper extremity and lower extremity Radiation: none Relieving factors: nothing Exacerbating factors: other (elevating his legs helped) Associated symptoms: denies other symptoms Related Data Home Medications ?Medication ?Instructions ?Recorded ?Confirmed docusate sodium 100 mg capsule 100 mg PO DAILY 12/21/21 03/20/24 (Colace) lisinopril 5 mg tablet 5 mg PO DAILY 12/21/21 03/20/24 aspirin 81 mg tablet,delayed 81 mg PO DAILY 03/20/24 03/20/24 release bisacodyl 10 mg rectal suppository 10 mg [place] DAILY constipation 03/20/24 03/20/24 (Dulcolax (bisacodyl)) hydrochlorothiazide 25 mg tablet 25 mg PO DAILY 03/20/24 03/20/24 nicotine 14 mg/24 hr daily 1 patch transdermal DAILY 03/20/24 03/20/24 transdermal patch Previous Rx's ?Medication ?Instructions ?Recorded furosemide 20 mg tablet (Lasix) 20 mg PO DAILY #3 tabs 10/18/24 Allergies Allergy/AdvReac Type Severity Reaction Status Date / Time No Known Allergies Allergy Verified 10/18/24 03:23 Review of Systems Review of Systems: Constitutional : No Fever, No Chills ENT/Mouth : No sore throat, No Rhinorrhea, No Swallowing Difficulty Eyes: No Eye Pain, No Swelling, No Redness Cardiovascular : No Chest Pain, no SOB, No Orthopnea, positive Edema Respiratory : No Cough, No Sputum, No Wheezing, positive dyspnea Gastrointestinal : No Nausea, No Vomiting, No Diarrhea, No abdominal Pain, No Hematochezia, No Melena Genitourinary : No Dysuria, No Urinary Frequency, No Hematuria Musculoskeletal : No joint pain, No Myalgias Skin : No Skin Lesions, No rash Neuro : No Weakness, No Numbness, No Dizziness, No Headache All other systems reviewed and are negative [facility], [facility] Past Medical History Attestation statement: The following information was validated with the patient. Source: old records reviewed Medical History (Updated 10/18/24 @ 04:35 by Isa Sloan DO) Chronic constipation History of atrial fibrillation without current medication Surgical History Hx of hernia repair Hx of neck surgery Hx of heart surgery Family History Family History Mother HTN (hypertension) Maternal Grandmother HTN (hypertension) Social History Social History Household Members: Family Alcohol intake: current Alcohol intake frequency: 3 or more drinks per day Alcohol type: hard liquor Patient Tobacco Use Status: Current everyday Tobacco user Tobacco use type: Cigarette Cigarette Packs Per Day: 1.5 Cigarettes Per Day: 10 Years Smoked: 15 Smoked in Last 30 Days: Yes Use of substances other than those prescribed or required for medical reasons: Yes Substance Use Type: Marijuana Substance Use Frequency: Daily Last Used Substance: Hours (ago) Advance Directives: No Physical Exam Vital Signs: Vital Signs: Last Vital Signs Temp 98.6 F 10/18/24 03:11 Pulse 64 10/18/24 03:11 Resp 16 10/18/24 03:11 BP 124/75 10/18/24 03:11 Pulse Ox 98 10/18/24 03:11 O2 Del Method Room Air 10/18/24 03:11 BMI result Body Mass Index 25.4 Appearance: Alert. Oriented X3. No acute distress. Eyes: Pupils equal, round and reactive to light. ENT: Pharynx normal. Neck: Normal inspection. Neck supple. CVS: Normal heart rate and rhythm. Pulses normal. Respiratory: No respiratory distress. Breath sounds normal. Abdomen: Soft and nontender. Skin: Skin warm and dry. Normal skin color. Normal skin turgor. Extremities: he has no lower ext edema it is not pitting, his L hand is swollen but just at the dorsum and his R hand he states is swollen but I do not appreciate it. There is no redness/open wounds he is NV intact, there is no extensive body pitting edema as described in triage Neuro: Oriented X 3. No motor deficit. No sensory deficit. CN2-12 intact Medical Decision Making Medical Decision Making [facility] Narrative: 59 yo male with PMH afib off his thinners due to issues with Rx, HTN, HLD, prior stroke here with c/o resolved leg edema and now with hand edema - L hand more swollen but no signs of infection and normal ROM of hand. He is NV intact, could be trauma, CHF, hypoalbuminemia. Differential Diagnosis Differential Diagnoses: The differential diagnosis associated with the presentation includes trauma, CHF, low albumin, insect bite Lab Data [facility] Lab Attestation statement: I reviewed the patient's lab results. 10/18/24 03:46 10/18/24 03:46 Labs: Lab Results 10/18/24 Range/Units 03:46 WBC 6.1 (4.8-10.8) X10*3/uL RBC 4.49 L (4.60-5.80) X10*6/uL Hgb 12.4 L (14.0-18.0) g/dl Hct 36.4 L (42.0-52.0) % MCV 81.1 (80.0-98.0) fL MCH 27.6 (27.0-33.0) pg MCHC 34.1 (31.0-36.0) g/dl RDW 15.1 (11.0-16.0) % Plt Count 187 (160-400) X10*3/uL MPV 9.5 (9.4-12.4) fL Immature Gran % (Auto) 0.3 (0.0-0.4) % Neut % (Auto) 41.2 L (45-73) % Lymph % (Auto) 48.0 H (20-40) % [place] % (Auto) 8.0 (2-11) % Eos % (Auto) 1.8 (0-4) % Baso % (Auto) 0.7 (0-2) % Lymph # (Auto) 2.9 (1.2-4.9) X10*3/uL [place] # (Auto) 0.5 (0.1-1.2) X10*3/uL Eos # (Auto) 0.1 (0.0-0.4) X10*3/uL Baso # (Auto) 0.0 (0.0-0.2) X10*3/uL Abs Immat Gran (auto) 0.02 (0.00-0.03) X10*3/uL Absolute Neuts (auto) 2.5 (2.0-8.3) x10*3/uL Absolute Nucleated RBC 0.000 (0.0-0.012) X10*3/uL Nucleated RBC % (auto) 0.0 (0.0-0.2) /100WBC Sodium 141 (135-145) mmol/L Potassium 3.3 (3.3-5.1) mmol/L Chloride 108 (96-108) mmol/L Carbon Dioxide 23 (22-29) mmol/L Anion Gap 13 (12-20) BUN 10 (9-16) mg/dL Creatinine 0.82 (0.5-1.4) mg/dL Estim Creat Clear Calc 89.5 Estimated GFR > 60 Random Glucose 65 (60-115) mg/dL Calcium 8.4 (8.4-10.2) mg/dL Magnesium 2.4 (1.6-2.6) mg/dL Total Bilirubin 0.3 (0.0-1.0) mg/dL Direct Bilirubin 0.1 (0.0-0.5) mg/dL AST 32 (5-37) U/L ALT 15 (0-40) U/L Alkaline Phosphatase 50 (39-117) U/L Troponin I High Sens 5.9 D (<3.5-35.0) ng/L B-Natriuretic Peptide 138 H (<100) pg/mL Total Protein 6.1 L (6.5-8.0) g/dL Albumin 3.6 (3.5-5.0) g/dL Independent Interpretation I performed an independent interpretation of an: EKG Interpretation: Rate: 65 Rhythm: NSR Roper: normal Normal P waves. Normal CHARO. Normal QRS complex. ST T wave : inverted t waves II, III, aVF, V4-V6, no SIMBA - LVH pattern qTC: 436 prior studies: no change from prior The study has been interpreted contemporaneously by me. . Independent Historian Clinical information obtained from an independent historian. History obtained from or confirmed by: EMS External Record Review External record reviewed: Outpatient record Discharge Plan Discharge Clinical Impression: Edema Qualifiers: Edema type: localized Qualified Code(s): R60.0 - Localized edema Patient Disposition: Home, Self-Care Instructions: Edema (ED) Additional Instructions: EKG and labs overall reassuring you do have some mild anemia your doctor needs to follow this. you are not in afib today please take diuretics for the next three days the next dose would be on Saturday do not take the hydrochlorothiazide while on it return for any worsening symptoms, swelling or any other concerns. Prescriptions: New furosemide [Lasix] 20 mg tablet 20 mg PO DAILY Qty: 3 0RF No Action nicotine 14 mg/24 hr Patch 24 Hour 1 patch TRANSDERMAL DAILY aspirin 81 mg Tablet,Delayed Release (Dr/Ec) 81 mg PO DAILY hydrochlorothiazide 25 mg Tablet 25 mg PO DAILY bisacodyl [Dulcolax (bisacodyl)] 10 mg suppository 10 mg [place] DAILY lisinopril 5 mg tablet 5 mg PO DAILY docusate sodium [Colace] 100 mg capsule 100 mg PO DAILY Print Language: Israeli
[2024-10-18 03:50] LABS: MANUAL DIFF FLAG NO
[2024-10-18 03:51] LABS: Hematocrit 36.4 % (42.0-52.0); Hemoglobin 12.4 g/dl (14.0-18.0); Imm Gran Abs Auto 0.02 X10*3/uL (0.00-0.03); Imm Gran Pct Auto 0.3 % (0.0-0.4); Lymphocytes Absolute Auto 2.9 X10*3/uL (1.2-4.9); Mean Corpuscular HGB Conc 34.1 g/dl (31.0-36.0); Mean Corpuscular Hemoglobin 27.6 pg (27.0-33.0); Mean Corpuscular Volume 81.1 fL (80.0-98.0); NRBC Abs Auto 0.000 X10*3/uL (0.0-0.012); NRBC Pct Auto 0.0 /100WBC (0.0-0.2); Platelet Count 187 X10*3/uL (160-400); Red Blood Count 4.49 X10*6/uL (4.60-5.80); White Blood Count 6.1 X10*3/uL (4.8-10.8)
[2024-10-18 04:05] LABS: Alanine Aminotransferase 15 U/L (0-40); Albumin Level 3.6 g/dL (3.5-5.0); Alkaline Phosphatase 50 U/L (39-117); Anion Gap 13 (12-20); Aspartate Amino Transferase 32 U/L (5-37); Blood Urea Nitrogen 10 mg/dL (9-16); Calcium 8.4 mg/dL (8.4-10.2); Carbon Dioxide 23 mmol/L (22-29); Chloride 108 mmol/L (96-108); Creatinine Clr Calc Pharmacy 89.5; Estimated Glomerular Filt Rate > 60; Magnesium 2.4 mg/dL (1.6-2.6); Potassium 3.3 mmol/L (3.3-5.1); Sodium 141 mmol/L (135-145); Total Protein 6.1 g/dL (6.5-8.0)
[2024-10-18 04:10] LABS: B Type Natriuretic Peptide 138 pg/mL (<100)
[2024-10-18 04:12] LABS: Troponin-I High Sensitivity 5.9 ng/L (<3.5-35.0)
[2024-10-18 04:53] VITALS: BP 133/86
[2024-10-18 04:54] VITALS: BP 133/86; PULSE 71; RESP 19; TEMP 36.6; O2SAT 100
[2024-10-18 04:59] VITALS: BP 133/86; PULSE 71; RESP 19; TEMP 36.6; O2SAT 100
== END 2024-10-18 05:04 | disposition home or self-care (01) ==
PROVIDERS: Emergency Provider Emergency Medicine
DX: R60.0 Localized edema (principal); D64.9 Anemia, unspecified; R07.9 Chest pain, unspecified; I48.91 Unspecified atrial fibrillation; I10 Essential (primary) hypertension; E78.5 Hyperlipidemia, unspecified
CPT/HCPCS: 36415; 80048; 80076; 83735; 83880; 84484; 85025; 93005; 99283; 99284

== ENCOUNTER → 2024-10-18 03:13 | Outpatient (BNV) | payer MEDICAID, SELFPAY | PROVIDERS: Emergency Provider Emergency Medicine; Visit Provider Internal Medicine Cardiovascular Disease | DX: I45.10 Unspecified right bundle-branch block (principal) | CPT/HCPCS: 93010 ==